=== PATIENT | male | born 1940 | race Caucasian/White ===

== ENCOUNTER 2016-07-15 12:53 | Outpatient (CLI) | payer MEDICARE, OTHER | END 2016-07-15 12:54 | disposition home or self-care (01) | DX: I34.8 Other nonrheumatic mitral valve disorders (principal) ==

== ENCOUNTER 2016-08-15 09:46 | Outpatient (CLI) | payer MEDICARE | END 2016-08-15 09:47 | disposition home or self-care (01) | DX: I34.8 Other nonrheumatic mitral valve disorders (principal) ==

== ENCOUNTER 2016-08-22 09:20 | Outpatient (CLI) | payer MEDICARE | END 2016-08-22 09:21 | disposition home or self-care (01) | DX: I34.8 Other nonrheumatic mitral valve disorders (principal) ==

== ENCOUNTER 2016-08-29 09:54 | Outpatient (CLI) | payer MEDICARE | END 2016-08-29 09:55 | disposition home or self-care (01) | DX: I34.8 Other nonrheumatic mitral valve disorders (principal) ==

== ENCOUNTER 2016-09-05 11:17 | Outpatient (CLI) | payer MEDICARE | END 2016-09-05 11:18 | disposition home or self-care (01) | DX: I34.8 Other nonrheumatic mitral valve disorders (principal) ==

== ENCOUNTER 2016-09-12 09:59 | Outpatient (CLI) | payer MEDICARE | END 2016-09-12 10:00 | disposition home or self-care (01) | DX: I34.8 Other nonrheumatic mitral valve disorders (principal) ==

== ENCOUNTER 2016-11-21 16:02 | Outpatient (CLI) | payer MEDICARE | END 2016-11-21 16:03 | disposition home or self-care (01) | LOC: RT 16:02 | PROVIDERS: ATTEND Internal Medicine Cardiovascular Disease | DX: I48.91 Unspecified atrial fibrillation (principal); I25.10 Atherosclerotic heart disease of native coronary artery without angina pectoris | CPT/HCPCS: 93005 ==

== ENCOUNTER 2017-01-01 10:43 | Outpatient (CLI) | payer MEDICARE | END 2017-01-01 10:44 | disposition home or self-care (01) | LOC: DI 10:43 | PROVIDERS: ATTEND Internal Medicine Cardiovascular Disease | DX: I48.91 Unspecified atrial fibrillation (principal); I25.10 Atherosclerotic heart disease of native coronary artery without angina pectoris | CPT/HCPCS: 93306 ==

== ENCOUNTER 2017-03-03 14:42 | Outpatient (CLI) | payer MEDICARE ==
--- NOTE | 2017-03-03 15:20 | XRAY Report ---
THREE-VIEW RIGHT FOOT: 03/03/2017 CLINICAL INDICATION: Metatarsal pain. FINDINGS: AP, lateral, oblique views of the right foot demonstrate no evidence of acute fracture. O steoarthritic changes are present in the interphalangeal joints. No radiopaque foreign body is seen in the soft tissues. IMPRESSION: OSTEOARTHRITIS. NO EVIDENCE OF FRACTURE. JOB #: [id number] EXT JOB #:[id number]
== END 2017-03-03 14:43 | disposition home or self-care (01) ==
LOC: DI 14:42
PROVIDERS: ATTEND Internal Medicine
DX: M77.41 Metatarsalgia, right foot (principal); M19.071 Primary osteoarthritis, right ankle and foot

== ENCOUNTER 2018-04-07 10:21 | Outpatient (CLI) | payer MEDICARE | END 2018-04-07 10:22 | disposition home or self-care (01) | LOC: SC 10:21 | PROVIDERS: ATTEND Internal Medicine Pulmonary Disease | DX: G47.10 Hypersomnia, unspecified (principal); R06.83 Snoring | CPT/HCPCS: 99203; G0463; 99212 ==

== ENCOUNTER 2018-05-10 19:28 | Outpatient (CLI) | payer MEDICARE | END 2018-05-10 19:29 | disposition home or self-care (01) | LOC: SC 19:28 | PROVIDERS: ATTEND Internal Medicine Pulmonary Disease | DX: R06.83 Snoring (principal); G47.10 Hypersomnia, unspecified | CPT/HCPCS: 95810 ==

== ENCOUNTER 2018-06-23 13:09 | Outpatient (CLI) | payer MEDICARE | END 2018-06-23 13:10 | disposition home or self-care (01) | LOC: SC 13:09 | PROVIDERS: ATTEND Internal Medicine Pulmonary Disease | DX: R06.83 Snoring (principal) | CPT/HCPCS: 99213; G0463; 99212 ==

== ENCOUNTER 2019-02-09 10:13 | Outpatient (CLI) | payer MEDICARE | END 2019-02-09 10:14 | disposition home or self-care (01) | LOC: DI 10:13 | PROVIDERS: ATTEND Internal Medicine Cardiovascular Disease | DX: Z98.890 Other specified postprocedural states (principal); I34.0 Nonrheumatic mitral (valve) insufficiency | CPT/HCPCS: 93306 ==

== ENCOUNTER 2019-08-03 18:54 | Outpatient (CLI) | payer MEDICARE ==
--- NOTE | 2019-08-04 20:28 | Ultrasound Report ---
Reason: EDEMA OF LOWER EXTREMITY Procedure Date: 08/03/2019 Accession Number: [id number] / [id number] Procedure: US - Duplex Ext Veins Right CPT Code: Final Report FULL RESULT: EXAM: RIGHT LOWER EXTREMITY VENOUS ULTRASOUND EXAM DATE: 08/03/2019 07:59 PM. CLINICAL HISTORY: EDEMA OF LOWER EXTREMITY. "Localized edema right leg". COMPARISON: None. TECHNIQUE: Real-time sonographic vascular imaging was performed by the space buyer through the lower extremity utilizing both color-flow and Doppler spectral analysis. Multiple technical sales representatives static images were saved for review. FINDINGS: Common Femoral Vein (CFV): Normal. CFV-GSV Junction: Normal. Profunda Femoral Vein (PFV): Normal. Femoral Vein (FV) Prox: Normal. Femoral Vein (FV) Mid: Normal. Femoral Vein (FV) Dist: Normal. Popliteal Vein: Normal. Posterior Tibial Veins: Normal. Peroneal Veins: Normal. Contralateral Side CFV: Normal. Other: Prominent right groin subcutaneous 1.8 x 0.9 x 0.8 cm lymph node. Small quantity of anterior knee simple patellar recess joint fluid. IMPRESSION: 1. No evidence for deep venous thrombosis. 2. Small quantity of fluid anterior right knee. RADIA
== END 2019-08-03 18:55 | disposition home or self-care (01) ==
LOC: DI 18:54
PROVIDERS: ATTEND Registered Nurse
DX: R60.0 Localized edema (principal); M25.461 Effusion, right knee

== ENCOUNTER 2019-08-07 16:53 | Emergency (ER) | payer MEDICARE ==
--- NOTE | 2019-08-07 17:08 | ED Physician Documentation ---
PD HPI LOWER EXT INJURY - Stated complaint Stated Complaint: RT LEG SWELLING - Chief complaint Chief Complaint: Heent - History obtained from History obtained from: Patient - History of Present Illness PD HPI LOW EXT INJURY LOCATION: Right, Knee Type of injury: Twist (he was kneeling on floor and started to get up, with slight external rotation of the knee and felt a pop and abrupt onset of pain to the knee. Pain along medial and posterior aspect. Has had continued pain in knee, with swelling of it, and developed some swelling of lower leg as well. Pain with getting up from sitting and initially straightening the leg. Not as painful with just standing. Hurts with walking. Seen by Clinic 2 days after and had U/S of leg to eval for DVT, which was negative. has had persistent and worsening swelling of the right knee, now hurting with walking and ROM.). No: Fall Where injury occurred: Home Timing - onset: How many days ago (6) Timing - duration: Days (6) Timing - details: Abrupt onset, Still present Worsened by: Palpating Associated symptoms: Swelling. No: Weakness, Numbness Similar symptoms before: Has not had sx before Recently seen: Clinic (4 days ago and ordered U/S of the leg. Told to take ibuprofen.) Review of Systems Constitutional: denies: Fever, Chills Skin: denies: Abrasion (s), Laceration (s) Musculoskeletal: reports: Extremity swelling (right knee and then right lower leg and ankle) Neurologic: denies: Focal weakness, Numbness PD PAST MEDICAL HISTORY - Past Medical History Cardiovascular: Other Respiratory: Pneumonia Endocrine/Autoimmune: None GI: None : None HEENT: Chronic hearing loss Psych: None Musculoskeletal: None Derm: None - Past Surgical History General: Appendectomy - Present Medications Home Medications: Ambulatory Orders Medication Instructions Recorded Confirmed Finasteride 5 mg PO DAILY 02/10/15 02/13/15 Hydrocodone/Acetaminophen [[place] 1 each PO Q6H PRN #15 tablet 08/07/19 5-325 Tablet] Naproxen 375 mg PO BID #20 tablet 08/07/19 - Allergies Allergies/Adverse Reactions: Allergies Allergy/AdvReac Type Severity Reaction Status Date / Time latex Allergy Rash Verified 08/07/19 16:57 Sulfa (Sulfonamide Allergy Unknown Verified 08/07/19 16:57 Antibiotics) PD ED PE NORMAL - Vitals Vital signs reviewed: Yes - General General: Alert and oriented X 3, No acute distress, Well developed/nourished - Derm Derm: Normal color, Warm and dry - Extremities Extremities: No calf tenderness / cord, Other (right knee with large effusion. Mild redness medial aspect. No skin lesions. Posteriorly not tender. Tender medial and anterior areas. Pain with ROM and with stress testing, particularly front to back (cruciate testing) and also pivoting (suggests meniscal).). No: No edema (has edema in lower leg and foot. Not tender in calf. ) - Neuro Neuro: Alert and oriented X 3, No motor deficit, No sensory deficit Results - Vitals Vitals: Vital Signs - 24 hr 08/07/19 08/07/19 08/07/19 16:57 17:24 18:30 Temperature 36.5 C 36.8 C Heart Rate 69 70 70 Respiratory 14 16 14 Rate Blood Pressure 136/69 H 126/67 O2 Saturation 100 100 95 Oxygen O2 Source Room air - Labs Labs: Microbiology 08/07/19 18:24 Body Fluid Culture - Preliminary Synovial Fluid Laboratory Tests 08/07/19 08/07/19 18:24 18:24 Fluid Source SYNOVIAL Fluid Color YELLOW Fluid Clarity CLOUDY Fluid WBC 83569 Fluid RBC 3000 Fluid Neutrophils % 95 Fluid Lymphocytes % 5 Fld Mesothelial Cell % Not Reportable Fluid Crystals NONE SEEN - Rads (name of study) right knee Radiology: Prelim report reviewed (no fractures.), See rad report Procedures - Arthrocentesis Joint: Knee Preparation: Consent obtained (verbal), Sterile prep and drape. No: Ultrasound used Anesthesia: Lidocaine 1% Fluid: Sent for cell count, Cloudy, Sent for crystals, Sent for culture, Fluid obtained - cc (80) Aftercare: Dressing applied, No complications PD MEDICAL DECISION MAKING - ED course Complexity details: considered differential (sounds like meniscal or cruciate injury with effusion increasing. Does not seem infectious. no history of gout. ), d/w patient Departure - Departure Disposition: 01 Home, Self Care Clinical Impression: Internal derangement of right knee, Knee effusion, right Condition: Stable Record reviewed to determine appropriate education?: Yes Instructions: ED Meniscal Injury Knee Poss Follow-Up: Eloy Rocha MD [Primary Care Provider] - Victor M Watkins MD [Provider Admit Priv/Credential] - Prescriptions: Hydrocodone/Acetaminophen [[place] 5-325 Tablet] 1 each PO Q6H PRN #15 tablet PRN Reason: Pain Naproxen 375 mg PO BID #20 tablet Comments: Use the Anthony wrap on the knee to help reduce swelling in it. Make sure is not too tight so does not promote swelling below the knee and in the ankle. He is a knee brace when up and around to limit the range of motion and help support the ligaments and cartilage. Use an anti-inflammatory such as naproxen twice daily for the next 7 to 10 days with food. To that add Tylenol or hydrocodone if needed for pains. I think you have an injury of either the cruciate ligament or the cartilage in the knee and that is promoting the swelling in response. Follow-up with orthopedics this coming week, call Friday for an appointment. They can reassess it with the swelling down and hurting less to try to get a better sense of the injury there. The knee brace and wrap are appropriate treatments for those c onditions initially. Discharge Date/Time: 08/07/19 19:14
[2019-08-07] MEDS ORDERED: NAPROXEN 250 MG TABLET PO STA (17:27)
[2019-08-07] MEDS ORDERED: ACETAMINOPHEN 325 MG TABLET PO STA (17:27)
--- NOTE | 2019-08-07 18:19 | XRAY Report ---
Reason: KNEE INJ X 1 WEEK AGO (RT) Procedure Date: 08/07/2019 Accession Number: [id number] / [id number] Procedure: XR - Knee 2 View RT CPT Code: Final Report FULL RESULT: EXAM: RIGHT KNEE RADIOGRAPHY EXAM DATE: 08/07/2019 05:48 PM. CLINICAL HISTORY: Pain and swelling after injury COMPARISON: None. TECHNIQUE: 3 views. FINDINGS: Bones: Normal. No fractures or bone lesions. Joints: Normal. No effusion. No subluxations. Soft Tissues: There is suprapatellar soft tissue swelling. IMPRESSION: 1. Suprapatellar soft tissue swelling. No fracture or subluxation. RADIA
[2019-08-07 19:13] LABS: BF COLOR YELLOW; BF SOURCE SYNOVIAL; CC,BF RBC 3000 /mm^3
[2019-08-07 19:17] VITALS: BP 126/67
[2019-08-07 20:44] LABS: LYMPHOCYTES %,BODY FLUID 5
--- NOTE | 2019-08-09 20:22 | ED Physician Documentation ---
ED Addendum - Addendum Addendum: I reviewed patient's culture results from his knee arthrocentesis at 19:45 on 08/09/2019, they show 2+ growth of staph aureus. Reviewing his chart this does appear to be a joint arthrocentesis and not a prepatellar aspiration, so this is consistent with septic arthritis. I called the patient and reached him at his home, he is having continued pain and swelling of the knee, I discussed that he has an infection and needs to be seen tonight. Unfortunately we do not have orthopedics coverage, we spoke with [facility], and the ED provider there states they do have orthopedics coverage and are happy to see the patient. We are faxing records over to the [facility] department. Patient states he will drive to [facility], he also is aware that he can come here if needed, and we would arrange transfer to the proper orthopedic care.
== END 2019-08-07 19:14 | disposition home or self-care (01) ==
LOC: ED 16:53
DX: M23.91 Unspecified internal derangement of right knee (principal); M25.461 Effusion, right knee
CPT/HCPCS: 20610; 73560; 87070; 87181; 87205; 89051; 89060; 99283; 99284; A9270

== ENCOUNTER 2019-09-09 09:42 | Outpatient (CLI) | payer MEDICARE | END 2019-09-09 09:43 | disposition home or self-care (01) | LOC: LAB.S 09:42 | PROVIDERS: ATTEND Orthopaedic Surgery | DX: M00.061 Staphylococcal arthritis, right knee (principal) | CPT/HCPCS: 36415; 86140 ==

== ENCOUNTER 2019-09-21 11:22 | Outpatient (CLI) | payer MEDICARE | END 2019-09-21 11:23 | disposition home or self-care (01) | LOC: LAB.S 11:22 | PROVIDERS: ATTEND Orthopaedic Surgery | DX: M00.061 Staphylococcal arthritis, right knee (principal) | CPT/HCPCS: 36415; 86140 ==

== ENCOUNTER 2023-09-17 10:22 | Outpatient (CLI) | payer MEDICARE ==
[2023-09-17 10:36] LABS: BASOPHILS % (AUTO) 0.4 %; EOSINOPHILS # (AUTO) 0.2 10^3/uL (0.0-0.7); EOSINOPHILS % (AUTO) 3.2 %; HCT - HEMATOCRIT 37.9 % (42.0-52.0); LYMPHOCYTES # (AUTO) 1.4 10^3/uL (1.5-3.5); LYMPHOCYTES % (AUTO) 24.7 %; MEAN CORPUSCULAR HEMOGLOBIN 30.4 pg (27.0-31.0); MEAN CORPUSCULAR HGB CONC 31.7 g/dL (32.0-36.0); MEAN CORPUSCULAR VOLUME 95.9 fL (80.0-94.0); MEAN PLATELET VOLUME 8.7 fL (7.4-11.4); MONOCYTES # (AUTO) 0.3 10^3/uL (0.0-1.0); MONOCYTES % (AUTO) 5.6 %; NEUTROPHILS # (AUTO) 3.7 10^3/uL (1.5-6.6); NEUTROPHILS % (AUTO) 65.9 %; PLT - PLATELET COUNT 164 10^3/uL (130-450); RED BLOOD COUNT 3.95 10^6/uL (4.70-6.10); RED CELL DISTRIBUTION WIDTH 13.9 % (12.0-15.0); WHITE BLOOD COUNT 5.6 x10^3/uL (4.8-10.8)
[2023-09-17 11:19] LABS: THYROID STIMULATING HORMONE 1.4 uIU/mL (0.34-5.60)
[2023-09-17 11:27] LABS: ALBUMIN 4.2 g/dL (3.2-5.5); ALBUMIN/GLOBULIN RATIO 1.6 (1.0-2.2); BILIRUBIN,TOTAL 0.7 mg/dL (0.2-1.0); CALCIUM 9.6 mg/dL (8.5-10.3); CREATININE 1.2 mg/dL (0.6-1.3); TOTAL PROTEIN 6.8 g/dL (6.4-8.9)
== END 2023-09-17 10:23 | disposition home or self-care (01) ==
LOC: LAB 10:22
PROVIDERS: ATTEND Internal Medicine
DX: R06.09 Other forms of dyspnea (principal)
CPT/HCPCS: 36415; 80053; 83880; 84443; 85025

== ENCOUNTER 2023-10-31 08:44 | Outpatient (CLI) | payer MEDICARE | END 2023-10-31 08:45 | disposition home or self-care (01) | LOC: DI 08:44 | PROVIDERS: ATTEND Internal Medicine | DX: I08.0 Rheumatic disorders of both mitral and aortic valves (principal); I50.30 Unspecified diastolic (congestive) heart failure | CPT/HCPCS: 93307 ==

== ENCOUNTER 2023-11-21 12:00 | Outpatient (CLI) | payer MEDICARE ==
--- NOTE | 2023-11-21 13:19 | XRAY Report ---
PROCEDURE: Chest 2V INDICATIONS: DYSPNEA TECHNIQUE: 2 views of the chest were acquired. COMPARISON: No prior studies available for review FINDINGS: Surgical changes and devices: Multiple median sternotomy wires are present. Lungs and pleura: No substantial pleural effusions or pneumothorax. Diffuse interstitial prominence. Hyperaeration and flattening of the diaphragms. Mild perihilar airway thickening. Mild vascular isai estion. No dense consolidation. Mediastinum: Mediastinal contours appear normal. Heart size is enlarged. Bones and chest wall: No suspicious bony lesions. Overlying soft tissues appear unremarkable. IMPRESSION: Cardiomegaly with findings suggestive of mild pulmonary edema/CHF. A concurrent infectious or inflamm atory process not excluded if clinically appropriate. No dense consolidation seen. There are also findings compatible with chronic obstructive pulmonary physiology. Reviewed by: Mesfin Casanova MD on 11/21/2023 1:18 PM PDT Approved by: Mesfin Casanova MD on 11/21/2023 1:18 PM PDT Station ID: [id number]
== END 2023-11-21 12:01 | disposition home or self-care (01) ==
LOC: DI 12:00
PROVIDERS: ATTEND Internal Medicine
DX: I51.7 Cardiomegaly (principal); R06.09 Other forms of dyspnea

== ENCOUNTER 2024-03-11 15:17 | Outpatient (CLI) | payer MEDICARE ==
--- NOTE | 2024-03-11 17:46 | XRAY Report ---
PROCEDURE: Lumbar Spine 2-3V INDICATIONS: LOW BACK PAIN TECHNIQUE: 2 views of the lumbar spine were acquired. COMPARISON: None. FINDINGS: Surgical change: None. Bones: 5 [id number]-amwncmc vertebrae are present. There is normal bony alignment. No vertebral body co mpression fractures. No suspicious bony lesions. Multilevel degenerative disc and foraminal narrowin g most prominent at L4-5 and L5-S1. Scattered areas of anterior osteophytes are present. Soft tissues: Overlying bowel gas pattern is normal. No suspicious soft tissue calcifications. IMPRESSION: Multilevel degenerative changes most severe at L4-5, L5-S1. Reviewed by: Rochelle Wellington MD on 03/11/2024 5:45 PM PDT Approved by: Rochelle Wellington MD on 03/11/2024 5:45 PM PDT Station ID: [id number]
== END 2024-03-11 15:18 | disposition home or self-care (01) ==
LOC: DI 15:17
PROVIDERS: ATTEND Student in an Organized Health Care Education/Training Program
DX: M47.816 Spondylosis without myelopathy or radiculopathy, lumbar region (principal); M47.817 Spondylosis without myelopathy or radiculopathy, lumbosacral region

== ENCOUNTER 2024-03-28 10:28 | Outpatient (CLI) | payer MEDICARE | END 2024-03-28 23:59 | disposition critical access hospital (66) | LOC: EMS 10:28 | DX: M54.50 Low back pain, unspecified (principal); M53.3 Sacrococcygeal disorders, not elsewhere classified; W18.39XA Other fall on same level, initial encounter; Y92.007 Garden or yard of unspecified non-institutional (private) residence as the place of occurrence of the external cause | CPT/HCPCS: A0425; A0429 ==

== ENCOUNTER 2024-03-28 11:04 | Emergency (ER) | payer MEDICARE ==
--- NOTE | 2024-03-28 11:17 | ED Physician Documentation ---
PD HPI BACK PAIN - Stated complaint Stated Complaint: GLF - History obtained from History obtained from: Patient, EMS - Additional information Additional information: 83-year-old gentleman with history of heart valve repair developed low back pain after lifting a heavy water jug a few weeks ago. He was seen in the clinic and started on nambutone after x-rays which did show multilevel degenerative changes. This morning he took the dogs out at about 6 AM and had more back pain and fell. He did not feel injured from the fall but he could not get himself off the ground and laid on the ground for about 4 hours before his found him. He does not want anything for pain now. PD PAST MEDICAL HISTORY - Past Medical History Cardiovascular: Other Respiratory: Pneumonia Neuro: None Endocrine/Autoimmune: None GI: None : None HEENT: Chronic hearing loss Psych: None Musculoskeletal: None Derm: None - Past Surgical History Past Surgical History: Yes General: Appendectomy Cardiovascular: Other - Present Medications Home Medications: Ambulatory Orders Medication Instructions Recorded Confirmed HYDROcod/ACETAM 5/325 [[place] 5/325] 1 - 2 tab PO Q6H PRN #15 tablet 03/28/24 Ipratropium [place] 1 spray NS BID 03/28/24 03/28/24 Tamsulosin [Flomax] 0.4 mg PO DAILY #14 cap 03/28/24 - Allergies Allergies/Adverse Reactions: Allergies Allergy/AdvReac Type Severity Reaction Status Date / Time latex Allergy Rash Verified 03/28/24 11:28 Sulfa (Sulfonamide Allergy Unknown Verified 03/28/24 11:28 Antibiotics) - Social History Does the pt smoke?: No Smoking Status: Never smoker Does the pt drink ETOH?: Yes Does the pt have substance abuse?: No - Immunizations Immunizations are current?: Yes PD ED PE NORMAL - Vitals Vital signs reviewed: Yes - General General: Alert and oriented X 3, No acute distress - Cardiac Cardiac: RRR - Respiratory Respiratory: No respiratory distress - Abdomen Abdomen: Other (He is quite tender in the low abdomen with well-healed appende ctomy scar in the right lower quadrant.) - Extremities Extremities: Other (The patient has equal and normal Achilles and patellar reflexes bilaterally. Normal sensation in all areas of the legs. Patient denies saddle anesthesia. Normal strength in flexion-extension at the ankles, knees, and flexion of the hips.) - Neuro Neuro: Alert and oriented X 3 Results - Vitals Vitals: Vital Signs - 24 hr 03/28/24 03/28/24 03/28/24 11:10 12:03 15:23 Temperature 36 C L 36.5 C Heart Rate 65 83 80 Respiratory 16 16 16 Rate Blood Pressure 151/83 H 152/85 H 138/82 H O2 Saturation 100 99 100 Oxygen O2 Source Room air - Labs Labs: Laboratory Tests 03/28/24 03/28/24 11:45 11:45 WBC 5.9 RBC 3.87 L Hgb 11.2 L Hct 34.8 L MCV 89.9 MCH 28.9 MCHC 32.2 RDW 14.6 Plt Count 172 MPV 8.9 Neut # (Auto) 4.5 Lymph # (Auto) 0.9 L [place] # (Auto) 0.6 Eos # (Auto) 0.0 Baso # (Auto) 0.0 Absolute Nucleated RBC 0.00 Nucleated RBC % 0.0 Sodium 134 L Potassium 3.9 Chloride 102 Carbon Dioxide 24 Anion Gap 8.0 BUN 16 Creatinine 0.9 Estimated GFR (MDRD) 80 L Glucose 115 H Calcium 9.1 Total Bilirubin 1.2 H AST 12 ALT 11 Alkaline Phosphatase 49 Total Creatine Kinase 18 L Total Protein 6.5 Albumin 3.4 Globulin 3.1 Albumin/Globulin Ratio 1.1 - Rads (name of study) Ct A/P and L Spine Relevant Findings:: Final report received, EMP independent interpretation of test PD Medical Decision Making - ED course Complexity details: reviewed results (Labs showing mild anemia, relatively unremarkable CMP.) ED course: He presents with back pain, the advanced age and abdominal tenderness would worrisome for an alternative etiology as opposed to simple musculoskeletal low back pain. As such imaging will be obtained. Subsequently CT imaging demonstrated some arthritis in his back, but more notably was the very large bladder with prostatomegaly and some hydronephrosis. He had incidental findings as well. This was discussed with him and he was able to ambulate to the bathroom after some pain medication and he urinated all the way out as much as he could after which his postvoid bladder scan was in the 400s. Discussed with him that he would need urology follow-up and we will start Flomax in the interim. Departure - Departure Disposition: 01 Home, Self Care Condition: Good Record reviewed to determine appropriate education?: Yes Instructions: ED Low Back Pain Injury Follow-Up: Rober John MD [Provider Admit Priv/Credential] - Prescriptions: Tamsulosin [Flomax] 0.4 mg PO DAILY #14 cap HYDROcod/ACETAM 5/325 [[place] 5/325] 1 - 2 tab PO Q6H PRN #15 tablet PRN Reason: Pain Comments: I sent your prescription electronically to the [facility] in [place]. As discussed, CT imaging of her back definitely showed some arthritis but frankly not too bad for the tender age of 83. We also noted on the CT of your belly that your bladder was quite large, probably from a large prostate, you also have a right-sided kidney stone but it is not passing but could bother you someday. Because of that, in addition to pain medications I am sending a prescription for Flomax which is a bladder medication to the [facility] and you should follow-up with our urologist. His numbers on this form and recommend you call his office tomorrow for an appointment. You should also follow-up with your primary care physician and return for any new or worsening symptoms. I am prescribing a short course of narcotic pain medication for you. These are potentially dangerous and addictive medications that should be used carefully. These medications may constipate you. Take an ynby-aox-yzkvakm stool softener (docusate) twice daily with plenty of water while taking these medications. If you go 24 hours without a bowel movement, take lyui-joo-sfdrqht miralax, per package instructions. Do not drink or drive while taking these medications. If you received narcotic or sedating medications while in the emergency department, do not drive for 24 hours. Store this medication in a safe, secure place and out of reach of children. It is a violation of federal law to give or sell this medication to another person or to use in a manner other than prescribed. The ED will not refill narcotic prescriptions, including prescriptions lost or stolen. To dispose of unwanted medications: 1. [facility]'s Office provides a drop box for medication in pill form only (no liquids) 8:00 am to 4:30 p.m. Friday-Friday in the lobby of the [facility], [address] [place] [address]. Empty pills into ziplock bag before disposal. Call [phone] for information. 2.[employer] is a free service available to all [facility] residents. Go to [email or web address] Note that many narcotic pain relievers also contain Tylenol/acetaminophen. Please ensure that your total dose of acetaminophen from all sources does not exceed 3 g (3000 mg) per day. Discharge Date/Time: 03/28/24 15:23
[2024-03-28 11:52] LABS: BASOPHILS % (AUTO) 0.2 %; HCT - HEMATOCRIT 34.8 % (42.0-52.0); HGB - HEMOGLOBIN 11.2 g/dL (14.0-18.0); LYMPHOCYTES # (AUTO) 0.9 10^3/uL (1.5-3.5); LYMPHOCYTES % (AUTO) 14.4 %; MEAN CORPUSCULAR HEMOGLOBIN 28.9 pg (27.0-31.0); MEAN CORPUSCULAR HGB CONC 32.2 g/dL (32.0-36.0); MEAN CORPUSCULAR VOLUME 89.9 fL (80.0-94.0); MEAN PLATELET VOLUME 8.9 fL (7.4-11.4); MONOCYTES # (AUTO) 0.6 10^3/uL (0.0-1.0); MONOCYTES % (AUTO) 9.3 %; NEUTROPHILS # (AUTO) 4.5 10^3/uL (1.5-6.6); NEUTROPHILS % (AUTO) 75.8 %; PLT - PLATELET COUNT 172 10^3/uL (130-450); RED BLOOD COUNT 3.87 10^6/uL (4.70-6.10); RED CELL DISTRIBUTION WIDTH 14.6 % (12.0-15.0); WHITE BLOOD COUNT 5.9 x10^3/uL (4.8-10.8)
[2024-03-28 12:13] LABS: ALBUMIN 3.4 g/dL (3.2-5.5); ALBUMIN/GLOBULIN RATIO 1.1 (1.0-2.2); BILIRUBIN,TOTAL 1.2 mg/dL (0.2-1.0); CALCIUM 9.1 mg/dL (8.5-10.3); CREATININE 0.9 mg/dL (0.6-1.3); POTASSIUM 3.9 mmol/L (3.5-4.5); TOTAL PROTEIN 6.5 g/dL (6.4-8.9)
[2024-03-28] MEDS ORDERED: iohexoL-300 100 ML VIAL ONE (12:18)
[2024-03-28] MEDS: KETOROLAC 15 MG/ML VIAL IVP STA (12:47)
[2024-03-28] MEDS: HYDROmorphone 1 MG/ML CARPUJECT IVP STA (12:48)
--- NOTE | 2024-03-28 13:24 | CT Report ---
PROCEDURE: Abdomen/Pelvis W INDICATIONS: iv only, back pain CONTRAST: omni, 100 TECHNIQUE: After the administration of intravenous contrast, a CT scan of the abdomen and pelvis was performed. Images were recorded and evaluated at appropriate window settings. Reformats: coronal and sagittal. F or radiation dose reduction, the following was used: automated exposure control, adjustment of mA and /or kV according to patient size. COMPARISON: CT lumbar spine of same date FINDINGS: Image quality: Diagnostic. Lower chest: Unremarkable. Liver: No masses. Hepatic steatosis. Gallbladder: No radiopaque stones or wall thickening. Biliary tree: No intrahepatic or extrahepatic dilation, accounting for age. Spleen: No splenomegaly. Pancreas: No pancreatic ductal dilation. Adrenals: No adrenal nodule. Kidneys and ureters: Large right inferior pole stone measuring 1 cm with density of [address] [place] u nits. Multiple bilateral simple exophytic renal cysts. Mild bilateral hydronephrosis. Stomach, bowel and peritoneum: No gastric or small bowel dilation. No abnormal wall thickening. No pa thologic free fluid. Diverticulosis without evidence of diverticulitis. Lymph nodes: No central or retroperitoneal adenopathy. Vessels: No infrarenal aortic aneurysm. Patent portal vein. PELVIS Reproductive organs: Prostatomegaly. With central calcifications Bladder: The bladder is well distended Pelvic lymph nodes: No pelvic adenopathy by size criteria. Bones: No aggressive osseous abnormality. Other: No significant ventral or inguinal hernia. IMPRESSION: 1.Mild bilateral hydronephrosis with distended bladder suggestive of bladder outlet obstruction. 2.Prostatomegaly 3.Hepatic steatosis. 4.Large right inferior nonobstructing nephrolith 5.Bilateral exophytic cystic changes of the kidneys 6.Diverticulosis without evidence of acute diverticulitis. Reviewed by: Carl Luther MD on 03/28/2024 12:23 PM SANDY Approved by: Carl Luther MD on 03/28/2024 12:23 PM AKDT Station ID: [id number]
--- NOTE | 2024-03-28 13:27 | CT Report ---
PROCEDURE: Lumbar Spine WO INDICATIONS: back inj TECHNIQUE: Noncontrast 3 mm thick sections acquired from the T12 level to the sacrum. Sagittal and coronal refo rmats were constructed. For radiation dose reduction, the following was used: automated exposure co ntrol, adjustment of mA and/or kV according to patient size. COMPARISON: CT abdomen and pelvis from same date FINDINGS: Image quality: Excellent. Bones: There is normal bony alignment. No acute vertebral body compression fractures. No suspiciou s lytic or blastic bony lesions. Central spinal caliber is of normal overall caliber. No pars defec ts. T12-L1: Normal in appearance. L1-L2: Normal in appearance. L2-L3: Normal in appearance. L3-L4: Mild disc height loss with vacuum disc phenomenon. No significant spinal canal or foraminal narrowing. L4-L5: Mild disc height loss and vacuum disc phenomenon. No significant spinal canal or foraminal n arrowing. L5-S1: Normal in appearance. Soft tissues: No retroperitoneal masses or hematomas. Visualized aorta is normal in caliber. Right nonobstructing nephrolithiasis. Mild bilateral hydronephrosis with prominent fluid filled bladder. IMPRESSION: No lumbar fracture. Mild disc disease. No osseous spinal canal or foraminal narrowing. Mild bilateral hydronephrosis and prominent bladder, correlate for outlet obstruction. Right nonobstructive nephrolithiasis. Reviewed by: Carl Luther MD on 03/28/2024 12:26 PM SANDY Approved by: Carl Luther MD on 03/28/2024 12:26 PM SANDY Station ID: [id number]
[2024-03-28 15:32] VITALS: BP 138/82; O2SAT 100
[2024-03-28] MEDS: iohexoL-300 100 ML VIAL IVP ONE (17:38)
== END 2024-03-28 15:23 | disposition home or self-care (01) ==
LOC: EDUNIT# → ED 11:04
DX: S39.012A Strain of muscle, fascia and tendon of lower back, initial encounter (principal); W19.XXXA Unspecified fall, initial encounter; N40.1 Benign prostatic hyperplasia with lower urinary tract symptoms; R33.8 Other retention of urine; N13.30 Unspecified hydronephrosis; R10.819 Abdominal tenderness, unspecified site
CPT/HCPCS: 36415; 72131; 74177; 80053; 82550; 85025; 96374; 96375; 99284; J1170; Q9967

== ENCOUNTER 2024-04-20 14:29 | Inpatient (IN) ==
--- NOTE | 2024-04-20 14:37 | ED Physician Documentation ---
History of Present Illness Stated complaint Stated Complaint: GLF Chief complaint Chief Complaint: Trauma Hd/Nk History obtained from History obtained from: Patient and EMS Additonal information Additional information: He has a history of remote mitral valve repair and now frequent falls. Lives at home with andHas been seen in the emergency department pretty frequently as of late for falls, this is his I think fourth visit for a fall in about his many weeks. He was outside gardening today. He started to feel weak and proceeded to go inside, On the way in he got dizzy and fell forward hitting his face on concrete. He has a remote history of A-fib and was noted to be in A-fib on the way here, and has predominantly facial and head injuries although he feels kind of sore and achy all over and he is having chills. He did have a prehospital temperature of 101, but on repeat it was 98. He recently had a Olvera catheter because of urinary retention. Meds/Allgy Home Medications Ambulatory Orders Medication Instructions Recorded Confirmed hydrocodone 5 mg-acetaminophen 325 1 - 2 tab PO Q6H PRN Pain #15 tabs 03/28/24 04/20/24 mg tablet ipratropium bromide 21 mcg (0.03 1 spray NS BID 03/28/24 04/20/24 %) nasal spray tamsulosin 0.4 mg capsule 0.4 mg PO DAILY #14 caps 03/28/24 04/20/24 hydrocodone 5 mg-acetaminophen 325 1 tab PO Q6HR #12 tabs 04/02/24 04/20/24 mg tablet Allergies Allergies Allergy/AdvReac Type Severity Reaction Status Date / Time latex Allergy Rash Verified 04/20/24 14:35 Sulfa (Sulfonamide Allergy Unknown Verified 04/20/24 14:35 Antibiotics) [facility] Social History Social History Smoking Status: Never smoker Do you dip or chew tobacco?: No Relationship: Do you feel safe in your home environment?: Yes Suffered physical, verbal, emotional, or financial abuse?: No History of Abuse: No Frequency: Daily Number of Amount/day: 1 POLST Patient has POLST: No Exam HENMT Numerous abrasions and scrapes on the face. Poor dentition but nothing looks acute there. He is tender over the bridge of the nose. 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 Relevant findings are: Twelve-lead EKG at 1540 hrs. discloses atrial fibrillation with a rate of 98. He has a left bundle branch block. Normal QTc interval. No ST elevation or depression. Labs Labs: Laboratory Tests 04/20/24 04/20/24 04/20/24 14:47 14:49 15:28 WBC 8.1 RBC 3.61 L Hgb 9.9 L Hct 31.5 L MCV 87.3 MCH 27.4 MCHC 31.4 L RDW 15.9 H Plt Count 171 MPV 9.2 Neut # (Auto) 6.9 H Lymph # (Auto) 0.8 L [place] # (Auto) 0.4 Eos # (Auto) 0.0 Baso # (Auto) 0.0 Absolute Nucleated RBC 0.00 Nucleated RBC % 0.0 Sodium 127 L Potassium 4.1 Chloride 95 L Carbon Dioxide 26 Anion Gap 6.0 BUN 18 Creatinine 0.8 Estimated GFR (MDRD) 92 Glucose 133 H Lactic Acid 1.1 Calcium 8.8 Total Bilirubin 1.2 H AST 14 ALT 12 Alkaline Phosphatase 48 B-Natriuretic Peptide 1843 H Total Protein 6.8 Albumin 3.1 L Globulin 3.7 Albumin/Globulin Ratio 0.8 L Urine Color Urine Clarity Urine pH Ur Specific Ava Urine Protein Urine Glucose (UA) Urine Ketones Urine Occult Blood Urine Nitrite Urine Bilirubin Urine Urobilinogen Ur Leukocyte Esterase Urine RBC Urine WBC Ur Epithelial Cells Ur Squamous Epith Cells Urine Bacteria Urine Culture Comments Nasal Adenovirus (PCR) NOT DETECTED Nasal B. parapertussis DNA (PCR) NOT DETECTED Nasal Coronavir 229E PCR NOT DETECTED Nasal Coronavir HKU1 PCR NOT DETECTED Nasal Coronavir NL63 PCR NOT DETECTED Nasal Coronavir OC43 PCR NOT DETECTED Nasal Enterovir/Rhinovir PCR NOT DETECTED Nasal Influenza B PCR NOT DETECTED Nasal Influenza A PCR NOT DETECTED Nasal Parainfluen 1 PCR NOT DETECTED Nasal Parainfluen 2 PCR NOT DETECTED Nasal Parainfluen 3 PCR NOT DETECTED Nasal Parainfluen 4 PCR NOT DETECTED Nasal RSV (PCR) NOT DETECTED Nasal B.pertussis DNA PCR NOT DETECTED Nasal C.pneumoniae (PCR) NOT DETECTED Cem Human Metapneumo PCR NOT DETECTED Nasal M.pneumoniae (PCR) NOT DETECTED Nasal SARS-CoV-2 (PCR) NOT DETECTED Ethyl Alcohol 04/20/24 04/20/24 15:38 16:48 WBC RBC Hgb Hct MCV MCH MCHC RDW Plt Count MPV Neut # (Auto) Lymph # (Auto) [place] # (Auto) Eos # (Auto) Baso # (Auto) Absolute Nucleated RBC Nucleated RBC % Sodium Potassium Chloride Carbon Dioxide Anion Gap BUN Creatinine Estimated GFR (MDRD) Glucose Lactic Acid Calcium Total Bilirubin AST ALT Alkaline Phosphatase B-Natriuretic Peptide Total Protein Albumin Globulin Albumin/Globulin Ratio Urine Color DARK YELLOW Urine Clarity CLEAR Urine pH 6.5 Ur Specific Ava 1.020 Urine Protein 30 H Urine Glucose (UA) NEGATIVE Urine Ketones NEGATIVE Urine Occult Blood MODERATE H Urine Nitrite NEGATIVE Urine Bilirubin NEGATIVE Urine Urobilinogen 2 H Ur Leukocyte Esterase NEGATIVE Urine RBC TNTC H Urine WBC 0-3 Ur Epithelial Cells FEW Transitional Ur Squamous Epith Cells RARE Squamous Urine Bacteria Rare Urine Culture Comments NOT INDICATED Nasal Adenovirus (PCR) Nasal B. parapertussis DNA (PCR) Nasal Coronavir 229E PCR Nasal Coronavir HKU1 PCR Nasal Coronavir NL63 PCR Nasal Coronavir OC43 PCR Nasal Enterovir/Rhinovir PCR Nasal Influenza B PCR Nasal Influenza A PCR Nasal Parainfluen 1 PCR Nasal Parainfluen 2 PCR Nasal Parainfluen 3 PCR Nasal Parainfluen 4 PCR Nasal RSV (PCR) Nasal B.pertussis DNA PCR Nasal C.pneumoniae (PCR) Cem Human Metapneumo PCR Nasal M.pneumoniae (PCR) Nasal SARS-CoV-2 (PCR) Ethyl Alcohol < 10.0 Rads (name of study) Single view chest x-ray demonstrates cardiomegaly with pulmonary vascular congestion most consistent with fluid overload, less likely infection: Relevant Findings:: Final report received and EMP independent interpretation of test CT of the head, C-spine, and face demonstrate no serious injuries. He does have a subcutaneous hematoma: Relevant Findings:: Final report received and EMP independent interpretation of test PD Medical Decision Making ED course ED course: This is a 83-year-old gentleman with history of mitral valve repair and recently frequent falls. He has a history of remote A-fib around the time of his mitral valve repair but it has been many years since he has been in [facility]. He fell today again, and injured his face. Clinically he is back in A-fib with a loud murmur. He denies shortness of breath, but looks fluid overloaded on chest x- ray with a BNP of 1800. He has a chronic stable anemia. And a worse sodium than usual, at 127, usual is 130. Imaging of the head, face, neck were negative for acute traumatic findings of note. Given the above I think it is reasonable to place him in observation for diuresis and spoke with Dr. John Dial for same at 4:27 PM. He did receive 40 mg of IV Lasix here. Discharge Plan Discharge Patient Disposition: ED Place in Observation Condition: Stable Clinical Impression: Atrial fibrillation, CHF (congestive heart failure), Acute hyponatremia, Abrasion of face, Falls frequently Interventions: ED Admission Assessment Last Done: 04/20/24 17:24
[2024-04-20 14:56] LABS: BASOPHILS % (AUTO) 0.2 %; HCT - HEMATOCRIT 31.5 % (42.0-52.0); HGB - HEMOGLOBIN 9.9 g/dL (14.0-18.0); LYMPHOCYTES # (AUTO) 0.8 10^3/uL (1.5-3.5); LYMPHOCYTES % (AUTO) 9.4 %; MEAN CORPUSCULAR HEMOGLOBIN 27.4 pg (27.0-31.0); MEAN CORPUSCULAR HGB CONC 31.4 g/dL (32.0-36.0); MEAN CORPUSCULAR VOLUME 87.3 fL (80.0-94.0); MEAN PLATELET VOLUME 9.2 fL (7.4-11.4); MONOCYTES # (AUTO) 0.4 10^3/uL (0.0-1.0); MONOCYTES % (AUTO) 4.4 %; NEUTROPHILS # (AUTO) 6.9 10^3/uL (1.5-6.6); NEUTROPHILS % (AUTO) 85.5 %; PLT - PLATELET COUNT 171 10^3/uL (130-450); RED BLOOD COUNT 3.61 10^6/uL (4.70-6.10); RED CELL DISTRIBUTION WIDTH 15.9 % (12.0-15.0); WHITE BLOOD COUNT 8.1 x10^3/uL (4.8-10.8)
--- NOTE | 2024-04-20 15:01 | XRAY Report ---
PROCEDURE: XR Chest 1V INDICATIONS: Sepsis TECHNIQUE: One view of the chest was acquired. COMPARISON: 09/21/2023 FINDINGS: Surgical changes and devices: None. Lungs and pleura: Diffuse interstitial and patchy airspace opacities throughout both lungs seen in c onjunction with cardiomegaly and prominence of the central pulmonary vasculature suggestive of fluid overload. A superimposed infectious process is not entirely excluded. No evidence of pneumothorax or pleural effusion. Mediastinum: Cardiomegaly. Sternotomy wires intact. Bones and chest wall: No suspicious bony lesions. Overlying soft tissues appear unremarkable. IMPRESSION: Cardiomegaly with associated prominence of the central pulmonary vasculature and diffuse interstitial and airspace opacities throughout both lungs likely related to fluid overload. A superimposed infect ious process is not entirely excluded. Reviewed by: Levy Rodriges MD on 04/20/2024 2:59 PM PDT Approved by: Levy Rodriges MD on 04/20/2024 2:59 PM PDT Station ID: [id number]
[2024-04-20 15:10] LABS: ALBUMIN 3.1 g/dL (3.2-5.5); ALBUMIN/GLOBULIN RATIO 0.8 (1.0-2.2); BILIRUBIN,TOTAL 1.2 mg/dL (0.2-1.0); CALCIUM 8.8 mg/dL (8.5-10.3); CREATININE 0.8 mg/dL (0.6-1.3); POTASSIUM 4.1 mmol/L (3.5-4.5); TOTAL PROTEIN 6.8 g/dL (6.4-8.9)
--- NOTE | 2024-04-20 15:40 | CT Report ---
PROCEDURE: CT Cervical Spine WO INDICATIONS: head/face inj TECHNIQUE: Noncontrast 3 mm thick sections acquired from the skull base to the T4 level. Sagittal and coronal r eformats were then constructed. For radiation dose reduction, the following was used: automated exp osure control, adjustment of mA and/or kV according to patient size. COMPARISON: None. FINDINGS: Image quality: Excellent. Bones: No fractures or dislocations. Visualized superior ribs are intact. Multilevel degenerative changes are present. Soft tissues: Prevertebral soft tissues are normal in thickness. No paravertebral hematomas. No ap ical pneumothoraces. IMPRESSION: Degenerative changes without visualized fracture. Reviewed by: Rochelle Wellington MD on 04/20/2024 3:39 PM PDT Approved by: Rochelle Wellington MD on 04/20/2024 3:39 PM PDT Station ID: [id number]
--- NOTE | 2024-04-20 15:41 | CT Report ---
PROCEDURE: CT Head WO INDICATIONS: head/face inj TECHNIQUE: Noncontrast 4.5 mm thick angled axial sections acquired from the foramen magnum to the vertex. For r adiation dose reduction, the following was used: automated exposure control, adjustment of mA and/or kV according to patient size. COMPARISON: None. FINDINGS: Image quality: Excellent. The ventricular system and cortical sulci demonstrate atrophy, consistent for patient's stated age. There are areas of hypodensity in the periventricular and subcortical white matter. There is no acut e intra or extra-axial fluid collection. No acute hemorrhage, mass lesion or midline shift. Brainst em is unremarkable. Low-attenuation in the left frontal lobe is present consistent with prior infarc tion. Globes are symmetrical. Sinuses are aerated. Osseous structures are intact. Right frontal scalp hemat jamey. IMPRESSION: 1. No acute intracranial process. Right frontal scalp hematoma. 2. Moderate atrophy and chronic microvascular ischemic changes. Reviewed by: Rochelle Wellington MD on 04/20/2024 3:40 PM PDT Approved by: Rochelle Wellington MD on 04/20/2024 3:40 PM PDT Station ID: [id number]
--- NOTE | 2024-04-20 15:43 | CT Report ---
PROCEDURE: CT Maxillofacial WO INDICATIONS: facial inj TECHNIQUE: Noncontrast 1.5 mm thick axial images acquired from the mandible through the frontal sinuses, with co anabel and sagittal reformatting. For radiation dose reduction, the following was used: automated ex posure control, adjustment of mA and/or kV according to patient size. COMPARISON: None. FINDINGS: Image quality: Excellent. Bones and teeth: Orbital mooney are intact. Sinus mooney show no fracture or deformity. Nasal bones and septum are intact. Visualized portions of the mandible demonstrate no fractures or subluxation. Zygomatic arches are intact. Pterygoid plates are intact. Visualized portions of the skull base an d auditory canals are intact. Sinuses: Paranasal sinuses are aerated, without fluid levels, mucosal thickening, or mucoceles. Mas toid air cells are aerated. Soft tissues: Right frontal scalp hematoma. No enlarged lymph nodes. No soft tissue lacerations or d ebris. Vascular: Visualized vascular structures appear normal in the absence of contrast. Bony vascular fo ramina and canals are intact. IMPRESSION: No visualized fracture. Right frontal scalp hematoma. Reviewed by: Rochelle Wellington MD on 04/20/2024 3:42 PM PDT Approved by: Rochelle Wellington MD on 04/20/2024 3:42 PM PDT Station ID: [id number]
[2024-04-20 16:26] LABS: B. PARAPERTUSSIS- RESP PCR PAN NOT DETECTED; B. PERTUSSIS- RESP PCR PANEL NOT DETECTED; C. PNEUMONIAE- RESP PCR PANEL NOT DETECTED; CORONAVIRUS 229E-RESP PCR NOT DETECTED; CORONAVIRUS HKU1-RESP PCR NOT DETECTED; CORONAVIRUS NL63-RESP PCR NOT DETECTED; CORONAVIRUS OC43-RESP PCR NOT DETECTED; HUMAN METAPNEUMOVIRUS NOT DETECTED; INFLUENZA A- RESP PCR PANEL NOT DETECTED; INFLUENZA B - RESP PCR PANEL NOT DETECTED; M. PNEUMONIAE- RESP PCR PANEL NOT DETECTED; PARAINFLUENZA VIRUS 1 NOT DETECTED; PARAINFLUENZA VIRUS 2 NOT DETECTED; PARAINFLUENZA VIRUS 3 NOT DETECTED; PARAINFLUENZA VIRUS 4 NOT DETECTED; RHINOVIRUS/ENTEROVIRUS NOT DETECTED; RSV- RESP PCR PANEL NOT DETECTED; SARS-CoV-2 -RESP PCR PANEL NOT DETECTED
[2024-04-20] MEDS: FUROSEMIDE 40 MG/4 ML VIAL IVP STA (16:32)
[2024-04-20 16:55] LABS: BILIRUBIN,URINE NEGATIVE (NEGATIVE); GLUCOSE, URINE (UA) NEGATIVE (NEGATIVE); KETONES,URINE (UA) NEGATIVE (NEGATIVE); LEUKOCYTE ESTERASE, URINE NEGATIVE (NEGATIVE); NITRITE,URINE NEGATIVE (NEGATIVE); OCCULT BLOOD,URINE MODERATE (NEGATIVE); PH,URINE 6.5 PH (5.0-7.5); PROTEIN,URINE 30 mg/dL (NEGATIVE); UROBILINOGEN,URINE 2 E.U./dL (NORMAL)
[2024-04-20 16:56] LABS: CLARITY,URINE CLEAR (CLEAR)
[2024-04-20 17:03] LABS: BACTERIA,URINE Rare /HPF (None Seen); EPITHELIAL CELLS,UR FEW Transitional /HPF (<= Few); RBC,URINE TNTC /HPF (0-5); SQUAMOUS EPITHELIAL CELL,UR RARE Squamous (<= Few); WBC,URINE 0-3 /HPF (0-3)
--- NOTE | 2024-04-20 17:16 | HISTORY & PHYSICAL EXAMINATION ---
Chief Complaint Chief Complaint Chief Complaint: Recurrent falls, Weakness History of Present Illness Admitted From Admitted From:: Home History Obtained From History obtained from: Patient, who is a poor historian History of Present Illness HPI Comment/Other: This is an 82-year-old gentleman with a past medical history of atrial fibrillation, not on anticoagulation due to recurrent falls and BPH who presented to the ER today after a ground-level fall at home.Patient states he was walking and all of a sudden his legs gave out and he fell. Says That falls have been happening 4-5 times in the last few weeks. Patient denies dizziness, nausea or headache.Patient denies any dizziness when he gets up from sitting or laying position. Today's ground-level fall resulted in a right-sided scrape and bruises of his face. Patient is somewhat confused. CT head was negative for any acute pathological Processes, No facial bone fracture was seen Chest x-ray indicates cardiomegaly with Signs of acute volume overload.On labs patient's BNP is highly elevated at 1800. Sodium was 127 on admission. Patient states he is always weak and tired. Patient is full code Meds/Allgy Home Medications Ambulatory Orders Medication Instructions Recorded Confirmed hydrocodone 5 mg-acetaminophen 325 1 - 2 tab PO Q6H PRN Pain #15 tabs 03/28/24 04/20/24 mg tablet ipratropium bromide 21 mcg (0.03 1 spray NS BID 03/28/24 04/20/24 %) nasal spray tamsulosin 0.4 mg capsule 0.4 mg PO DAILY #14 caps 03/28/24 04/20/24 hydrocodone 5 mg-acetaminophen 325 1 tab PO Q6HR #12 tabs 04/02/24 04/20/24 mg tablet Allergies Allergies Allergy/AdvReac Type Severity Reaction Status Date / Time latex Allergy Rash Verified 04/20/24 14:35 Sulfa (Sulfonamide Allergy Unknown Verified 04/20/24 14:35 Antibiotics) [facility] Social History Social History Smoking Status: Never smoker Do you dip or chew tobacco?: No Relationship: Do you feel safe in your home environment?: Yes Suffered physical, verbal, emotional, or financial abuse?: No History of Abuse: No Frequency: Daily Number of Amount/day: 1 POLST Patient has POLST: No Review of Systems Status of ROS: 10 or more systems reviewed and unremarkable except as noted in history and below Prior Level of Functionality: Independent Exam Constitutional normal general appearance and no apparent distress HENMT normocephalic and external ears normal Numerous abrasions and scrapes on the face. Poor dentition but nothing looks acute there. He is tender over the bridge of the nose. 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 Patient has no associated symptoms of dizziness Or shortness of breath.. Plan: PT/OT evaluation, Consider arterial vascular study after PT evaluation (2) Abrasion of face: Plan: Due to recurrent falls. No facial fractures. Plan: Nursing wound care (3) Acute hyponatremia: Plan: Likely hypervolemic hyponatremia. Plan: Start Lasix, monitor urine output, obtain TSH (4) CHF (congestive heart failure): Plan: New onset of CHF, Cardiomegaly on chest x-ray with Signs of volume overload Plan: Lasix, follow echo, Monitor urine output (5) Atrial fibrillation: Plan: This is to be chronic, atrial fibrillation with rate controlled. Patient not on any anticoagulation due to recurrent falls. Continue to monitor (6) BPH (benign prostatic hyperplasia): Plan: Continue patient's Flomax (7) Weakness: Plan: This seems to be a chronic occurrence. Etiology unclear at this time, follow PT OT recommendation, vascular study, follow TSH. (8) Hypertension, essential: Plan: On admission patient's systolic blood pressure was in the 150s. Start patient on losartan. Lab Results Lab results reviewed: Yes 04/20/24 14:49 04/20/24 14:49 Diagnostic Imaging Results Diagnostic Imaging Results: positive Prelim report reviewed and Final report reviewed EKG Results EKG Interpreted Independently: Yes
[2024-04-20] MEDS ORDERED: IBUPROFEN 400 MG TABLET PO PRN (17:58)
[2024-04-20] MEDS: hydrALAZINE INJ 20 MG/ML VIAL IVP ONE (20:57)
[2024-04-20] MEDS: HEPARIN 5,000 UNIT/ML VIAL SUBQ SCH (21:02)
[2024-04-20] MEDS: [UNRECOGNIZED DRUG - REMARK] NAS SCH (22:27)
[2024-04-21] MEDS: oxyCODONE 5 MG TABLET PO PRN (00:27)
[2024-04-21] MEDS: SODIUM CHLORIDE FLUSH 0.9% 10 ML SYRINGE IVP SCH (00:27)
[2024-04-21 05:44] LABS: BASOPHILS % (AUTO) 0.3 %; EOSINOPHILS % (AUTO) 0.3 %; HCT - HEMATOCRIT 29.7 % (42.0-52.0); HGB - HEMOGLOBIN 9.5 g/dL (14.0-18.0); LYMPHOCYTES # (AUTO) 1.2 10^3/uL (1.5-3.5); LYMPHOCYTES % (AUTO) 15.5 %; MEAN CORPUSCULAR HEMOGLOBIN 27.8 pg (27.0-31.0); MEAN CORPUSCULAR VOLUME 86.8 fL (80.0-94.0); MEAN PLATELET VOLUME 9.2 fL (7.4-11.4); MONOCYTES # (AUTO) 0.4 10^3/uL (0.0-1.0); MONOCYTES % (AUTO) 5.4 %; NEUTROPHILS # (AUTO) 5.8 10^3/uL (1.5-6.6); NEUTROPHILS % (AUTO) 78.1 %; PLT - PLATELET COUNT 175 10^3/uL (130-450); RED BLOOD COUNT 3.42 10^6/uL (4.70-6.10); WHITE BLOOD COUNT 7.4 x10^3/uL (4.8-10.8)
[2024-04-21 05:58] LABS: CALCIUM 8.5 mg/dL (8.5-10.3); CREATININE 0.8 mg/dL (0.6-1.3); POTASSIUM 3.4 mmol/L (3.5-4.5)
[2024-04-21 06:29] LABS: THYROID STIMULATING HORMONE 1.61 uIU/mL (0.34-5.60)
[2024-04-21] MEDS: FUROSEMIDE 40 MG/4 ML VIAL IVP SCH (06:40)
[2024-04-21] MEDS ORDERED: cefTRIAXone 1 GM VIAL ONE (08:22)
[2024-04-21] MEDS: cefTRIAXone 1 GM in SODIUM CHLORIDE 0.9% MINIBAG 100 ML IV SCH ×2 (08:38→10:18)
[2024-04-21] MEDS: LOSARTAN 50 MG TABLET PO SCH (08:41)
[2024-04-21] MEDS: TAMSULOSIN 0.4 MG CAPSULE PO SCH (08:41)
--- NOTE | 2024-04-21 08:59 | PROVIDER PROGRESS NOTE ---
Subjective Prog Note Date Prog Note Date: 04/21/24 Prog Note Time: 08:43 Subjective Subjective: This is an 82-year-old gentleman with a past medical history of atrial fibrillation, not on anticoagulation due to recurrent falls and BPH who presented to the ER today after a ground-level fall at home.Patient states he was walking and all of a sudden his legs gave out and he fell. Says That falls have been happening 4-5 times in the last few weeks. Patient denies dizziness, nausea or headache.Patient denies any dizziness when he gets up from sitting or laying position. Today's ground-level fall resulted in a right-sided scrape and bruises of his face. Patient is somewhat confused. CT head was negative for any acute pathological Processes, No facial bone fracture was seen Chest x-ray indicates cardiomegaly with Signs of acute volume overload.On labs patient's BNP is highly elevated at 1800. Sodium was 127 on admission. Patient states he is always weak and tired. 04/21/2024: Patient complains of back pain due to hard mattress, patient has no other complaints. He is not hungry he did not eat his breakfast Overnight blood cultures resulted to be positive for cryptococcus. 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 Current Medications Current Medications Current Medications: Current Medications Generic Name Dose Route Start Last Admin Trade Name Freq PRN Reason Stop Dose Admin Furosemide 40 mg 04/21/24 06:00 04/21/24 06:40 Furosemide 40 Mg/4 Ml Vial IVP 40 mg BIDDIURETIC [facility] Administration Heparin Sodium (Porcine) 5,000 unit 04/20/24 21:00 04/20/24 21:02 Heparin 5,000 Unit/Ml Vial SUBQ 5,000 unit BID [facility] Administration Ceftriaxone Sodium 1 gm/ 100 mls @ 200 mls/hr 04/21/24 09:00 Sodium Chloride IV DAILY [facility] Ibuprofen 400 mg 04/20/24 17:58 Ibuprofen 400 Mg Tablet PO Q4HR PRN Pain 1 to 4 Losartan Potassium 50 mg 04/21/24 09:00 Losartan 50 Mg Tablet PO DAILY [facility] Oxycodone HCl 5 mg 04/20/24 17:58 04/21/24 00:27 Oxycodone 5 Mg Tablet PO 5 mg Q4HR PRN Administration Pain 5 to 7 Patient Own Med ( 1 each 04/20/24 21:00 04/20/24 22:27 Ipratropium [place] ANAT Not Given 30 Ml [place],Non- BID [facility] Aerosol) Sodium Chloride 10 ml 04/21/24 01:00 04/21/24 06:40 Sodium Chloride Flush 0.9% 10 Ml Syringe IVP 10 ml Q8HR [facility] Administration Tamsulosin HCl 0.4 mg 04/21/24 09:00 Tamsulosin 0.4 Mg Capsule PO DAILY [facility] Objective Vital Signs/Intake & Output Reviewed Vital Signs: Yes Vital Signs: Vital Signs x48h Temp Pulse Resp BP Pulse Ox 04/21/24 07:37 36.9 C 82 16 140/78 H 95 04/21/24 05:19 36.9 C 85 18 136/79 H 95 Intake & Output: Intake & Output 04/19/24 04/20/24 04/21/24 04/22/24 05:59 05:59 05:59 05:59 Intake Total 650 / 650 220 / 220 Output Total 450 / 450 Balance 650 / 650 -230 / -230 Weight (kg) 56.699 kg Objective General Appearance: positive No acute distress, Alert, Lethargic and Other (Abrasion of right sided face due to recent fall. Wound seems to be noninfected, dry) Eyes Bilateral: positive Normal inspection, PERRL, EOMI and Other (Abrasion over right eye) ENT: positive ENT inspection nml Neck: positive Nml inspection and Trachea midline Respiratory: positive Chest non-tender and Breath sounds nml Cardiovascular: positive Regular rate & rhythm, No murmur and No gallop Abdomen: positive Non-tender, No organomegaly and Nml bowel sounds Skin: positive Color nml, No rash and Warm Extremities: positive Non-tender, Full ROM and Nml appearance Neurologic/Psychiatric: positive Oriented x3 and CN's nml (2-12) Lab Results 04/21/24 05:18 04/21/24 05:18 Other Labs: Lab Results x24hrs 04/21/24 04/21/24 04/20/24 Range/Units 05:18 05:16 16:48 WBC 7.4 (4.8-10.8) x10^3/uL RBC 3.42 L (4.70-6.10) 10^6/uL Hgb 9.5 L (14.0-18.0) g/dL Hct 29.7 L (42.0-52.0) % MCV 86.8 (80.0-94.0) fL MCH 27.8 (27.0-31.0) pg MCHC 32.0 (32.0-36.0) g/dL RDW 16.0 H (12.0-15.0) % Plt Count 175 (130-450) 10^3/uL MPV 9.2 (7.4-11.4) fL Neut # (Auto) 5.8 (1.5-6.6) 10^3/uL Lymph # (Auto) 1.2 L (1.5-3.5) 10^3/uL [place] # (Auto) 0.4 (0.0-1.0) 10^3/uL Eos # (Auto) 0.0 (0.0-0.7) 10^3/uL Baso # (Auto) 0.0 (0.0-0.1) 10^3/uL Absolute Nucleated RBC 0.00 x10^3/uL Nucleated RBC % 0.0 /100WBC Sodium 129 L (135-145) mmol/L Potassium 3.4 L (3.5-4.5) mmol/L Chloride 94 L (101-111) mmol/L Carbon Dioxide 27 (21-32) mmol/L Anion Gap 8.0 (6-13) BUN 16 (6-20) mg/dL Creatinine 0.8 (0.6-1.3) mg/dL Estimated GFR (MDRD) 92 (>89) Glucose 114 H (74-104) mg/dL Lactic Acid (0.5-2.2) mmol/L Calcium 8.5 (8.5-10.3) mg/dL Total Bilirubin (0.2-1.0) mg/dL AST (10-42) IU/L ALT (10-60) IU/L Alkaline Phosphatase (42-121) IU/L B-Natriuretic Peptide (5-100) pg/mL Total Protein (6.4-8.9) g/dL Albumin (3.2-5.5) g/dL Globulin (2.1-4.2) g/dL Albumin/Globulin Ratio (1.0-2.2) TSH 1.61 (0.34-5.60) uIU/mL Urine Color DARK YELLOW Urine Clarity CLEAR (CLEAR) Urine pH 6.5 (5.0-7.5) PH Ur Specific [place] 1.020 (1.002-1.030) Urine Protein 30 H (NEGATIVE) mg/dL Urine Glucose (UA) NEGATIVE (NEGATIVE) mg/dL Urine Ketones NEGATIVE (NEGATIVE) mg/dL Urine Occult Blood MODERATE H (NEGATIVE) Urine Nitrite NEGATIVE (NEGATIVE) Urine Bilirubin NEGATIVE (NEGATIVE) Urine Urobilinogen 2 H (NORMAL) E.U./dL Ur Leukocyte Esterase NEGATIVE (NEGATIVE) Urine RBC TNTC H (0-5) /HPF Urine WBC 0-3 (0-3) /HPF Ur Epithelial Cells FEW Transitional (<= Few) /HPF Ur Squamous Epith Cells RARE Squamous (<= Few) Urine Bacteria Rare (None Seen) /HPF Urine Culture Comments NOT INDICATED Nasal Adenovirus (PCR) Nasal B. parapertussis DNA (PCR) Nasal Coronavir 229E PCR Nasal Coronavir HKU1 PCR Nasal Coronavir NL63 PCR Nasal Coronavir OC43 PCR Nasal Enterovir/Rhinovir PCR Nasal Influenza B PCR Nasal Influenza A PCR Nasal Parainfluen 1 PCR Nasal Parainfluen 2 PCR Nasal Parainfluen 3 PCR Nasal Parainfluen 4 PCR Nasal RSV (PCR) Nasal B.pertussis DNA PCR Nasal C.pneumoniae (PCR) Anat Human Metapneumo PCR Nasal M.pneumoniae (PCR) Nasal SARS-CoV-2 (PCR) Ethyl Alcohol mg/dL 04/20/24 04/20/24 04/20/24 Range/Units 15:38 15:28 14:49 WBC 8.1 (4.8-10.8) x10^3/uL RBC 3.61 L (4.70-6.10) 10^6/uL Hgb 9.9 L (14.0-18.0) g/dL Hct 31.5 L (42.0-52.0) % MCV 87.3 (80.0-94.0) fL MCH 27.4 (27.0-31.0) pg MCHC 31.4 L (32.0-36.0) g/dL RDW 15.9 H (12.0-15.0) % Plt Count 171 (130-450) 10^3/uL MPV 9.2 (7.4-11.4) fL Neut # (Auto) 6.9 H (1.5-6.6) 10^3/uL Lymph # (Auto) 0.8 L (1.5-3.5) 10^3/uL [place] # (Auto) 0.4 (0.0-1.0) 10^3/uL Eos # (Auto) 0.0 (0.0-0.7) 10^3/uL Baso # (Auto) 0.0 (0.0-0.1) 10^3/uL Absolute Nucleated RBC 0.00 x10^3/uL Nucleated RBC % 0.0 /100WBC Sodium 127 L (135-145) mmol/L Potassium 4.1 (3.5-4.5) mmol/L Chloride 95 L (101-111) mmol/L Carbon Dioxide 26 (21-32) mmol/L Anion Gap 6.0 (6-13) BUN 18 (6-20) mg/dL Creatinine 0.8 (0.6-1.3) mg/dL Estimated GFR (MDRD) 92 (>89) Glucose 133 H (74-104) mg/dL Lactic Acid 1.1 (0.5-2.2) mmol/L Calcium 8.8 (8.5-10.3) mg/dL Total Bilirubin 1.2 H (0.2-1.0) mg/dL AST 14 (10-42) IU/L ALT 12 (10-60) IU/L Alkaline Phosphatase 48 (42-121) IU/L B-Natriuretic Peptide (5-100) pg/mL Total Protein 6.8 (6.4-8.9) g/dL Albumin 3.1 L (3.2-5.5) g/dL Globulin 3.7 (2.1-4.2) g/dL Albumin/Globulin Ratio 0.8 L (1.0-2.2) TSH (0.34-5.60) uIU/mL Urine Color Urine Clarity (CLEAR) Urine pH (5.0-7.5) PH Ur Specific [place] (1.002-1.030) Urine Protein (NEGATIVE) mg/dL Urine Glucose (UA) (NEGATIVE) mg/dL Urine Ketones (NEGATIVE) mg/dL Urine Occult Blood (NEGATIVE) Urine Nitrite (NEGATIVE) Urine Bilirubin (NEGATIVE) Urine Urobilinogen (NORMAL) E.U./dL Ur Leukocyte Esterase (NEGATIVE) Urine RBC (0-5) /HPF Urine WBC (0-3) /HPF Ur Epithelial Cells (<= Few) /HPF Ur Squamous Epith Cells (<= Few) Urine Bacteria (None Seen) /HPF Urine Culture Comments Nasal Adenovirus (PCR) NOT DETECTED Nasal B. parapertussis DNA (PCR) NOT DETECTED Nasal Coronavir 229E PCR NOT DETECTED Nasal Coronavir HKU1 PCR NOT DETECTED Nasal Coronavir NL63 PCR NOT DETECTED Nasal Coronavir OC43 PCR NOT DETECTED Nasal Enterovir/Rhinovir PCR NOT DETECTED Nasal Influenza B PCR NOT DETECTED Nasal Influenza A PCR NOT DETECTED Nasal Parainfluen 1 PCR NOT DETECTED Nasal Parainfluen 2 PCR NOT DETECTED Nasal Parainfluen 3 PCR NOT DETECTED Nasal Parainfluen 4 PCR NOT DETECTED Nasal RSV (PCR) NOT DETECTED Nasal B.pertussis DNA PCR NOT DETECTED Nasal C.pneumoniae (PCR) NOT DETECTED Anat Human Metapneumo PCR NOT DETECTED Nasal M.pneumoniae (PCR) NOT DETECTED Nasal SARS-CoV-2 (PCR) NOT DETECTED Ethyl Alcohol < 10.0 mg/dL 04/20/24 Range/Units 14:47 WBC (4.8-10.8) x10^3/uL RBC (4.70-6.10) 10^6/uL Hgb (14.0-18.0) g/dL Hct (42.0-52.0) % MCV (80.0-94.0) fL MCH (27.0-31.0) pg MCHC (32.0-36.0) g/dL RDW (12.0-15.0) % Plt Count (130-450) 10^3/uL MPV (7.4-11.4) fL Neut # (Auto) (1.5-6.6) 10^3/uL Lymph # (Auto) (1.5-3.5) 10^3/uL [place] # (Auto) (0.0-1.0) 10^3/uL Eos # (Auto) (0.0-0.7) 10^3/uL Baso # (Auto) (0.0-0.1) 10^3/uL Absolute Nucleated RBC x10^3/uL Nucleated RBC % /100WBC Sodium (135-145) mmol/L Potassium (3.5-4.5) mmol/L Chloride (101-111) mmol/L Carbon Dioxide (21-32) mmol/L Anion Gap (6-13) BUN (6-20) mg/dL Creatinine (0.6-1.3) mg/dL Estimated GFR (MDRD) (>89) Glucose (74-104) mg/dL Lactic Acid (0.5-2.2) mmol/L Calcium (8.5-10.3) mg/dL Total Bilirubin (0.2-1.0) mg/dL AST (10-42) IU/L ALT (10-60) IU/L Alkaline Phosphatase (42-121) IU/L B-Natriuretic Peptide 1843 H (5-100) pg/mL Total Protein (6.4-8.9) g/dL Albumin (3.2-5.5) g/dL Globulin (2.1-4.2) g/dL Albumin/Globulin Ratio (1.0-2.2) TSH (0.34-5.60) uIU/mL Urine Color Urine Clarity (CLEAR) Urine pH (5.0-7.5) PH Ur Specific [place] (1.002-1.030) Urine Protein (NEGATIVE) mg/dL Urine Glucose (UA) (NEGATIVE) mg/dL Urine Ketones (NEGATIVE) mg/dL Urine Occult Blood (NEGATIVE) Urine Nitrite (NEGATIVE) Urine Bilirubin (NEGATIVE) Urine Urobilinogen (NORMAL) E.U./dL Ur Leukocyte Esterase (NEGATIVE) Urine RBC (0-5) /HPF Urine WBC (0-3) /HPF Ur Epithelial Cells (<= Few) /HPF Ur Squamous Epith Cells (<= Few) Urine Bacteria (None Seen) /HPF Urine Culture Comments Nasal Adenovirus (PCR) Nasal B. parapertussis DNA (PCR) Nasal Coronavir 229E PCR Nasal Coronavir HKU1 PCR Nasal Coronavir NL63 PCR Nasal Coronavir OC43 PCR Nasal Enterovir/Rhinovir PCR Nasal Influenza B PCR Nasal Influenza A PCR Nasal Parainfluen 1 PCR Nasal Parainfluen 2 PCR Nasal Parainfluen 3 PCR Nasal Parainfluen 4 PCR Nasal RSV (PCR) Nasal B.pertussis DNA PCR Nasal C.pneumoniae (PCR) Anat Human Metapneumo PCR Nasal M.pneumoniae (PCR) Nasal SARS-CoV-2 (PCR) Ethyl Alcohol mg/dL Diagnostic Imaging Diagnostic Imaging Results: positive Final report reviewed ABX Reporting Has patient been on IV antibiotics over the past 48 hours?: Yes Assessment/Plan Problem List (1) Falls frequently: Impression: Etiology most likely secondary to Physical Deconditioning and weakness. Patient has no associated symptoms of dizziness, Lightheadedness Or shortness of breath.. Plan: PT/OT evaluation, Consider arterial vascular study after PT evaluation (2) Abrasion of face: Impression: Due to recurrent falls. No facial fractures.Wounds appear clean and dry. Plan: Nursing wound care (3) Acute hyponatremia: Impression: Likely hypervolemic hyponatremia. Improved, Continue to monitor Plan: Continue Lasix, monitor urine output, TSH is within normal limits 1.61 (4) CHF (congestive heart failure): Impression: New onset of CHF, Cardiomegaly on chest x-ray with Signs of volume overload Plan: Lasix, follow echo, Monitor urine output Continue Losartan, consider adding beta-danika if A-fib does not resolve. (5) Atrial fibrillation: Impression: This is to be chronic, atrial fibrillation with rate controlled. Patient not on any anticoagulation due to recurrent falls. Continue to monitor (6) BPH (benign prostatic hyperplasia): Impression: Continue patient's Flomax (7) Weakness: Impression: This seems to be a chronic occurrence. Etiology unclear at this time, follow PT OT recommendation, vascular study. (8) Hypertension, essential: Impression: Patient started blood pressure has been in the upper 130s to low 140s. Patient was started on losartan. Will Continue to add second antihypertensive Based on echo report. (9) Bacteremia due to Gram-positive bacteria: Impression: Overnight blood cultures indicated strep to coccus positive blood cultures 2/2. Patient was started on Rocephin and azithromycin by julissa. Plan: DC azithromycin continue IV Rocephin, Repeat blood cultures in 2 to 3 days to document clearance of Bacteremia
[2024-04-21] MEDS ORDERED: AZITHROMYCIN INJ 500 MG in SODIUM CHLORIDE 0.9% 250 ML IV SCH (09:00)
[2024-04-21] MEDS: POTASSIUM CHLOR 10 MEQ/100 ML 10 MEQ/100 ML BAG IV ONE (10:19)
[2024-04-21] MEDS: SODIUM CHLORIDE 1 GM TABLET PO SCH (10:58)
--- NOTE | 2024-04-21 16:54 | PHARMACY PROGRESS NOTE ---
Best Possible Medication History Admit Date and Time: 04/21/24 1134 Processed by: Pharmacy Medications reviewed in ED?: No Medication History completed: Yes Patient Interview: Completed Secondary Source(s): Spouse/Significant other and Insurance records [place] Statement: As the person ultimately responsible for medication therapy, providers are able to order a medication from an existing home medication list in [facility] via the "Reconcile Routine" prior to Confirmation of that medication by patient support assistant. Such practice is discouraged except when the physician, in their clinical judgment, deems that a medical need exists for a medication without regard to previous use.
[2024-04-21] MEDS: MULTIVITAMIN W/MINERALS TABLET PO SCH (21:14)
[2024-04-22 05:39] LABS: BASOPHILS % (AUTO) 0.3 %; EOSINOPHILS # (AUTO) 0.1 10^3/uL (0.0-0.7); EOSINOPHILS % (AUTO) 0.8 %; HCT - HEMATOCRIT 29.7 % (42.0-52.0); HGB - HEMOGLOBIN 9.9 g/dL (14.0-18.0); LYMPHOCYTES # (AUTO) 1.4 10^3/uL (1.5-3.5); LYMPHOCYTES % (AUTO) 23.1 %; MEAN CORPUSCULAR HEMOGLOBIN 28.2 pg (27.0-31.0); MEAN CORPUSCULAR HGB CONC 33.3 g/dL (32.0-36.0); MEAN CORPUSCULAR VOLUME 84.6 fL (80.0-94.0); MEAN PLATELET VOLUME 9.5 fL (7.4-11.4); MONOCYTES # (AUTO) 0.5 10^3/uL (0.0-1.0); MONOCYTES % (AUTO) 7.7 %; NEUTROPHILS # (AUTO) 4.1 10^3/uL (1.5-6.6); NEUTROPHILS % (AUTO) 67.6 %; PLT - PLATELET COUNT 164 10^3/uL (130-450); RED BLOOD COUNT 3.51 10^6/uL (4.70-6.10); RED CELL DISTRIBUTION WIDTH 15.9 % (12.0-15.0); WHITE BLOOD COUNT 6.1 x10^3/uL (4.8-10.8)
[2024-04-22 06:00] LABS: CALCIUM 8.7 mg/dL (8.5-10.3); CREATININE 0.8 mg/dL (0.6-1.3); POTASSIUM 3.3 mmol/L (3.5-4.5)
[2024-04-22] MEDS: cefTRIAXone 2 GM in SODIUM CHLORIDE 0.9% MINIBAG 100 ML IV SCH (08:35)
[2024-04-22] MEDS: POTASSIUM CHLOR 10 MEQ/100 ML 10 MEQ/100 ML BAG IV SCH (08:38)
--- NOTE | 2024-04-22 09:26 | PROVIDER PROGRESS NOTE ---
Subjective Prog Note Date Prog Note Date: 04/22/24 Prog Note Time: 09:23 Subjective Subjective: This is an 82-year-old gentleman with a past medical history of atrial fibrillation, not on anticoagulation due to recurrent falls and BPH who presented to the ER today after a ground-level fall at home.Patient states he was walking and all of a sudden his legs gave out and he fell. Says That falls have been happening 4-5 times in the last few weeks. Patient denies dizziness, nausea or headache.Patient denies any dizziness when he gets up from sitting or laying position. Today's ground-level fall resulted in a right-sided scrape and bruises of his face. Patient is somewhat confused. CT head was negative for any acute pathological Processes, No facial bone fracture was seen Chest x-ray indicates cardiomegaly with Signs of acute volume overload.On labs patient's BNP is highly elevated at 1800. Sodium was 127 on admission. Patient states he is always weak and tired. 04/21/2024: Patient complains of back pain due to hard mattress, patient has no other complaints. He is not hungry he did not eat his breakfast Overnight blood cultures resulted to be positive for cryptococcus. He was started on Rocephin and azithromycin by julissa. 04/22/2024: Patient states that He feels somewhat weird but cannot describe what he means by that. He is definitely hard of hearing. Patient has no complaints. Current Medications Current Medications Current Medications: Current Medications Generic Name Dose Route Start Last Admin Trade Name Isakq PRN Reason Stop Dose Admin Furosemide 20 mg 04/22/24 07:36 Furosemide 40 Mg/4 Ml Vial IVP BIDDIURETIC [facility] Heparin Sodium (Porcine) 5,000 unit 04/20/24 21:00 04/22/24 08:32 Heparin 5,000 Unit/Ml Vial SUBQ 5,000 unit BID [facility] Administration Ceftriaxone Sodium 2 gm/ 100 mls @ 200 mls/hr 04/22/24 09:00 04/22/24 08:35 Sodium Chloride IV 200 mls/hr DAILY [facility] Administration Potassium Chloride 10 meq in 100 mls @ 100 mls/hr 04/22/24 08:00 04/22/24 08:38 Potassium Chloride IV 04/22/24 11:59 100 mls/hr Q1H [facility] Administration Ibuprofen 400 mg 04/20/24 17:58 Ibuprofen 400 Mg Tablet PO Q4HR PRN Pain 1 to 4 Losartan Potassium 50 mg 04/21/24 09:00 04/22/24 08:32 Losartan 50 Mg Tablet PO 50 mg DAILY [facility] Administration Multivitamins/Minerals 1 tab 04/21/24 17:00 04/22/24 08:32 Multivitamin W/Minerals Tablet PO 1 tab DAILYWM [facility] Administration Oxycodone HCl 5 mg 04/20/24 17:58 04/21/24 11:20 Oxycodone 5 Mg Tablet PO 5 mg Q4HR PRN Administration Pain 5 to 7 Patient Own Med ( 1 each 04/20/24 21:00 04/22/24 08:41 Ipratropium [place] ANAT Not Given 30 Ml [place],Non- BID [facility] Aerosol) Sodium Chloride 10 ml 04/21/24 01:00 04/22/24 06:38 Sodium Chloride Flush 0.9% 10 Ml Syringe IVP 10 ml Q8HR [facility] Administration Sodium Chloride 1 gm 04/21/24 10:00 04/22/24 08:32 Sodium Chloride 1 Gm Tablet PO 1 gm DAILY [facility] Administration Tamsulosin HCl 0.4 mg 04/21/24 09:00 04/22/24 08:32 Tamsulosin 0.4 Mg Capsule PO 0.4 mg DAILY [facility] Administration Objective Vital Signs/Intake & Output Reviewed Vital Signs: Yes Vital Signs: Vital Signs x48h BP 04/22/24 06:39 116/63 Intake & Output: Intake & Output 04/20/24 04/21/24 04/22/24 04/23/24 05:59 05:59 05:59 05:59 Intake Total 650 / 650 1413 / 1413 360 / 360 Output Total 450 / 450 300 / 300 Balance 650 / 650 963 / 963 60 / 60 Weight (kg) 56.699 kg Objective General Appearance: positive No acute distress, Alert, Lethargic and Other (Abrasion of right sided face due to recent fall. Wound seems to be noninfected, dry. Has episodes of confusion) Eyes Bilateral: positive Normal inspection, PERRL, EOMI and Other (Abrasion over right eye) ENT: positive ENT inspection nml Neck: positive Nml inspection and Trachea midline Respiratory: positive Chest non-tender and Breath sounds nml Cardiovascular: positive Regular rate & rhythm, No murmur and No gallop Abdomen: positive Non-tender, No organomegaly and Nml bowel sounds Skin: positive Color nml, No rash and Warm Extremities: positive Non-tender, Full ROM and Nml appearance Neurologic/Psychiatric: positive CN's nml (2-12) and Other (Confusion at times) Lab Results 04/22/24 05:21 04/22/24 05:21 Other Labs: Lab Results x24hrs 04/22/24 Range/Units 05:21 WBC 6.1 (4.8-10.8) x10^3/uL RBC 3.51 L (4.70-6.10) 10^6/uL Hgb 9.9 L (14.0-18.0) g/dL Hct 29.7 L (42.0-52.0) % MCV 84.6 (80.0-94.0) fL MCH 28.2 (27.0-31.0) pg MCHC 33.3 (32.0-36.0) g/dL RDW 15.9 H (12.0-15.0) % Plt Count 164 (130-450) 10^3/uL MPV 9.5 (7.4-11.4) fL Neut # (Auto) 4.1 (1.5-6.6) 10^3/uL Lymph # (Auto) 1.4 L (1.5-3.5) 10^3/uL [place] # (Auto) 0.5 (0.0-1.0) 10^3/uL Eos # (Auto) 0.1 (0.0-0.7) 10^3/uL Baso # (Auto) 0.0 (0.0-0.1) 10^3/uL Absolute Nucleated RBC 0.00 x10^3/uL Nucleated RBC % 0.0 /100WBC Sodium 129 L (135-145) mmol/L Potassium 3.3 L (3.5-4.5) mmol/L Chloride 95 L (101-111) mmol/L Carbon Dioxide 27 (21-32) mmol/L Anion Gap 7.0 (6-13) BUN 25 H (6-20) mg/dL Creatinine 0.8 (0.6-1.3) mg/dL Estimated GFR (MDRD) 92 (>89) Glucose 122 H (74-104) mg/dL Calcium 8.7 (8.5-10.3) mg/dL Diagnostic Imaging Diagnostic Imaging Results: positive Final report reviewed ABX Reporting Has patient been on IV antibiotics over the past 48 hours?: Yes Assessment/Plan Problem List (1) Falls frequently: Impression: Etiology most likely secondary to Physical Deconditioning and weakness. Patient has no associated symptoms of dizziness, Lightheadedness Or shortness of breath.. PT evaluation recommends SNF rehab Before returning home. (2) Abrasion of face: Impression: Due to recurrent falls. No facial fractures.Wounds appear clean and dry. Plan: Nursing wound care (3) Acute hyponatremia: Impression: Likely hypervolemic hyponatremia. Improved, Continue to monitor Plan: Decrease Lasix from 40IV to 20IV. Unable to obtain accurate urine output due to incontinence. TSH is within normal limits 1.61 And the patient on salt tablets, monitor for sodium. (4) CHF (congestive heart failure): Impression: New onset of CHF, Cardiomegaly on chest x-ray with Signs of volume overload Plan: Lasix, follow echo, Unable to get an accurate urine output due to incontinence. Awaiting echo read. Continue Losartan, consider adding beta-danika if A-fib does not resolve. (5) Atrial fibrillation: Impression: This is to be chronic, atrial fibrillation with rate controlled. Patient not on any anticoagulation due to recurrent falls. Continue to monitor (6) BPH (benign prostatic hyperplasia): Impression: Continue patient's Flomax (7) Weakness: Impression: This seems to be a chronic occurrence. Etiology unclear at this time, follow PT OT recommendation, vascular study. (8) Hypertension, essential: Impression: Patient started blood pressure has been in the upper 130s to low 140s. Patient was started on losartan. Will Continue to add second antihypertensive If hypertension continues to be a problem. (9) Bacteremia due to Gram-positive bacteria: Impression: Overnight blood cultures indicated strep to coccus positive blood cultures 2/2. Patient was started on Rocephin and azithromycin by ophthalmologist retina specialist. Plan: DC azithromycin continue IV Rocephin, Repeat blood cultures in 2 days to document clearance of Bacteremia (10) Hard of hearing: Impression: Most likely patient's Hard of hearing is contributing to his Decreased ADL activities and Sociability ,Social isolation, depression and dementia and overall deconditioning. Advised nurse to make sure patient has hearing aid in.
[2024-04-22] MEDS: POTASSIUM CHLORIDE 10 MEQ CAPSULE PO SCH (10:57)
[2024-04-22] MEDS: FUROSEMIDE 40 MG/4 ML VIAL IVP SCH (14:27)
[2024-04-23 05:56] LABS: BASOPHILS % (AUTO) 0.3 %; EOSINOPHILS # (AUTO) 0.2 10^3/uL (0.0-0.7); EOSINOPHILS % (AUTO) 2.7 %; HCT - HEMATOCRIT 31.1 % (42.0-52.0); HGB - HEMOGLOBIN 9.8 g/dL (14.0-18.0); LYMPHOCYTES # (AUTO) 1.6 10^3/uL (1.5-3.5); LYMPHOCYTES % (AUTO) 24.6 %; MEAN CORPUSCULAR HEMOGLOBIN 27.4 pg (27.0-31.0); MEAN CORPUSCULAR HGB CONC 31.5 g/dL (32.0-36.0); MEAN CORPUSCULAR VOLUME 86.9 fL (80.0-94.0); MEAN PLATELET VOLUME 9.6 fL (7.4-11.4); MONOCYTES # (AUTO) 0.5 10^3/uL (0.0-1.0); MONOCYTES % (AUTO) 7.7 %; NEUTROPHILS # (AUTO) 4.2 10^3/uL (1.5-6.6); NEUTROPHILS % (AUTO) 64.1 %; PLT - PLATELET COUNT 177 10^3/uL (130-450); RED BLOOD COUNT 3.58 10^6/uL (4.70-6.10); WHITE BLOOD COUNT 6.6 x10^3/uL (4.8-10.8)
[2024-04-23 06:11] LABS: CALCIUM 8.8 mg/dL (8.5-10.3); CREATININE 0.8 mg/dL (0.6-1.3); POTASSIUM 4.3 mmol/L (3.5-4.5)
[2024-04-23] MEDS: FUROSEMIDE 20 MG TABLET PO SCH (08:36)
--- NOTE | 2024-04-23 10:36 | PROVIDER PROGRESS NOTE ---
Subjective Prog Note Date Prog Note Date: 04/23/24 Prog Note Time: 10:24 Subjective Subjective: This is an 82-year-old gentleman with a past medical history of atrial fibrillation, not on anticoagulation due to recurrent falls and BPH who presented to the ER today after a ground-level fall at home.Patient states he was walking and all of a sudden his legs gave out and he fell. Says That falls have been happening 4-5 times in the last few weeks. Patient denies dizziness, nausea or headache.Patient denies any dizziness when he gets up from sitting or laying position. Today's ground-level fall resulted in a right-sided scrape and bruises of his face. Patient is somewhat confused. CT head was negative for any acute pathological Processes, No facial bone fracture was seen Chest x-ray indicates cardiomegaly with Signs of acute volume overload.On labs patient's BNP is highly elevated at 1800. Sodium was 127 on admission. Patient states he is always weak and tired. 04/21/2024: Patient complains of back pain due to hard mattress, patient has no other complaints. He is not hungry he did not eat his breakfast Overnight blood cultures resulted to be positive for cryptococcus. He was started on Rocephin and azithromycin by julissa. 04/22/2024: Patient states that He feels somewhat weird but cannot describe what he means by that. He is definitely hard of hearing. Patient has no complaints. 04/23/2024: Patient has no complaints. He is feeling well. Wonders where he is going for rehab. Current Medications Current Medications Current Medications: Current Medications Generic Name Dose Route Start Last Admin Trade Name Tere PRN Reason Stop Dose Admin Furosemide 20 mg 04/23/24 09:00 04/23/24 08:36 Furosemide 20 Mg Tablet PO 20 mg DAILY [facility] Administration Heparin Sodium (Porcine) 5,000 unit 04/20/24 21:00 04/23/24 08:36 Heparin 5,000 Unit/Ml Vial SUBQ 5,000 unit BID [facility] Administration Ceftriaxone Sodium 2 gm/ 100 mls @ 200 mls/hr 04/22/24 09:00 04/23/24 08:36 Sodium Chloride IV 200 mls/hr DAILY [facility] Administration Ibuprofen 400 mg 04/20/24 17:58 Ibuprofen 400 Mg Tablet PO Q4HR PRN Pain 1 to 4 Losartan Potassium 50 mg 04/21/24 09:00 04/23/24 08:35 Losartan 50 Mg Tablet PO 50 mg DAILY [facility] Administration Multivitamins/Minerals 1 tab 04/21/24 17:00 04/23/24 08:35 Multivitamin W/Minerals Tablet PO 1 tab DAILYWM [facility] Administration Oxycodone HCl 5 mg 04/20/24 17:58 04/22/24 22:51 Oxycodone 5 Mg Tablet PO 5 mg Q4HR PRN Administration Pain 5 to 7 Patient Own Med ( 1 each 04/20/24 21:00 04/23/24 08:38 Ipratropium [place] ANAT Not Given 30 Ml [place],Non- BID [facility] Aerosol) Potassium Chloride 40 meq 04/22/24 10:00 04/23/24 08:35 Potassium Chloride 10 Meq Capsule PO 40 meq DAILYWM [facility] Administration Sodium Chloride 10 ml 04/21/24 01:00 04/23/24 05:39 Sodium Chloride Flush 0.9% 10 Ml Syringe IVP 10 ml Q8HR [facility] Administration Sodium Chloride 1 gm 04/21/24 10:00 04/23/24 08:35 Sodium Chloride 1 Gm Tablet PO 1 gm DAILY [facility] Administration Tamsulosin HCl 0.4 mg 04/21/24 09:00 04/23/24 08:35 Tamsulosin 0.4 Mg Capsule PO 0.4 mg DAILY [facility] Administration Objective Vital Signs/Intake & Output Reviewed Vital Signs: Yes Vital Signs: Vital Signs x48h BP 04/22/24 06:39 116/63 Intake & Output: Intake & Output 04/21/24 04/22/24 04/23/24 04/24/24 05:59 05:59 05:59 05:59 Intake Total 650 / 650 1413 / 1413 1040 / 1040 100 / 100 Output Total 450 / 450 475 / 475 Balance 650 / 650 963 / 963 565 / 565 100 / 100 Weight (kg) 56.699 kg Objective General Appearance: positive No acute distress, Alert, Lethargic and Other (Abrasion of right sided face due to recent fall. Wound seems to be noninfected, dry. Has episodes of confusion) Eyes Bilateral: positive Normal inspection, PERRL, EOMI and Other (Abrasion over right eye) ENT: positive ENT inspection nml Neck: positive Nml inspection and Trachea midline Respiratory: positive Chest non-tender and Breath sounds nml Cardiovascular: positive Regular rate & rhythm, No murmur and No gallop Abdomen: positive Non-tender, No organomegaly and Nml bowel sounds Skin: positive Color nml, No rash and Warm Extremities: positive Non-tender, Full ROM and Nml appearance Neurologic/Psychiatric: positive CN's nml (2-12) and Other (Confusion at times) Lab Results 04/23/24 05:35 04/23/24 05:35 Other Labs: Lab Results x24hrs 04/23/24 Range/Units 05:35 WBC 6.6 (4.8-10.8) x10^3/uL RBC 3.58 L (4.70-6.10) 10^6/uL Hgb 9.8 L (14.0-18.0) g/dL Hct 31.1 L (42.0-52.0) % MCV 86.9 (80.0-94.0) fL MCH 27.4 (27.0-31.0) pg MCHC 31.5 L (32.0-36.0) g/dL RDW 16.0 H (12.0-15.0) % Plt Count 177 (130-450) 10^3/uL MPV 9.6 (7.4-11.4) fL Neut # (Auto) 4.2 (1.5-6.6) 10^3/uL Lymph # (Auto) 1.6 (1.5-3.5) 10^3/uL [place] # (Auto) 0.5 (0.0-1.0) 10^3/uL Eos # (Auto) 0.2 (0.0-0.7) 10^3/uL Baso # (Auto) 0.0 (0.0-0.1) 10^3/uL Absolute Nucleated RBC 0.00 x10^3/uL Nucleated RBC % 0.0 /100WBC Sodium 130 L (135-145) mmol/L Potassium 4.3 (3.5-4.5) mmol/L Chloride 97 L (101-111) mmol/L Carbon Dioxide 27 (21-32) mmol/L Anion Gap 6.0 (6-13) BUN 27 H (6-20) mg/dL Creatinine 0.8 (0.6-1.3) mg/dL Estimated GFR (MDRD) 92 (>89) Glucose 111 H (74-104) mg/dL Calcium 8.8 (8.5-10.3) mg/dL Diagnostic Imaging Diagnostic Imaging Results: positive Final report reviewed ABX Reporting Has patient been on IV antibiotics over the past 48 hours?: Yes Assessment/Plan Problem List (1) Falls frequently: Impression: Etiology most likely secondary to Physical Deconditioning and weakness. Patient has no associated symptoms of dizziness, Lightheadedness Or shortness of breath.. PT evaluation recommends SNF rehab Before returning home. (2) Abrasion of face: Impression: Due to recurrent falls. No facial fractures.Wounds appear clean and dry. Plan: Nursing wound care (3) Acute hyponatremia: Impression: Likely hypervolemic hyponatremia. Sodium continues to improve. Patient now eating. Patient now on Lasix 20 mg p.o. Most likely it has to be continued Upon discharge. TSH is within normal limits 1.61 patient on salt tablets, monitor for sodium. (4) CHF (congestive heart failure): Impression: New onset of CHF, Cardiomegaly on chest x-ray with Signs of volume overload, Likely CHF with preserved ejection fracture Echo indicates EF of 50 to 55%, paradoxical septal motion. Indicative of left bundle branch block. Patient has mild mitral regurgitation. Heart rate well- controlled Plan: Continue p.o. Lasix, monitor BNP, Losartan (5) Atrial fibrillation: Impression: This is to be chronic, atrial fibrillation with rate controlled. Patient not on any anticoagulation due to recurrent falls. Continue to monitor (6) BPH (benign prostatic hyperplasia): Impression: Continue patient's Flomax (7) Weakness: Impression: This seems to be a chronic occurrence. PT/OT recommendation includes rehab At Nursing facility (8) Hypertension, essential: Impression: Patient now on Losartan, Blood pressure is well-controlled. (9) Bacteremia due to Gram-positive bacteria: Impression: Overnight blood cultures On 04/20/2024 indicated strep to coccus positive blood cultures 08/08. Patient was started on Rocephin and azithromycin by customer service receptionist. Plan: DC azithromycin continue IV Rocephin 10/11, Awaiting repeat blood culture (10) Hard of hearing: Impression: Most likely patient's Hard of hearing is contributing to his Decreased ADL activities and Sociability ,Social isolation, depression and dementia and overall deconditioning. Advised nurse to make sure patient has hearing aid in.
[2024-04-24 06:25] LABS: BASOPHILS % (AUTO) 0.5 %; EOSINOPHILS # (AUTO) 0.1 10^3/uL (0.0-0.7); HCT - HEMATOCRIT 29.6 % (42.0-52.0); HGB - HEMOGLOBIN 9.6 g/dL (14.0-18.0); LYMPHOCYTES # (AUTO) 1.6 10^3/uL (1.5-3.5); LYMPHOCYTES % (AUTO) 25.7 %; MEAN CORPUSCULAR HGB CONC 32.4 g/dL (32.0-36.0); MEAN CORPUSCULAR VOLUME 86.3 fL (80.0-94.0); MEAN PLATELET VOLUME 9.6 fL (7.4-11.4); MONOCYTES # (AUTO) 0.4 10^3/uL (0.0-1.0); MONOCYTES % (AUTO) 6.9 %; NEUTROPHILS # (AUTO) 4.1 10^3/uL (1.5-6.6); NEUTROPHILS % (AUTO) 64.4 %; PLT - PLATELET COUNT 165 10^3/uL (130-450); RED BLOOD COUNT 3.43 10^6/uL (4.70-6.10); RED CELL DISTRIBUTION WIDTH 16.3 % (12.0-15.0); WHITE BLOOD COUNT 6.4 x10^3/uL (4.8-10.8)
[2024-04-24 06:42] LABS: BUN - BLOOD UREA NITROGEN 27 mg/dL (6-20); CARBON DIOXIDE - CO2 27 mmol/L (21-32); CHLORIDE 98 mmol/L (101-111); CREATININE 0.7 mg/dL (0.6-1.3); GFR - MDRD 107 (>89); GLUCOSE 112 mg/dL (74-104); IONIZED CALCIUM IF INDICATED NO; POTASSIUM 4.5 mmol/L (3.5-4.5); SODIUM 131 mmol/L (135-145)
[2024-04-24] MEDS ORDERED: cefTRIAXone 2 GM VIAL ONE (08:20)
--- NOTE | 2024-04-24 10:29 | Discharge Summary ---
Discharge Summary Admit Date: 04/20/24 Discharge Date: 04/25/24 Discharging Provider: antoine Code Status: Attempt Resuscitation DIAGNOSES Admission Diagnoses: Frequent Falls Face abrasion Acute hyponatremia atrial fibrillation BPH Weakness Hypertension Discharge Diagnoses with Status of Each Condition: Frequent falls: PT recommendation: SNF rehab Face abrasion: Resolved with wound care Acute hyponatremia: Resolved Atrial fibrillation: Chronic, not on anticoagulation due to frequent falls BPH: On Flomax Weakness: PT recommendation: SNF rehab Hypertension: Now on losartan for home medication Bacteremia due to Gram positive bacteria: Course of IV antibiotics, Completion with p.o. antibiotics Hard of hearing: Patient needs hearing aids at the half-way. HPI History of Present Illness: This is an 82-year-old gentleman with a past medical history of atrial fibrillation, not on anticoagulation due to recurrent falls and BPH who presented to the ER today after a ground-level fall at home.Patient states he was walking and all of a sudden his legs gave out and he fell. Says That falls have been happening 4-5 times in the last few weeks. Patient denies dizziness, nausea or headache.Patient denies any dizziness when he gets up from sitting or laying position. Today's ground-level fall resulted in a right-sided scrape and bruises of his face. Patient is somewhat confused. CT head was negative for any acute pathological Processes, No facial bone fracture was seen Chest x-ray indicates cardiomegaly with Signs of acute volume overload.On labs patient's BNP is highly elevated at 1800. Sodium was 127 on admission. Patient states he is always weak and tired. Patient is full code HOSPITAL COURSE Hospital Course: Patient was admitted for weakness and frequent falls. Patient underwent PT evaluation which recommended rehab at facility. Blood cultures taken on admission resolved to Streptococcus bacteria. Patient was started on IV antibiotics. Antibiotics were continued as p.o. as outpatient for 5 additional days. Repeat blood culture had been negative for bacteremia. Hyponatremia resolved with IV fluids and salt tablets. Echocardiogram Indicated preserved EF of 50 to 55% with paradoxical septal motion indicating left bundle branch block. Patient was discharged to SNF with PT rehab. ALLERGIES Allergies Allergy/AdvReac Type Severity Reaction Status Date / Time latex Allergy Rash Verified 04/20/24 14:35 Sulfa (Sulfonamide Allergy Unknown Verified 04/20/24 14:35 Antibiotics) MEDICATIONS Ambulatory Orders Medication Instructions Recorded Confirmed cholecalciferol (vitamin D3) 10 10 mcg PO DAILY 04/21/24 04/21/24 mcg (400 unit) tablet (Delta D3) cranberry 500 mg capsule 500 mg PO DAILY 04/21/24 04/21/24 lutein 10 mg tablet 10 mg PO DAILY 04/21/24 04/21/24 sodium chloride 0.65 % nasal spray 1 spray intranasal BID PRN dry 04/21/24 04/21/24 aerosol ([place] Nasal) nasal passages tamsulosin 0.4 mg capsule 0.4 mg PO DAILY PRN urinary 04/21/24 04/21/24 retention vitamin E 268 mg (400 unit) capsule 268 mg PO DAILY 04/21/24 04/21/24 furosemide 20 mg tablet 20 mg PO DAILY #30 tabs 04/24/24 losartan 50 mg tablet 50 mg PO DAILY #30 tabs 04/24/24 cefpodoxime 200 mg tablet 200 mg PO BID #10 tabs 04/25/24 PHYSICAL EXAM AT DISCHARGE General Appearance: positive No acute distress and Alert Eyes Bilateral: positive Normal inspection and PERRL ENT: positive ENT inspection nml and Pharynx nml Neck: positive Nml inspection and Trachea midline Respiratory: positive Chest non-tender and No respiratory distress Cardiovascular: positive No murmur, No gallop and Other (Atrial fibrillation) Abdomen: positive Non-tender, No organomegaly and No distention Skin: positive Color nml, No rash and Warm Extremities: positive Non-tender and Full ROM Neurologic/Psychiatric: positive Oriented x3 and CN's nml (2-12) LABS 04/25/24 05:16 04/25/24 05:16 DIAGNOSTIC IMAGING Diagnostic Imaging Results: Final report reviewed TIME SPENT Time Spent in Discharge (Minutes): 35 Discharge Plan Discharge Patient Disposition: 03 [facility] DC/Xfer Condition: Stable Medically Cleared Date:: 04/24/24 Prescriptions: New losartan 50 mg Tablet 50 mg PO DAILY Qty: 30 3RF furosemide 20 mg Tablet 20 mg PO DAILY Qty: 30 3RF cefpodoxime 200 mg tablet 200 mg PO BID Qty: 10 0RF Rx Instructions: must administer with a meal/food Continued lutein 10 mg tablet 10 mg PO DAILY Rx Instructions: give with meal/snack cranberry 500 mg capsule 500 mg PO DAILY Rx Instructions: administer with a meal cholecalciferol (vitamin D3) [Delta D3] 10 mcg (400 unit) tablet 10 mcg PO DAILY vitamin E 268 mg (400 unit) capsule 268 mg PO DAILY [place] Nasal 0.65 % aerosol,spray 1 spray intranasal BID PRN (Reason: dry nasal passages) tamsulosin 0.4 MG capsule 0.4 mg PO DAILY PRN (Reason: urinary retention) Rx Instructions: TAKING NEEDED PER PATIENT Activity Restrictions: Activity as Tolerated Diet: Regular Print Language: Turkish Patient Instructions: Heart Failure Stand Alone Forms: SNF Discharge Follow-up Care: Eloy Rocha MD [Primary Care Provider] -
--- NOTE | 2024-04-24 13:31 | PROVIDER PROGRESS NOTE ---
Subjective Prog Note Date Prog Note Date: 04/24/24 Prog Note Time: 13:25 Subjective Subjective: This is an 82-year-old gentleman with a past medical history of atrial fibrillation, not on anticoagulation due to recurrent falls and BPH who presented to the ER today after a ground-level fall at home.Patient states he was walking and all of a sudden his legs gave out and he fell. Says That falls have been happening 4-5 times in the last few weeks. Patient denies dizziness, nausea or headache.Patient denies any dizziness when he gets up from sitting or laying position. Today's ground-level fall resulted in a right-sided scrape and bruises of his face. Patient is somewhat confused. CT head was negative for any acute pathological Processes, No facial bone fracture was seen Chest x-ray indicates cardiomegaly with Signs of acute volume overload.On labs patient's BNP is highly elevated at 1800. Sodium was 127 on admission. Patient states he is always weak and tired. 04/21/2024: Patient complains of back pain due to hard mattress, patient has no other complaints. He is not hungry he did not eat his breakfast Overnight blood cultures resulted to be positive for cryptococcus. He was started on Rocephin and azithromycin by julissa. 04/22/2024: Patient states that He feels somewhat weird but cannot describe what he means by that. He is definitely hard of hearing. Patient has no complaints. 04/23/2024: Patient has no complaints. He is feeling well. Wonders where he is going for rehab. 04/24/2024. Patient sitting in chair has no complaints. Patient queued up for SNF with rehab on 04/25/2024. Current Medications Current Medications Current Medications: Current Medications Generic Name Dose Route Start Last Admin Trade Name Freq PRN Reason Stop Dose Admin Furosemide 20 mg 04/23/24 09:00 04/24/24 08:23 Furosemide 20 Mg Tablet PO 20 mg DAILY [facility] Administration Heparin Sodium (Porcine) 5,000 unit 04/20/24 21:00 04/24/24 08:25 Heparin 5,000 Unit/Ml Vial SUBQ 5,000 unit BID [facility] Administration Ceftriaxone Sodium 2 gm/ 100 mls @ 200 mls/hr 04/22/24 09:00 04/24/24 11:17 Sodium Chloride IV Infused DAILY [facility] Infusion Ibuprofen 400 mg 04/20/24 17:58 Ibuprofen 400 Mg Tablet PO Q4HR PRN Pain 1 to 4 Losartan Potassium 50 mg 04/21/24 09:00 04/24/24 08:24 Losartan 50 Mg Tablet PO 50 mg DAILY [facility] Administration Multivitamins/Minerals 1 tab 04/21/24 17:00 04/24/24 08:24 Multivitamin W/Minerals Tablet PO 1 tab DAILYWM [facility] Administration Oxycodone HCl 5 mg 04/20/24 17:58 04/22/24 22:51 Oxycodone 5 Mg Tablet PO 5 mg Q4HR PRN Administration Pain 5 to 7 Patient Own Med ( 1 each 04/20/24 21:00 04/24/24 08:24 Ipratropium [place] ANAT Not Given 30 Ml [place],Non- BID [facility] Aerosol) Potassium Chloride 40 meq 04/22/24 10:00 04/24/24 08:23 Potassium Chloride 10 Meq Capsule PO 40 meq DAILYWM [facility] Administration Sodium Chloride 10 ml 04/21/24 01:00 04/24/24 02:43 Sodium Chloride Flush 0.9% 10 Ml Syringe IVP 10 ml Q8HR [facility] Administration Sodium Chloride 1 gm 04/21/24 10:00 04/24/24 08:24 Sodium Chloride 1 Gm Tablet PO 1 gm DAILY [facility] Administration Tamsulosin HCl 0.4 mg 04/21/24 09:00 04/24/24 08:24 Tamsulosin 0.4 Mg Capsule PO 0.4 mg DAILY [facility] Administration Objective Vital Signs/Intake & Output Reviewed Vital Signs: Yes Vital Signs: Vital Signs x48h Temp Pulse Resp BP Pulse Ox 04/24/24 08:11 36.6 C 92 H 18 113/70 98 Intake & Output: Intake & Output 04/22/24 04/23/24 04/24/24 04/25/24 05:59 05:59 05:59 05:59 Intake Total 1413 / 1413 1040 / 1040 1620 / 1620 400 / 400 Output Total 450 / 450 475 / 475 500 / 500 Balance 963 / 963 565 / 565 1120 / 1120 400 / 400 Objective General Appearance: positive No acute distress, Alert, Lethargic and Other (Abrasion of right sided face due to recent fall. Wound seems to be noninfected, dry. Has episodes of confusion) Eyes Bilateral: positive Normal inspection, PERRL, EOMI and Other (Abrasion over right eye) ENT: positive ENT inspection nml Neck: positive Nml inspection and Trachea midline Respiratory: positive Chest non-tender and Breath sounds nml Cardiovascular: positive Regular rate & rhythm, No murmur and No gallop Abdomen: positive Non-tender, No organomegaly and Nml bowel sounds Skin: positive Color nml, No rash and Warm Extremities: positive Non-tender, Full ROM and Nml appearance Neurologic/Psychiatric: positive CN's nml (2-12) and Other (Confusion at times) Lab Results 04/24/24 05:53 04/24/24 05:53 Other Labs: Lab Results x24hrs 04/24/24 04/24/24 Range/Units 07:50 05:53 WBC 6.4 (4.8-10.8) x10^3/uL RBC 3.43 L (4.70-6.10) 10^6/uL Hgb 9.6 L (14.0-18.0) g/dL Hct 29.6 L (42.0-52.0) % MCV 86.3 (80.0-94.0) fL MCH 28.0 (27.0-31.0) pg MCHC 32.4 (32.0-36.0) g/dL RDW 16.3 H (12.0-15.0) % Plt Count 165 (130-450) 10^3/uL MPV 9.6 (7.4-11.4) fL Neut # (Auto) 4.1 (1.5-6.6) 10^3/uL Lymph # (Auto) 1.6 (1.5-3.5) 10^3/uL [place] # (Auto) 0.4 (0.0-1.0) 10^3/uL Eos # (Auto) 0.1 (0.0-0.7) 10^3/uL Baso # (Auto) 0.0 (0.0-0.1) 10^3/uL Absolute Nucleated RBC 0.00 x10^3/uL Nucleated RBC % 0.0 /100WBC Sodium 131 L (135-145) mmol/L Potassium 4.5 (3.5-4.5) mmol/L Chloride 98 L (101-111) mmol/L Carbon Dioxide 27 (21-32) mmol/L Anion Gap 6.0 (6-13) BUN 27 H (6-20) mg/dL Creatinine 0.7 (0.6-1.3) mg/dL Estimated GFR (MDRD) 107 (>89) Glucose 112 H (74-104) mg/dL Calcium 9.0 (8.5-10.3) mg/dL Ionized Calcium NO SARS-CoV-2 (PCR) NOT DETECTED Diagnostic Imaging Diagnostic Imaging Results: positive Final report reviewed ABX Reporting Has patient been on IV antibiotics over the past 48 hours?: Yes Assessment/Plan Problem List (1) Falls frequently: Impression: Etiology most likely secondary to Physical Deconditioning and weakness. Patient has no associated symptoms of dizziness, Lightheadedness Or shortness of breath.. PT evaluation recommends SNF rehab Before returning home. (2) Abrasion of face: Impression: Due to recurrent falls. No facial fractures.Wounds appear clean and dry. Plan: Nursing wound care (3) Acute hyponatremia: Impression: Resolved (4) CHF (congestive heart failure): Impression: New onset of CHF, Cardiomegaly on chest x-ray with Signs of volume overload, Likely CHF with preserved ejection fracture Echo indicates EF of 50 to 55%, paradoxical septal motion. Indicative of left bundle branch block. Patient has mild mitral regurgitation. Heart rate well- controlled Plan: Continue p.o. Lasix, monitor BNP, Losartan (5) Atrial fibrillation: Impression: This is to be chronic, atrial fibrillation with rate controlled. Patient not on any anticoagulation due to recurrent falls. Continue to monitor (6) BPH (benign prostatic hyperplasia): Impression: Continue patient's Flomax (7) Weakness: Impression: This seems to be a chronic occurrence. PT/OT recommendation includes rehab At Nursing facility (8) Hypertension, essential: Impression: Patient now on Losartan, Blood pressure is well-controlled. (9) Bacteremia due to Gram-positive bacteria: Impression: Overnight blood cultures On 04/20/2024 indicated strep to coccus positive blood cultures /. Patient was started on Rocephin and azithromycin by coke wheeler. Plan: DC azithromycin continue IV Rocephin 11/10, Repeat blood culture therefore has been negative. Positive blood culture on 1014 indicated Streptococcus Hyointestinalis, Which is very thin units but endemic in intestines of pigs. ? Contaminant blood draw Patient will continue on amoxicillin as an outpatient (10) Hard of hearing: Impression: Most likely patient's Hard of hearing is contributing to his Decreased ADL activities and Sociability ,Social isolation, depression and dementia and overall deconditioning. Advised nurse to make sure patient has hearing aid in. Patient definitely needs hearing 8 at shelter
[2024-04-25 05:30] LABS: BASOPHILS % (AUTO) 0.3 %; EOSINOPHILS # (AUTO) 0.1 10^3/uL (0.0-0.7); HCT - HEMATOCRIT 30.2 % (42.0-52.0); HGB - HEMOGLOBIN 9.8 g/dL (14.0-18.0); LYMPHOCYTES # (AUTO) 1.5 10^3/uL (1.5-3.5); LYMPHOCYTES % (AUTO) 23.5 %; MEAN CORPUSCULAR HGB CONC 32.5 g/dL (32.0-36.0); MEAN CORPUSCULAR VOLUME 86.3 fL (80.0-94.0); MEAN PLATELET VOLUME 8.9 fL (7.4-11.4); MONOCYTES # (AUTO) 0.5 10^3/uL (0.0-1.0); MONOCYTES % (AUTO) 7.5 %; NEUTROPHILS # (AUTO) 4.2 10^3/uL (1.5-6.6); NEUTROPHILS % (AUTO) 66.1 %; PLT - PLATELET COUNT 150 10^3/uL (130-450); RED CELL DISTRIBUTION WIDTH 16.2 % (12.0-15.0); WHITE BLOOD COUNT 6.4 x10^3/uL (4.8-10.8)
[2024-04-25 05:42] LABS: BUN - BLOOD UREA NITROGEN 23 mg/dL (6-20); CARBON DIOXIDE - CO2 25 mmol/L (21-32); CHLORIDE 100 mmol/L (101-111); CREATININE 0.7 mg/dL (0.6-1.3); GFR - MDRD 107 (>89); GLUCOSE 110 mg/dL (74-104); IONIZED CALCIUM IF INDICATED NO; POTASSIUM 4.3 mmol/L (3.5-4.5); SODIUM 131 mmol/L (135-145)
[2024-04-25 07:51] VITALS: O2SAT 97
== END 2024-04-25 10:57 | DRG 872 ==
LOC: MS2 14:29 → ED 14:29 → MS2 18:15
PROVIDERS: ADMIT Internal Medicine; ATTEND Internal Medicine
DX: R53.1 Weakness; D64.9 Anemia, unspecified; R01.1 Cardiac murmur, unspecified; B95.4 Other streptococcus as the cause of diseases classified elsewhere; Z91.81 History of falling; S00.81XA Abrasion of other part of head, initial encounter; I48.91 Unspecified atrial fibrillation; I10 Essential (primary) hypertension; I50.9 Heart failure, unspecified; S00.211A Abrasion of right eyelid and periocular area, initial encounter; E87.1 Hypo-osmolality and hyponatremia; N40.0 Benign prostatic hyperplasia without lower urinary tract symptoms; I44.7 Left bundle-branch block, unspecified; H91.90 Unspecified hearing loss, unspecified ear; Y92.009 Unspecified place in unspecified non-institutional (private) residence as the place of occurrence of the external cause; W18.30XA Fall on same level, unspecified, initial encounter; I48.20 Chronic atrial fibrillation, unspecified; I11.0 Hypertensive heart disease with heart failure; R78.81 Bacteremia

== ENCOUNTER 2025-05-17 07:49 | Observation (INO) ==
--- OUTSIDE RECORDS SUMMARY | 2025-05-17 07:57 | EXTERNAL MEDICAL SUMMARY RPT | Continuity of Care Document ---
Author Organization [place] Address [address] [address] Phone Problems date description facility 2025-03-02 11:25 Chronic systolic (congestive) h eart failure [facility] 2025-03-03 12:18 Chronic systolic (congestive) eart failure [facility] Results/Labs test date facility value unit notes Result panel 1 Platelet Count 2025-03-02 12:05 [facility] 177 x1 0 3/ul (missing) Red Blood Cell Count 2025-03-02 12:[address] [place] [address] 2.92 x10 6/ul (missing) Red Cell Distribution Width 2025-03-02 12:[address] [place] [address] 22.2 % (missing) Hematocrit 2025-03-02 12:[address] [place] [address] 24.1 % (missing) Mean Corpuscular Hemoglobin 2025-03-02 12:[address] [place] [address] 25.1 pg (missing) Mean Corpuscular HGB Conc 2025-03-02 12:05 [facility] 3 0.3 % (missing) White Blood Cell Count 2025-03-02 12:[address] [place] [address] 4.8 x10 3/ul (missing) Hemoglobin 2025-03-02 12:[address] [place] [address] 7.3 g/dl (missing) Mean Corpuscular Volume 2025-03-02 12:[address] [place] [address] 82. 7 fl (missing) Result panel 2 Estimated Glomerular Filt Rate 2025-03-02 12:[address] [place] [address] > 60 ml/min Reported eGFR is based the CKD-EPI 2020 equation that does not use a race coefficient. An eGFR below 60 mL/min/1.73m2 suggests that some kidney damage has occurred, and indicative of chronic kidney disease if persisting greater than 3 months. An eGFR less than 15 is indicative of kidney failure. Creatinine 2025-03-02 12:[address] [place] [address] 0.89 mg/dl (missing) Chloride 2025-03-02 12:[address] [place] [address] 106 mmol/l (missing) Sodium 2025-03-02 12:[address] [place] [address] 138 mmol/l (missing) Carbon Dioxide 2025-03-02 12:36 [facility] 21 mm ol/l (missing) Blood Urea Nitrogen 2025-03-02 12:36 [facility] 29 mg/dl (missing ) BUN Creatinine Ratio 2025-03-02 12:[address] [place] [address] 32.6 (missing) (missing ) Potassium 2025-03-02 12:36 [facility] 4.7 mmol/l (missing) Glucose 2025-03-02 12:36 [facility] 82 mg/dl (missing) Calcium 2025-03-02 12:36 [facility] 9.0 mg/dl (missing) Result panel 3 Estimated Glomerular Filt Rate 2025-03-02 12:[address] [place] [address] > 60 ml/min Reported eGFR is based the CKD-EPI 2020 equation that does not use a race coefficient. An eGFR below 60 mL/min/1.73m2 suggests that some kidney damage has occurred, and indicative of chronic kidney disease if persisting greater than 3 months. An eGFR less than 15 is indicative of kidney failure. Creatinine 2025-03-02 12:[address] [place] [address] 0.89 mg/dl (missing) Chloride 2025-03-02 12:[address] [place] [address] 106 mmol/l (missing) Sodium 2025-03-02 12:[address] [place] [address] 138 mmol/l (missing) Carbon Dioxide 2025-03-02 12:[address] [place] [address] 21 mm ol/l (missing) Blood Urea Nitrogen 2025-03-02 12:[address] [place] [address] 29 mg/dl (missing ) BUN Creatinine Ratio 2025-03-02 12:[address] [place] [address] 32.6 (missing) (missing ) Potassium 2025-03-02 12:[address] [place] [address] 4.7 mmol/l (missing) NT-proBNP (BNP-Adult 18+) 2025-03-02 12:[address] [place] [address] 4050 pg/ml The [facility] cut-points have been suggested for the use of proBNP for the diagnostic evaluation of heart failure (HF) in patients with acute dyspnea: Modality Age in Years Optimal Cut-Off -------- Heart Failure Unlikely: Exclusion Age Independent 300 pg/mL Heart Failure Likely: Diagnostic <50 450 pg/mL 50-75 900 pg/mL >75 1800 pg/mL The 300 pg/mL age-independent rule-out cutoff can be used to identify ED patients in whom HF (heart failuire) is unlikely and who need further investigations for non-cardiac causes of dyspnea. The natriuretic peptides values increase with age, therefore, applying age-dependent rule-in cutoffs (450, 900, and 1800 pg/mL) increases the specificity and positive predictive value for diagnosing patients in whom HF is likely. As mild natriuretic peptides elevations can be caused by non-HF conditions, VITROS NT-proBNP II test results between the exclusion and the diagnosis cutoffs should be considered in the context of the clinical presentation and physical examination in order to correctly identify or exclude HF. Glucose 2025-03-02 12:41 [facility] 82 mg/dl (missing) Calcium 2025-03-02 12:41 [facility] 9.0 mg/dl (missing) Social History date description facility
--- NOTE | 2025-05-17 08:14 | ED Physician Documentation ---
PD HPI DYSPNEA Stated complaint Stated Complaint: IRREGULAR LABS Chief complaint Chief Complaint: General History obtained from History obtained from: Patient History of Present Illness Timing - onset: How many weeks ago (2 to 3 weeks of progressive dyspnea and fatigue and has also noted some dark stools at times. No lino bleeding or red blood. Outpatient CBC showed a significant anemia 5.6 hemoglobin. Referred to the ER.) Timing - details: Gradual onset and Still present Inciting event(s): No URI or Immobilization/travel Improved by: Rest Worsened by: Exertion; No Laying flat Associated symptoms: No Fever, Cough, Wheezing, Chest pain / discomfort or Bilateral edema Similar symptoms before: Has not had sx before Recently seen: Clinic (seen few days ago for this dyspnea and had basic labs, no xray, with lab results back showing low Hgb of 5.6. No known prior anemia. Provider office called him to come ot ED. ) Review of Systems Constitutional Reports: Fatigue and Weakness Ears, nose, mouth, and throat Denies: Nose bleeds Cardiovascular Reports: shortness of breath with exertion Respiratory Reports: Shortness of breath Gastrointestinal Denies: Vomiting, Rectal bleeding, Melena or Blood in stool Endocrine Reports: Fatigue Meds/Allgy Home Medications Ambulatory Orders Medication Instructions Recorded Confirmed furosemide 20 mg tablet 20 mg PO DAILY #30 tabs 04/0605/17/25 losartan 50 mg tablet 50 mg PO DAILY #30 tabs 04/0605/17/25 acetaminophen 500 mg tablet 500 mg PO BID 05/17/2505/31 aspirin 81 mg tablet,delayed 81 mg PO DAILY 05/17/25 1 07/17/24 release Allergies Allergies Allergy/AdvReac Type Severity Reaction Status Date / Time latex Allergy Rash Verified 05/17/25 08:14 Sulfa (Sulfonamide Allergy Unknown Verified 05/17/25 08:14 Antibiotics) PFSH Active Problems All Active Problems (Updated 05/17/25 @ 20:29 by Landon Dao MD) Pleural effusion on right (Acute) Pleural effusion, right (Acute) Mitral valve disorder (Acute) Pulmonary congestion (Acute) Dyspnea (Acute) Severe anemia (Acute) Anemia (Chronic) Mitral valve regurgitation (Acute) Cataract (Acute) Kidney calculi (Acute) Hard of hearing (Acute) Hypertension, essential (Acute) Weakness (Acute) BPH (benign prostatic hyperplasia) (Acute) Falls frequently (Acute) CHF (congestive heart failure) (Acute) Atrial fibrillation (Acute) [place] catheter problem (Acute) Accidental overdose (Acute) Urinary retention (Acute) Back pain (Acute) Knee effusion, right (Acute) Internal derangement of right knee (Acute) Medical History Medical History (Updated 05/17/25 @ 20:29 by Landon Dao MD) Abrasion of face Bacteremia due to Gram-positive bacteria Acute hyponatremia Surgical History Surgical History History of cataract surgery H/O mitral valve repair Social History Social History (Updated 03/10/25 @ 07:43 by Maria T Phillips CRNA) Smoking Status: Former smoker Second hand tobacco smoke exposure: No Do you dip or chew tobacco?: No Do you vape?: No Smoking Status Details: Smoked 1/2 pack a day. Stopped in 1994. Level: Assisted Home Mobility Equipment: Cane Do you feel safe in your home environment?: Yes History of physical, verbal, emotional, or financial abuse?: No Frequency: Daily POLST Patient has POLST: No Exam Exam Vital Signs: Vital Signs x48h Pulse Resp BP Pulse Ox 05/17/25 13:33 76 20 145/74 H 96 05/17/25 12:23 73 22 136/89 H 98 Constitutional normal general appearance, no apparent distress and average body habitus Neck/C-Spine cervical full ROM noted and supple Lymph no lymphadenopathy noted Chest palpation of chest abnormal (dullness to percussion right lower lung field. ) Respiratory breath sounds unequal (decreased on right base.), normal respiratory effort, clear to auscultation bilaterally, no wheezes and rales noted (base) (mild) Cardiovascular normal heart rate noted, rhythm abnormal (irregular), murmur noted (systolic) (left sternal border) and (II/) and no edema Gastrointestinal abdomen soft to palpation, nontender to palpation, nondistended, normoactive bowel sounds and normal rectal exam (no hemorrhoids. No lino blood on exam. Stool had a rust colored appearance) Extremities no tenderness and full ROM Neurology speech normal Psychiatry mental status grossly normal, oriented x3, thought process normal and cooperative Skin skin color normal Results Vitals Vitals: Vital Signs - 24 hr 05/17/25 08:02 05/17/25 08:10 05/17/25 11:08 Temperature 36.6 C Temperature Source Temporal Artery Scan Pulse Rate 80 73 62 Pulse Rate [Monitoring electrodes] Respiratory Rate 26 H 22 18 Blood Pressure 130/50 L 149/66 H 146/73 H Blood Pressure [Left Brachial artery Automatic] O2 Saturation 100 98 98 O2 Source Room air Room air Room air Sedation scale Pain Intensity 0 0 0 05/17/25 11:13 05/17/25 11:35 05/17/25 12:23 Temperature 36.4 C L 36.4 C L Temperature Source Oral Oral Pulse Rate 73 Pulse Rate [Monitoring electrodes] 83 62 Respiratory Rate 18 16 22 Blood Pressure 136/89 H Blood Pressure [Left Brachial artery Automatic] 161/91 H 133/73 H O2 Saturation 96 99 98 O2 Source Room air Room air Room air Sedation scale 0-Fully awake 0-Fully awake Pain Intensity 0 0 0 05/17/25 13:33 Temperature Temperature Source Pulse Rate 76 Pulse Rate [Monitoring electrodes] Respiratory Rate 20 Blood Pressure 145/74 H Blood Pressure [Left Brachial artery Automatic] O2 Saturation 96 O2 Source Room air Sedation scale Pain Intensity Oxygen O2 Source Room air Tele (time rhythm occurred) ED stay: Telemetry / rhythm strip: Rate (80s) and Atrial fibrillation Labs Labs: Microbiology 05/17/25 09:44 Occult Blood - Final Stool Laboratory Tests 05/17/25 05/17/25 05/17/25 08:43 08:43 08:43 WBC 4.7 L RBC 2.17 L 2.19 L Hgb 5.4 L* Hct 19.9 L* MCV 91.7 MCH 24.9 L MCHC 27.1 L RDW 21.2 H Plt Count 168 MPV 9.3 Reticulocyte % (Auto) 3.09 H Neut # (Auto) 3.2 Lymph # (Auto) 0.9 L [place] # (Auto) 0.4 Eos # (Auto) 0.2 Baso # (Auto) 0.0 Absolute Nucleated RBC 0.02 Nucleated RBC % 0.4 Manual Slide Review Indicated Platelet Estimate NORMAL (130-450,000) RBC Morph Micro Appear 4+ ANISOCYTOSIS 1+ SCHISTOCYTES Absolute Retic Sodium Potassium Chloride Carbon Dioxide Anion Gap BUN Creatinine Estimated GFR (MDRD) Glucose Calcium Magnesium Iron TIBC % Saturation Transferrin Ferritin Total Bilirubin AST ALT Alkaline Phosphatase Total Protein Albumin Globulin Albumin/Globulin Ratio Lipase Vitamin B12 Folate Blood Type Antibody Screen Crossmatch IS Only 05/17/25 08:43 WBC RBC Hgb Hct MCV MCH MCHC RDW Plt Count MPV Reticulocyte % (Auto) Neut # (Auto) Lymph # (Auto) [place] # (Auto) Eos # (Auto) Baso # (Auto) Absolute Nucleated RBC Nucleated RBC % Manual Slide Review Platelet Estimate RBC Morph Micro Appear 2+ MICROCYTOSIS Absolute Retic 0.068 Sodium 138 Potassium 4.3 Chloride 109 Carbon Dioxide 23 Anion Gap 6.0 BUN 33 H Creatinine 0.9 Estimated GFR (MDRD) 80 L Glucose 80 Calcium 9.3 Magnesium 1.9 Iron 38 L TIBC 526 H % Saturation 7 L Transferrin 376 H Ferritin 5.1 L Total Bilirubin 0.4 AST 13 ALT 10 Alkaline Phosphatase 50 Total Protein 6.9 Albumin 3.8 Globulin 3.1 Albumin/Globulin Ratio 1.2 Lipase 56 Vitamin B12 194 Folate 12.2 Blood Type A POSITIVE Antibody Screen NEGATIVE Crossmatch IS Only See Detail Rads (name of study) chest xray: Relevant Findings:: Final report received and EMP independent in terpretation of test (elevated right hemidiaphram and moderate right effusion. ) Interpretation: EXAM: [id number] ([id number]) PROCEDURE: XR Chest 1V INDICATIONS: dyspnea TECHNIQUE: One view of the chest was acquired. COMPARISON: 07/06/2024 FINDINGS: Surgical changes and devices: Median sternotomy wires are seen. Lungs and pleura: There is elevation of right hemidiaphragm and blunting of right costophrenic angle suggestive of small to moderate right-sided pleural effusion. Pulmonary vascular congestion and suggestion of pulmonary edema. Superimposed interstitial infiltrates cannot be excluded. No pneumothorax. Mediastinum: Mediastinal contours appear normal. Heart size is enlarged. Bones and chest wall: No suspicious bony lesions. Overlying soft tissues appear unremarkable. IMPRESSION: Finding is concerning for CHF with small to moderate right-sided pleural effusio n. Superimposed interstitial infiltrates can not be excluded. No pneumothorax. Reviewed by: Santana Murillo MD on 05/17/2025 9:31 AM PST PD Medical Decision Making ED course Complexity details: reviewed results, re-evaluated patient (transfusion was starting at time of bed availability in floor. Care to Hospitalist. ), considered differential (comes to ED with labs done few days ago for symptoms of dyspnea. Hgb 5.6 outpt [facility]. No history of anemia. He states has noted dark stools intermittently over past few weeks. NO red blood. ), d/w patient and d/w group segment consultant (Hospitalist Dr. Boyer) ED course: The patient has had 1 to 2 weeks of increasing dyspnea on exertion and fatigue. No notable orthopnea nor edema. Has not had any cough or cold type symptoms. Was seen in clinic several days ago and had blood tests done with the results showing significant anemia that was apparently new for him. No history of that. Referred to the ER with the outpatient labs/through [facility] showing 5.6 hemoglobin. The patient does not have any history of congestive heart failure per se. Remote history of atrial fibrillation for which she has had an ablation. He does appear to be in A-fib right now but with rate controlled. Oxygenation is 96% and his blood pressure is normal at 143/59. Confirming blood count today showed a hemoglobin of 5.4. He did have a low MCH and MCHC HC but a normal MCV. I did order iron folate and B12 levels. Guaiac test was negative at this point but the patient states he has had dark stools intermittently over the past several weeks. Consideration for GI bleed. As such we will give omeprazole started pantoprazole IV. At least currently no abdominal pain and guaiac negative. I did order 2 units red blood cells. Chest x-ray showed elevated right hemidiaphragm with some mild effusion as well. Some vascular congestion. Given his symptomatic dyspnea and fatigue with anemia without apparent cause in combination with possibly some underlying congestive failure, I talked with the hospitalist about having him in the hospital for more careful slow transfusion and care with that and also further evaluation of the anemia. Discharge Plan Discharge Patient Disposition: ED Place in Observation Condition: Stable Clinical Impression: Severe anemia, Dyspnea, Pulmonary congestion, Mitral valve disorder, Pleural effusion on right Interventions: ED Admission Assessment Last Done: 05/17/25 13:38 Vitals documented within 30 minutes of discharge?: Yes
[2025-05-17 08:54] LABS: MEAN PLATELET VOLUME 9.3 fL (7.4-11.4); NRBC ABSOLUTE COUNT (AUTO) 0.02 x10^3/uL; NUCLEATED RED BLOOD CELLS AUTO 0.4 /100WBC; PLT - PLATELET COUNT 168 10^3/uL (130-450); RED CELL DISTRIBUTION WIDTH 21.2 % (12.0-15.0)
[2025-05-17 08:57] LABS: HCT - HEMATOCRIT 19.9 % (42.0-52.0); HGB - HEMOGLOBIN 5.4 g/dL (14.0-18.0); SLIDE REVIEW? Indicated
[2025-05-17 09:11] LABS: ALT ALANINE AMINOTRANSFERASE 10.0 IU/L (10-60); AST ASPARTATE AMINOTRANSFERASE 13.0 IU/L (10-42); BUN - BLOOD UREA NITROGEN 33.0 mg/dL (6-20); CARBON DIOXIDE - CO2 23.0 mmol/L (21-32); CREATININE 0.9 mg/dL (0.6-1.3); GFR - MDRD 80.0 (>89)
[2025-05-17 09:27] LABS: % IRON SATURATION 7.0 % (20-50)
--- NOTE | 2025-05-17 09:34 | XRAY Report ---
PROCEDURE: XR Chest 1V INDICATIONS: dyspnea TECHNIQUE: One view of the chest was acquired. COMPARISON: 07/06/2024 FINDINGS: Surgical changes and devices: Median sternotomy wires are seen. Lungs and pleura: There is elevation of right hemidiaphragm and blunting of right costophrenic angle suggestive of small to moderate right-sided pleural effusion. Pulmonary vascular congestion and suggestion of pulmonary edema. Superimposed interstitial infiltrates cannot be excluded. No pneumothorax. Mediastinum: Mediastinal contours appear normal. Heart size is enlarged. Bones and chest wall: No suspicious bony lesions. Overlying soft tissues appear unremarkable. IMPRESSION: Finding is concerning for CHF with small to moderate right-sided pleural effusion. Superimposed interstitial infiltrates can not be excluded. No pneumothorax. Reviewed by: Santana Murillo MD on 05/17/2025 9:31 AM PST Approved by: Santana Murillo MD on 05/17/2025 9:31 AM [facility] Station ID: [id number]
[2025-05-17 09:36] LABS: PLATELET ESTIMATE, MANUAL NORMAL (130-450,000) (NORMAL)
[2025-05-17] MEDS: FUROSEMIDE 20 MG/2 ML VIAL IVP STA (10:12)
--- NOTE | 2025-05-17 12:47 | HISTORY & PHYSICAL EXAMINATION ---
Chief Complaint Chief Complaint Chief Complaint: Anemia History of Present Illness Admitted From Admitted From:: ED History Obtained From Records Reviewed: [facility] History obtained from: Patient, EMR History of Present Illness HPI Comment/Other: This is an 84-year-old gentleman with a past medical history of for atrial fibrillation, not on AC, BPH, MR s/p mitral repair who presented with 2 to 3 weeks of progressive dyspnea and fatigue. No history of melena or hematochezia. He had labs drawn outpatient which showed a new anemia with Hgb 5.6. Historically his Hgb is around 8. In the ED, patient has consistent results on hemogram, Hgb 5.4. WBC 4.7. Platelets normal. BUN mildly elevated 33. Iron panel reveals TSAT of 7%. Ferritin was not drawn. No lino bleeding in the ED. Chest x-ray with findings suggestive of CHF with moderate right pleural effusion. Hemoccult in the ED was negative. Patient states that he has been having dark brown stools, but not black or tarry. No hematochezia. No hematuria. He is not on blood thinners. His last colonoscopy was about 10 years ago, 2015 or 2017 he thinks. Regarding his cardiac history, he has been having more edema, and had to drop spells last year that prompted him to get further workup. He has been told he has HFpEF. His last echo from here looked reasonably normal. He thinks his last echo in August was the last one he has had. 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 SUZANNE was recommended for further evaluation of the mitral valve, but was not performed. Meds/Allgy Home Medications Ambulatory Orders Medication Instructions Recorded Confirmed furosemide 20 mg tablet 20 mg PO DAILY #30 tabs 04/0605/17/25 losartan 50 mg tablet 50 mg PO DAILY #30 tabs 04/0605/17/25 acetaminophen 500 mg tablet 500 mg PO BID 05/17/2505/31 aspirin 81 mg tablet,delayed 81 mg PO DAILY 05/17/25 1 07/17/24 release Allergies Allergies Allergy/AdvReac Type Severity Reaction Status Date / Time latex Allergy Rash Verified 05/17/25 08:14 Sulfa (Sulfonamide Allergy Unknown Verified 05/17/25 08:14 Antibiotics) PFS Active Problems All Active Problems (Updated 05/17/25 @ 16:34 by Jeremías Boyer DO) Pleural effusion, right (Acute) Mitral valve disorder (Acute) Pulmonary congestion (Acute) Dyspnea (Acute) Severe anemia (Acute) Anemia (Chronic) Mitral valve regurgitation (Acute) Cataract (Acute) Kidney calculi (Acute) Hard of hearing (Acute) Hypertension, essential (Acute) Weakness (Acute) BPH (benign prostatic hyperplasia) (Acute) Falls frequently (Acute) CHF (congestive heart failure) (Acute) Atrial fibrillation (Acute) Olvera catheter problem (Acute) Accidental overdose (Acute) Urinary retention (Acute) Back pain (Acute) Knee effusion, right (Acute) Internal derangement of right knee (Acute) Medical History Medical History (Updated 05/17/25 @ 16:34 by Jeremías Boyer DO) Abrasion of face Bacteremia due to Gram-positive bacteria Acute hyponatremia Surgical History Surgical History History of cataract surgery H/O mitral valve repair Social History Social History (Updated 03/10/25 @ 07:43 by Maria T Phillips CRNA) Smoking Status: Former smoker Second hand tobacco smoke exposure: No Do you dip or chew tobacco?: No Do you vape?: No Smoking Status Details: Smoked 1/2 pack a day. Stopped in 1994. Level: Assisted Home Mobility Equipment: Cane Do you feel safe in your home environment?: Yes History of physical, verbal, emotional, or financial abuse?: No Frequency: Daily POLST Patient has POLST: No Exam Exam Vital Signs: Vital Signs x48h Temp Pulse Pulse Resp BP BP Pulse Ox 05/17/25 14:10 36.6 C 105 H 18 155/82 H 95 05/17/25 13:33 76 20 145/74 H 96 05/17/25 12:23 73 22 136/89 H 98 05/17/25 11:35 36.4 C L 62 16 133/73 H 99 05/17/25 11:13 36.4 C L 83 18 161/91 H 96 05/17/25 11:08 62 18 146/73 H 98 GEN: No acute distress. Appears stated age. HEENT: NC/AT, normal appearance of external ears and nose. Hearing baseline with hearing aids in place. Cardiac: Irregular regular rhythm. Rate controlled. Holosystolic murmur at the left sternal border. Pulm: Distant lung sounds in the right lower watt. No rhonchi. Faint rales more present in the left. Abdomen: Soft, nontender, moderately distended. No rebound or guarding Extremities: Moves all 4 extremities equally. Normal tone. Warm and well- perfused. Neuro: Face symmetric, CN II through XII intact grossly. Gait exam deferred Psych: Mood euthymic with congruent affect. Conclusion/Plan Problem List (1) Severe anemia: Plan: Acute on chronic. Of unclear etiology. He has chronic anemia with his hemoglobin typically around 8. Has been dropping steadily since July of this year. Presented with worsened dyspnea on exertion and fatigue. Was found on outpatient labs to have hemoglobin 5.4. Ferritin and TSAT both low. Reticulocyte count low. His iron deficiency, low reticulocyte count, and stable decline in his hemoglobin over the last 10 months is suggestive of occult GI losses. He did show some schistocytes which is concerning for hemolysis, but LDH was normal. Bilirubin is normal. No lino GI losses of blood. His Hemoccult was reportedly negative in the ED. Pathology from his last colonoscopy was actually on record, completed in February 2015. Had 1 hyperplastic polyp and a tubular adenoma removed. - I will admit the patient for observation status. - Received 1 unit PRBC - Recheck of H/H still Hgb less than 7, transfusing second unit - Check CBC a.m. transfuse hgb <7 - Start iron replacement orally tomorrow - Likely outpatient elective diagnostic upper and lower endoscopy if his counts stabilize (2) Pleural effusion, right: Plan: Present on chest x-ray. Does have some evidence of pulmonary congestion and a large cardiac silhouette in the setting of CHF as below. Orthopnea and dyspnea on exertion as below. Given the unilateral nature of his effusion, I do think it would benefit from diagnostic thoracentesis Differential includes parapneumonic effusion, transudative simple effusion, hemothorax, chylothorax, less likely empyema. - Discussed thoracentesis with patient, he is agreeable, ordered for tomorrow - Thora labs including cytology, cell counts - CHF management as below (3) Mitral valve regurgitation: (4) CHF (congestive heart failure): Plan: Patient with known history of HFpEF. He has been started on diuretics by his outpatient providers. He had an echocardiogram in August 2024 which revealed EF of 55 to 60%, normal RV size and systolic function. Unable to assess diastolic function due to arrhythmia. It did reveal a known mitral repair with angioplasty ring that then had moderate to severe mitral regurgitation present. This hospitalization, he has an effusion as above. Pulmonary congestion as above. BNP of 900. He received a dose of IV Lasix 20 mg in the ED. Outpatient meds include furosemide 20 mg, Jardiance 10 mg He has actually not been taking his Jardiance he tells me. 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 Encourage f/u. (5) Atrial fibrillation: Plan: Known history of atrial fibrillation. Rate controlled. Not on any rate controlling agents prior to this hospitalization. He was previously on anticoagulation, but was stopped after having frequent falls. - Would not resume aspirin at this time, data does not suggest that it is effective at stroke prevention Plan I spent a total of 82 minutes in the care of this patient today. This time was spent reviewing labs, vital signs, imaging, interviewing and examining the patient, and discussing plan of care with them and their other care providers. Patient presenting with severe anemia, was at risk for mortality and severe morbidity on arrival. Decision was made to admit the patient to the hospital. Lab Results 05/17/25 15:04 05/17/25 08:43 Diagnostic Imaging Results Diagnostic Imaging Results: positive Final report reviewed and Read independently Diagnostic Imaging Results Comments: Bilateral interstitial opacities with concern for pulmonary congestion. Moderate right-sided pleural effusion.
[2025-05-17 13:14] LABS: ABSOLUTE RETICS # AUTO 0.068 10^6/uL (0.020-0.110); RETICULOCYTE COUNT % (AUTO) 3.09 % (0.5-2.3)
[2025-05-17] MEDS ORDERED: oxyCODONE 5 MG TABLET PO PRN ×2 (13:42)
[2025-05-17] MEDS ORDERED: ACETAMINOPHEN 325 MG TABLET PO PRN (13:42)
[2025-05-17] MEDS ORDERED: ONDANSETRON 4 MG/2 ML VIAL IVP PRN (13:42)
[2025-05-17] MEDS ORDERED: ONDANSETRON ODT 4 MG TABLET TL PRN (13:42)
[2025-05-17] MEDS ORDERED: SODIUM CHLORIDE FLUSH 0.9% 10 ML SYRINGE IVP PRN (13:42)
[2025-05-17 15:13] LABS: HCT - HEMATOCRIT 23.9 % (42.0-52.0); MEAN PLATELET VOLUME 9.4 fL (7.4-11.4); NRBC ABSOLUTE COUNT (AUTO) 0.00 x10^3/uL; NUCLEATED RED BLOOD CELLS AUTO 0.0 /100WBC; PLT - PLATELET COUNT 174 10^3/uL (130-450); RED CELL DISTRIBUTION WIDTH 19.6 % (12.0-15.0)
[2025-05-17 15:16] LABS: HGB - HEMOGLOBIN 6.7 g/dL (14.0-18.0)
--- NOTE | 2025-05-17 15:49 | PHARMACY PROGRESS NOTE ---
Best Possible Medication History Admit Date and Time: 05/17/25 [id number] Home Medications Medication Instructions Recorded Confirmed Type furosemide 20 mg tablet 20 mg PO DAILY #30 tabs 04/0605/17/25 Rx losartan 50 mg tablet 50 mg PO DAILY #30 tabs 04/0605/17/25 Rx acetaminophen 500 mg tablet 500 mg PO BID 05/17/2505/31 History aspirin 81 mg tablet,delayed 81 mg PO DAILY 05/17/2507/17/24 History release Processed by: Pharmacy Medications reviewed in ED?: No Medication History completed: Yes Patient Interview: Completed Secondary Source(s): Insurance records [facility] Statement: As the person ultimately responsible for medication therapy, providers are able to order a medication from an existing home medication list in [facility] via the "Reconcile Routine" prior to Confirmation of that medication by application support administrator. Such practice is discouraged except when the physician, in their clinical judgment, deems that a medical need exists for a medication without regard to previous use.
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
[2025-05-17] MEDS: SODIUM CHLORIDE FLUSH 0.9% 10 ML SYRINGE IVP SCH (18:02)
[2025-05-18 05:05] LABS: HCT - HEMATOCRIT 25.0 % (42.0-52.0); HGB - HEMOGLOBIN 7.4 g/dL (14.0-18.0); MEAN PLATELET VOLUME 9.8 fL (7.4-11.4); NRBC ABSOLUTE COUNT (AUTO) 0.00 x10^3/uL; NUCLEATED RED BLOOD CELLS AUTO 0.0 /100WBC; PLT - PLATELET COUNT 162 10^3/uL (130-450); RED CELL DISTRIBUTION WIDTH 18.6 % (12.0-15.0)
[2025-05-18 05:12] LABS: INR 1.2 (0.8-1.2); PT - PROTHROMBIN TIME 13.0 secs (9.9-12.6)
[2025-05-18] MEDS: FUROSEMIDE 20 MG TABLET PO SCH (08:05)
[2025-05-18] MEDS: LOSARTAN 50 MG TABLET PO SCH (08:05)
--- NOTE | 2025-05-18 08:23 | PROVIDER PROGRESS NOTE ---
Subjective Prog Note Date Prog Note Date: 05/18/25 Prog Note Time: 08:22 Subjective Subjective: Hemoglobin came up appropriately with transfusion yesterday. Umu from 5.4-7.4 after 2 units. No ongoing signs of active bleeding. His vital signs are stable. Starting on oral iron supplementation this morning. He will need to follow-up with surgery for repeat endoscopy, likely upper and lower. Will discuss with radiology whether they can do his Thora today. If not, likely can defer to outpatient management. Current Medications Current Medications Current Medications: Current Medications Generic Name Dose Route Start Last Admin Trade Name Freq PRN Reason Stop Dose Admin Acetaminophen 650 mg 05/17/25 13:42 Acetaminophen 325 Mg Tablet PO Q4HR PRN Pain 1 to 4, or Fever Furosemide 20 mg 05/18/25 09:00 05/18/25 08:05 Furosemide 20 Mg Tablet PO 20 mg DAILY [facility] Administration Losartan Potassium 50 mg 05/18/25 09:00 05/18/25 08:05 Losartan 50 Mg Tablet PO 50 mg DAILY [facility] Administration Ondansetron HCl 4 mg 05/17/25 13:42 Ondansetron Odt 4 Mg Tablet TL Q6HR PRN Nausea / Vomiting Ondansetron HCl 4 mg 05/17/25 13:42 Ondansetron 4 Mg/2 Ml Vial IVP Q6HR PRN Nausea / Vomiting Oxycodone HCl 5 mg 05/17/25 13:42 Oxycodone 5 Mg Tablet PO Q4HR PRN Pain 5 to 7 Oxycodone HCl 10 mg 05/17/25 13:42 Oxycodone 5 Mg Tablet PO Q4HR PRN Pain 8 to 10 Sodium Chloride 10 ml 05/17/25 13:42 Sodium Chloride Flush 0.9% 10 Ml Syringe IVP PRN PRN NEEDED PER PROVIDER ORDERS Sodium Chloride 10 ml 05/17/25 17:00 05/18/25 08:05 Sodium Chloride Flush 0.9% 10 Ml Syringe IVP 10 ml 0100,0900,1700 [facility] Administration Objective Vital Signs/Intake & Output Vital Signs: Vital Signs x48h Temp Pulse Resp BP Pulse Ox 05/18/25 07:58 36.8 C 75 124/63 92 05/18/25 04:20 36.7 C 79 16 126/59 L 92 05/18/25 01:00 36.8 C 68 20 147/79 H 91 L Intake & Output: Intake & Output 05/15/25 05/16/25 05/17/25 05/18/25 23:59 23:59 23:59 23:59 Intake Total 1080 / 1080 Output Total 1025 / 1025 Balance 55 / 55 Weight (kg) 58.4 kg Lab Results 05/18/25 04:38 05/17/25 08:43 Other Labs: Lab Results x24hrs 05/18/25 05/17/25 05/17/25 Range/Units 04:38 15:04 08:43 WBC 4.7 L 5.1 (4.8-10.8) x10^3/uL RBC 2.78 L 2.61 L (4.70-6.10) 10^6/uL Hgb 7.4 L 6.7 L* (14.0-18.0) g/dL Hct 25.0 L 23.9 L (42.0-52.0) % MCV 89.9 91.6 (80.0-94.0) fL MCH 26.6 L 25.7 L (27.0-31.0) pg MCHC 29.6 L 28.0 L (32.0-36.0) g/dL RDW 18.6 H 19.6 H (12.0-15.0) % Plt Count 162 174 (130-450) 10^3/uL MPV 9.8 9.4 (7.4-11.4) fL Reticulocyte % (Auto) (0.5-2.3) % Neut # (Auto) 3.0 3.4 (1.5-6.6) 10^3/uL Lymph # (Auto) 1.1 L 1.1 L (1.5-3.5) 10^3/uL Hawkins # (Auto) 0.4 0.4 (0.0-1.0) 10^3/uL Eos # (Auto) 0.2 0.2 (0.0-0.7) 10^3/uL Baso # (Auto) 0.0 0.0 (0.0-0.1) 10^3/uL Absolute Nucleated RBC 0.00 0.00 x10^3/uL Nucleated RBC % 0.0 0.0 /100WBC Manual Slide Review Platelet Estimate (NORMAL) RBC Morph Micro Appear 2+ MICROCYTOSIS (NORMAL) Absolute Retic 0.068 (0.020-0.110) 10^6/uL PT 13.0 H (9.9-12.6) secs INR 1.2 (0.8-1.2) D-Dimer 350.7 H (200.0-255.0) ng/mL Sodium 138 (135-145) mmol/L Potassium 4.3 (3.5-4.5) mmol/L Chloride 109 (101-111) mmol/L Carbon Dioxide 23 (21-32) mmol/L Anion Gap 6.0 (6-13) BUN 33 H (6-20) mg/dL Creatinine 0.9 (0.6-1.3) mg/dL Estimated GFR (MDRD) 80 L (>89) Glucose 80 (74-104) mg/dL Calcium 9.3 (8.5-10.3) mg/dL Magnesium 1.9 (1.7-2.3) mg/dL Iron 38 L (50-212) ug/dL TIBC 526 H (250-450) ug/dL % Saturation 7 L (20-50) % Transferrin 376 H (203-362) mg/dL Ferritin 5.1 L (23.9-336.2) ng/mL Total Bilirubin 0.4 (0.2-1.0) mg/dL AST 13 (10-42) IU/L ALT 10 (10-60) IU/L Alkaline Phosphatase 50 (42-121) IU/L Lactate Dehydrogenase 170 (140-271) IU/L B-Natriuretic Peptide 914 H (5-100) pg/mL Total Protein 6.9 (6.4-8.9) g/dL Albumin 3.8 (3.2-5.5) g/dL Globulin 3.1 (2.1-4.2) g/dL Albumin/Globulin Ratio 1.2 (1.0-2.2) Lipase 56 (11-82) U/L Vitamin B12 194 (180-914) pg/mL Folate 12.2 (5.90 - >24.8) ng/mL Blood Type A POSITIVE Antibody Screen NEGATIVE Crossmatch IS Only See Detail 05/17/25 05/17/25 05/17/25 Range/Units 08:43 08:43 08:43 WBC 4.7 L (4.8-10.8) x10^3/uL RBC 2.19 L 2.17 L (4.70-6.10) 10^6/uL Hgb 5.4 L* (14.0-18.0) g/dL Hct 19.9 L* (42.0-52.0) % MCV 91.7 (80.0-94.0) fL MCH 24.9 L (27.0-31.0) pg MCHC 27.1 L (32.0-36.0) g/dL RDW 21.2 H (12.0-15.0) % Plt Count 168 (130-450) 10^3/uL MPV 9.3 (7.4-11.4) fL Reticulocyte % (Auto) 3.09 H (0.5-2.3) % Neut # (Auto) 3.2 (1.5-6.6) 10^3/uL Lymph # (Auto) 0.9 L (1.5-3.5) 10^3/uL Hawkins # (Auto) 0.4 (0.0-1.0) 10^3/uL Eos # (Auto) 0.2 (0.0-0.7) 10^3/uL Baso # (Auto) 0.0 (0.0-0.1) 10^3/uL Absolute Nucleated RBC 0.02 x10^3/uL Nucleated RBC % 0.4 /100WBC Manual Slide Review Indicated Platelet Estimate NORMAL (130-450,000) (NORMAL) RBC Morph Micro Appear 1+ SCHISTOCYTES 4+ ANISOCYTOSIS (NORMAL) Absolute Retic (0.020-0.110) 10^6/uL PT (9.9-12.6) secs INR (0.8-1.2) D-Dimer (200.0-255.0) ng/mL Sodium (135-145) mmol/L Potassium (3.5-4.5) mmol/L Chloride (101-111) mmol/L Carbon Dioxide (21-32) mmol/L Anion Gap (6-13) BUN (6-20) mg/dL Creatinine (0.6-1.3) mg/dL Estimated GFR (MDRD) (>89) Glucose (74-104) mg/dL Calcium (8.5-10.3) mg/dL Magnesium (1.7-2.3) mg/dL Iron (50-212) ug/dL TIBC (250-450) ug/dL % Saturation (20-50) % Transferrin (203-362) mg/dL Ferritin (23.9-336.2) ng/mL Total Bilirubin (0.2-1.0) mg/dL AST (10-42) IU/L ALT (10-60) IU/L Alkaline Phosphatase (42-121) IU/L Lactate Dehydrogenase (140-271) IU/L B-Natriuretic Peptide (5-100) pg/mL Total Protein (6.4-8.9) g/dL Albumin (3.2-5.5) g/dL Globulin (2.1-4.2) g/dL Albumin/Globulin Ratio (1.0-2.2) Lipase (11-82) U/L Vitamin B12 (180-914) pg/mL Folate (5.90 - >24.8) ng/mL Blood Type Antibody Screen Crossmatch IS Only Assessment/Plan Problem List (1) Severe anemia: (2) Pleural effusion, right: (3) Mitral valve regurgitation: (4) CHF (congestive heart failure): (5) Atrial fibrillation:
[2025-05-18] MEDS: FERROUS SULFATE 325 MG TABLET PO SCH (08:44)
[2025-05-18] MEDS: CYANOCOBALAMIN 1,000 MCG/ML VIAL IM ONE (12:00)
[2025-05-18 12:01] LABS: BF CLARITY CLEAR; BF COLOR YELLOW; BF SOURCE PLEURAL; CC,BF RBC < 3000 /mm^3; CC,BF WBC 89 /mm^3
--- NOTE | 2025-05-18 12:01 | XRAY Report ---
PROCEDURE: XR Post Thoracentesis 1V CXR INDICATIONS: post thoracentesis TECHNIQUE: One view of the chest was acquired. COMPARISON: Prior chest x-ray May 17, 2025 at 08:57 FINDINGS: Compared to the prior exam decreased consolidation right lower hemithorax commonly represents a combination of mild to moderate right pleural effusion, atelectatic changes, alveolar opacification or other process. Mildly enlarged cardiopericardial silhouette unchanged. Mildly prominent thad, pulmonary vascular congestion and/or hilar lymph nodes unchanged. [id number] bilateral perihilar and lower lobe peribronchial thickening more than expected for expiratory result, unchanged. Bronchitis, viral infection, bronchopneumonia, asthma or other process should be considered. Follow-up suggested. No pneumothorax. IMPRESSION: Decreased consolidation right lower hemithorax as discussed above. No pneumothorax. Peribronchial thickening as discussed above. If symptoms persist or worsen, or there is high clinical suspicion of thoracic abnormality, CT chest could be performed. Reviewed by: Phu Luna MD on 05/18/2025 11:58 AM PST Approved by: Phu Luna MD on 05/18/2025 11:58 AM PST Station ID: [id number]
--- NOTE | 2025-05-18 12:04 | Ultrasound Report ---
PROCEDURE: US Thoracentesis Puncture INDICATIONS: R pleural effusion TECHNIQUE: The indications, alternatives, benefits, risks, and complications of the procedure were explained to the patient. Written informed consent was obtained and placed in the chart. The chest was examined sonographically, and an appropriate site was chosen for thoracentesis. The skin was prepared and draped in the usual sterile fashion, and 1% lidocaine was infiltrated from the skin down through the pleural surface. A 19-gauge catheter-covered needle was then introduced into the pleural space, the catheter was advanced and the needle was withdrawn, and thereafter pleural fluid was aspirated. The catheter was then removed and a dressing was applied. COMPARISON: None. FINDINGS: Access site: Right hemithorax. Needle: One-Step thoracentesis catheter with introducer needle. Fluid volume and description: 1150 mL clear yellow fluid Fluid sent for diagnostic testing: Yes labs as ordered by the referring physician Medications: 1% lidocaine for local anaesthesia. Complications: None; post-procedural chest radiograph without pneumothorax. IMPRESSION: Successful ultrasound-guided thoracentesis. Reviewed by: Phu Luna MD on 05/18/2025 12:00 PM PST Approved by: Phu Luna MD on 05/18/2025 12:00 PM PST Station ID: [id number]
[2025-05-18 12:28] LABS: LYMPHOCYTES %,BODY FLUID 18 %; MACROPHAGES %,BODY FLUID 1 %; MESOTHELIAL %, BF 59 %; MONOCYTES %,BODY FLUID 4 %; NEUTROPHILS %, BF 19 %
--- NOTE | 2025-05-18 13:14 | Discharge Summary ---
"Discharge Summary Admit Date: 05/17/25 Discharge Date: 05/18/25 Discharging Provider: Jeremías Boyer Primary Care Provider: Amelie Hernandez Code Status: Do Not Attempt Resuscitation Discharge Facility Name: Home DIAGNOSES Discharge Diagnoses with Status of Each Condition: ## Severe anemia He has chronic anemia with his hemoglobin typically around 8. Has been dropping steadily since July of this year. Presented with worsened dyspnea on exertion and fatigue. Was found on outpatient labs to have hemoglobin 5.4. Ferritin and TSAT both low. Reticulocyte count low. His iron deficiency, low reticulocyte count, and stable decline in his hemoglobin over the last 10 months is suggestive of occult GI losses. He did show some schistocytes which is concerning for hemolysis, but LDH was normal. Bilirubin is normal. No lino GI losses of blood. His Hemoccult was reportedly negative in the ED. Pathology from his last colonoscopy was actually on record, completed in February 2015. Had 1 hyperplastic polyp and a tubular adenoma removed. Patient received 2 units PRBC and his hemoglobin stabilized. Hemoglobin at discharge 7.4. - Continue oral iron replacement daily, transition to every other day if having intolerable GI side effects - Started on oral B12 supplementation given concurrent B12 deficiency - Received IM B12 on discharge - Needs follow-up for outpatient elective diagnostic upper and lower endoscopy - No clear indication for IV iron in HFpEF ## Pleural effusion, right Present on chest x-ray on admission. Not on prior CXR. Does have some evidence of pulmonary congestion and a large cardiac silhouette in the setting of CHF as below. Orthopnea and dyspnea on exertion as below. Unusual that he has a unilateral effusion, however this can be seen in specifically right-sided heart failure. Differential includes parapneumonic effusion, transudative simple effusion, hemothorax, chylothorax, less likely empyema. He had a diagnostic and therapeutic thoracentesis with 1.5 L removed during this hospitalization. The initial fluid studies were suggestive of an transudative fluid. Likely in the setting of CHF. - Cytology is still pending - Follow-up with cardiology regarding his CHF ## Mitral valve regurgitation ## CHF (congestive heart failure) Patient with known history of HFpEF. He has been started on diuretics by his outpatient providers. He had an echocardiogram in August 2024 which revealed EF of 55 to 60%, normal RV size and systolic function. Unable to assess diastolic function due to arrhythmia. It did reveal a known mitral repair with angioplasty ring that then had moderate to severe mitral regurgitation present. This hospitalization, he has an effusion as above. Pulmonary congestion as above. BNP of 900. He received a dose of IV Lasix 20 mg in the ED With good response. He is on room air, But experiences some dyspnea on exertion and orthopnea. He is normally very active. Outpatient meds include furosemide 20 mg, Jardiance 10 mg; He has actually not been taking his Jardiance he tells me. - Continue Lasix 20 mg, he got IV x 2 this hospitalization - Encourage cardiac diet moving forward as well, he tends to abide by this - Recommend he follow his daily weights at home - Needs follow-up with cardiology, recommend resuming back on Jardiance or spironolactone for GDMT for HFpEF ## Atrial fibrillation Known history of atrial fibrillation. Rate controlled. Not on any rate controlling agents prior to this hospitalization. He was previously on anticoagulation, but was stopped after having frequent falls. - Patient should consider discontinuing aspirin. Data argues against utility in stroke prevention atrial fibrillation. Does not have other clear indication (e.g. CAD, prior CVA) HPI History of Present Illness: This is an 84-year-old gentleman with a past medical history of for atrial fibrillation, not on AC, BPH, MR s/p mitral repair who presented with 2 to 3 weeks of progressive dyspnea and fatigue. No history of melena or hematochezia. He had labs drawn outpatient which showed a new anemia with Hgb 5.6. Historically his Hgb is around 8. In the ED, patient has consistent results on hemogram, Hgb 5.4. WBC 4.7. Platelets normal. BUN mildly elevated 33. Iron panel reveals TSAT of 7%. Ferritin was not drawn. No lino bleeding in the ED. Chest x-ray with findings suggestive of CHF with moderate right pleural effusion. Hemoccult in the ED was negative. Patient states that he has been having dark brown stools, but not black or tarry. No hematochezia. No hematuria. He is not on blood thinners. His last colonoscopy was about 10 years ago, 2016 or 2017 he thinks. Regarding his cardiac history, he has been having more edema, and had to drop spells last year that prompted him to get further workup. He has been told he has HFpEF. His last echo from here looked reasonably normal. He thinks his last echo in August was the last one he has had. 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 SUZANNE was recommended for further evaluation of the mitral valve, but was not performed. CONSULTS | PROCEDURES Consultations: None Procedures: Diagnostic and therapeutic thoracentesis 05/18 HOSPITAL COURSE Hospital Course: Patient was found to be severely anemic on arrival. He received 2 units of PRBC and his hemoglobin responded appropriately. No signs of lino bleeding while he was here. Given his progressive iron deficiency anemia, most likely etiology is occult enteric losses. His last scope was 10 years ago. No clear indication for an acute endoscopic interrogation. He had a isolated right pleural effusion in the setting of general volume overload. I suspect he has some right-sided heart failure which is contributing. His early labs back from his thoracentesis are suggestive of a transudative simple effusion. Likely in the setting of his heart failure. He is on diuretics, and remains on room air throughout this hospitalization. 1.5 L were removed during his procedure. He tolerated this well with some cough at the end of the procedure. A postprocedure chest x-ray showed an reexpanded lung without any concerning lesions. With his blood counts stable, no acute bleeding, and his pleural effusion resolved he was discharged in stable condition on 05/18. He has follow-up with cardiology, PCP and general surgery for endoscopic interrogation. Patient did endorse wanting to be DNR/DNI during his hospitalization. He was uncomfortable filling out a POLST during this hospitalization. He says he is filled when out he thinks with his primary care doctor, though none is on file. I did let him take a POLST with him to discuss with his and his provider at his next appointment. ALLERGIES Allergies Allergy/AdvReac Type Severity Reaction Status Date / Time latex Allergy Rash Verified 05/17/25 08:14 Sulfa (Sulfonamide Allergy Unknown Verified 05/17/25 08:14 Antibiotics) MEDICATIONS Ambulatory Orders Medication Instructions Recorded Confirmed furosemide 20 mg tablet 20 mg PO DAILY #30 tabs 04/0605/17/25 losartan 50 mg tablet 50 mg PO DAILY #30 tabs 04/0605/17/25 acetaminophen 500 mg tablet 500 mg PO BID 05/17/2505/31 aspirin 81 mg tablet,delayed 81 mg PO DAILY 05/17/2511/25 release cyanocobalamin (vitamin B-12) 500 500 mcg PO DAILY B12 deficiency 05/18/25 mcg tablet #30 tabs ferrous sulfate 325 mg (65 mg 325 mg PO DAILYWM #30 ta bs 05/18/25 iron) tablet PHYSICAL EXAM AT DISCHARGE Vital Signs: Vital Signs x48h Temp Pulse Resp BP Pulse Ox 05/18/25 14:30 36.6 C 68 20 134/62 H 94 LABS 05/18/25 04:38 05/17/25 08:43 DIAGNOSTIC IMAGING Diagnostic Imaging Results: Final report reviewed Diagnostic Imaging Results Comments: CXR 05/08 Post procedure Compared to the prior exam decreased consolidation right lower hemithorax commonly represents a combination of mild to moderate right pleural effusion, atelectatic changes, alveolar opacification or other process. Mildly enlarged cardiopericardial silhouette unchanged. Mildly prominent thad, pulmonary vascular congestion and/or hilar lymph nodes unchanged. [id number] bilateral perihilar and lower lobe peribronchial thickening more than expected for expiratory result, unchanged. Bronchitis, viral infection, bronchopneumonia, asthma or other process should be considered. Follow-up suggested. CXR 05/17 Pre procedure Surgical changes and devices: Median sternotomy wires are seen. Lungs and pleura: There is elevation of right hemidiaphragm and blunting of right costophrenic angle suggestive of small to moderate right-sided pleural effusion. Pulmonary vascular congestion and suggestion of pulmonary edema. Superimposed interstitial infiltrates cannot be excluded. No pneumothorax. Mediastinum: Mediastinal contours appear normal. Heart size is enlarged. Bones and chest wall: No suspicious bony lesions. Overlying soft tissues appear unremarkable. FOLLOW UP Follow Up: Follow-up with PCP Follow-up with cardiology Follow-up with general surgery for endoscopy TIME SPENT Time Spent in Discharge (Minutes): 42 Discharge Plan Discharge Patient Disposition: 01 Home, Self Care Condition: Good Medically Cleared Date:: 05/18/25 Prescriptions: New ferrous sulfate 325 mg (65 mg iron) Tablet 325 mg PO DAILYWM Qty: 30 0RF cyanocobalamin (vitamin B-12) 500 mcg tablet 500 mcg PO DAILY Qty: 30 0RF Continued losartan 50 mg Tablet 50 mg PO DAILY Qty: 30 3RF furosemide 20 mg Tablet 20 mg PO DAILY Qty: 30 3RF aspirin 81 mg tablet,delayed release (DR/EC) 81 mg PO DAILY acetaminophen 500 mg tablet 500 mg PO BID Diet: Cardiac Interventions: Belongings Inventory Last Done: 05/18/25 14:05 Discharge Last Done: 05/18/25 14:47 Discharge Checklist - Nursing Last Done: 05/18/25 14:48 Health Concerns: You have been diagnosed with iron deficiency anemia. This means your body does not have enough iron, which is needed to make healthy red blood cells. Iron deficiency can be caused by not getting enough iron in your diet, problems absorbing iron, or blood loss, often from the gastrointestinal (GI) tract.You received blood transfusions here, 2 of them. Additionally you had a fluid collection in your right lung which was drained. The early studies from this show that it probably came from your heart, but there are further studies that will result over the coming days. Treatment and Next Steps: Iron Supplementation You should start taking oral iron supplements as directed. Most people do well with these, but some may have stomach upset, constipation, or nausea. If you have trouble with side effects, let your doctor know. I often recommend people start by taking it with their largest meal of the day, often dinner. If you find after taking it daily that you are developing constipation, you can change to taking it every other day. However if you are taking daily unable to tolerate, it would work a little bit better. Expected Improvement Your blood counts should start to improve within about one month of treatment. You should get your blood counts checked within the next 1 to 2 weeks with your primary care doctor to make sure that you are anemia is not worsening. If you notice any lino blood in your stool, or worsened black tarry stools, please let your doctor know as you may need to get your labs checked sooner. Follow-Up Testing You will need follow-up with a general surgery. This is important because iron deficiency anemia can sometimes be caused by bleeding or other problems in your stomach or intestines. The surgeon may recommend procedures such as an upper endoscopy and colonoscopy to look for sources of bleeding or other conditions. Sometimes, additional tests for conditions like celiac disease or Helicobacter pylori infection may be needed, as these can affect iron absorption. When to Seek Help Call your doctor or go to the emergency room if you have symptoms such as severe weakness, chest pain, shortness of breath, black or bloody stools, or if you feel faint. In summary: * Take your iron supplements exactly as prescribed. * Follow-up with your primary care doctor in the next 1-2 weeks to follow-up on your labs and whether you are tolerating these treatments. * Keep all follow-up appointments with your internet webmaster. * Let your healthcare team know about any new symptoms or side effects. * Please also follow-up with your leadership recruiter about making sure you are not continuing to accumulate fluid Your care team will work with you to find and treat the cause of your anemia and help you feel better. Print Language: [place] Patient Instructions: ED Anemia, Iron-Deficiency (Adult) Follow-up Care: AMELIE HERNANDEZ APRN [Physician No Access, Family Practice] Landon Muniz MD [Provider Admit Priv/Credential, Surgery, General] Referral Note: Please call for appointment to discuss diagnostic endoscopy and anemia Vitals documented within 30 minutes of discharge?: Yes (Yes)"
[2025-05-18 14:42] VITALS: BP 134/62; TEMP 97.9; O2SAT 94
[2025-05-19 03:09] LABS: GLUCOSE BODY FLUID 132.0 mg/dL (.); PROTEIN BODY FLUID 3.1 g/dL (.)
== END 2025-05-18 14:30 | disposition home or self-care (01) ==
LOC: ED 07:49 → MS3 07:49
PROVIDERS: ADMIT Student in an Organized Health Care Education/Training Program; ATTEND Student in an Organized Health Care Education/Training Program
DX: I48.91 Unspecified atrial fibrillation; Z87.891 Personal history of nicotine dependence; J90 Pleural effusion, not elsewhere classified; I50.32 Chronic diastolic (congestive) heart failure; Z66 Do not resuscitate; N40.0 Benign prostatic hyperplasia without lower urinary tract symptoms; Z86.0102 Personal history of hyperplastic colon polyps; Z86.0101 Personal history of adenomatous and serrated colon polyps; D50.9 Iron deficiency anemia, unspecified

== ENCOUNTER 2025-06-07 10:06 | Inpatient (IN) ==
--- OUTSIDE RECORDS SUMMARY | 2025-06-07 10:27 | EXTERNAL MEDICAL SUMMARY RPT | Continuity of Care Document ---
Author Organization [facility] Address [address] [place] [id number] Phone Problems date description facility 2025-05-17 11:51 Anemia, unspecified [facility] 2025-05-17 13:37 Anemia, unspecified [facility] 2025-05-17 14:09 Anemia, unspecified [facility] 2025-05-17 15:21 Anemia, unspecified [facility] 2025-05-18 11:37 Anemia, unspecified [facility] 2025-05-18 11:37 Nonrheumatic mitral (valve) ins ufficiency [facility] 2025-05-18 11:37 Unspecified atrial fibrillation [facility] 2025-05-18 11:37 Heart failure, unspecified [facility] 2025-05-18 11:37 Other diseases of the pleura (J [id number]) [facility] 2025-05-18 14:59 Anemia, unspecified [facility] 2025-05-18 14:59 Nonrheumatic mitral (valve) ins ufficiency [facility] 2025-05-18 14:59 Unspecified atrial fibrillation [facility] 2025-05-18 14:59 Heart failure, unspecified id [facility] 2025-05-18 14:59 Other diseases of the pleura (J 90-J94) [facility] 2025-05-20 13:25 Anemia, unspecified [facility] 2025-05-20 13:25 Nonrheumatic mitral (valve) ins ufficiency [facility] 2025-05-20 13:25 Unspecified atrial fibrillation [facility] 2025-05-20 13:25 Heart failure, unspecified id [facility] 2025-05-20 13:25 Other diseases of the pleura (J 90-J94) [facility] 2025-05-20 13:25 Other forms of dyspnea [facility] 2025-05-20 13:25 Other fatigue [facility]24 12:17 Chronic systolic (congestive) h eart failure [facility] Results/Labs test date facility value unit notes Result panel 1 BASOPHILS # (AUTO) 2025-05-17 08:43 [facility] 0[facility]0 10 3/ul (missing) NRBC ABSOLUTE COUNT (AUTO) 2025-05-17 08:43 [facility] 0.02 x10 3/ul (missing) ABSOLUTE RETICS # AUTO 2025-05-17 08:43 [facility] 0.068 10 6/ul (missing) EOSINOPHILS # (AUTO) 2025-05-17 08:43 [facility] 0.2 10 3/ul (missing) NUCLEATED RED BLOOD CELLS AUTO 2025-05-17 08:43 [facility] 0.4 /100wbc (missing) MONOCYTES # (AUTO) 2025-05-17 08:43 [facility] 0.4 10 3/ul (missing) BILIRUBIN,TOTAL 2025-05-17 08:43 [facility] 0.4 mg/dl As of January 2023 testing method has changed, this may include reference ranges. LYMPHOCYTES # (AUTO) 2025-05-17 08:43 [facility] 0.9 10 3/ul (missing) CREATININE 2025-05-17 08:43 [facility] 0.9 mg/dl As of January 2023 testing method has changed, this may include reference ranges. RBC MORPHOLOGY (MULTIPLE) 2025-05-17 08:43 [employer] [facility] 1+ SCHISTOCYTES (missing ) (missing) ALBUMIN/GLOBULIN RATIO 2025-05-17 08:43 [facility] 1.2 (missing ) (missing) MAGNESIUM 2025-05-17 08:43 [facility] 1.9 mg/dl As of January 2023 testing method has changed, this may include reference ranges. ALT ALANINE AMINOTRANSFERASE 2025-05-17 08:43 [facility] 10 iu/l As of January 2023 testing method has changed, this may include reference ranges. CHLORIDE 2025-05-17 08:43 [facility] 109 mmol/l As of January 2023 testing method has changed, this may include reference ranges. FOLATE 2025-05-17 08:43 [facility] 12.2 ng/ml (missing) AST ASPARTATE AMINOTRANSFERASE 2025-05-17 08:43 [facility] 13 iu/l As of January 2023 testing method has changed, this may include reference ranges. SODIUM 2025-05-17 08:43 [facility] 138 mmol/l (missing) PLT - PLATELET COUNT 2025-05-17 08:43 [facility] 168 10 3/ul (missing) HCT - HEMATOCRIT 2025-05-17 08:43 [facility] 19.9 % Called to YASMINE GRAYSON/ED by Shay Norton M.T.([facility]) at 0857 05/17/25. Read back(Y/N)? Y VITAMIN B12 2025-05-17 08:43 [facility] 194 pg/ml VITAMIN B12 RANGES: NORMAL 180 - 914 INDETERMINATE 145 -180 DEFICIENT < 145 RBC MORPHOLOGY (MULTIPLE) 2025-05-17 08:43 [facility] 2+ MICROCYTOSIS (missing ) (missing) RED BLOOD COUNT 2025-05-17 08:43 [facility] 2.17 10 6/ul (missing) RED BLOOD COUNT 2025-05-17 08:43 [facility] 2.19 10 6/ul (missing) RED CELL DISTRIBUTION WIDTH 2025-05-17 08:43 [facility] 21.2 % (missing) CARBON DIOXIDE - CO2 2025-05-17 08:43 [facility] 23 mmol/l As of January 2023 testing method has changed, this may include reference ranges. MEAN CORPUSCULAR HEMOGLOBIN 2025-05-17 08:43 [facility] 24.9 pg (missing) MEAN CORPUSCULAR HGB CONC 2025-05-17 08:43 [facility] 27.1 g/dl (missing) RETICULOCYTE COUNT % (AUTO) 2025-05-17 08:43 [facility] 3.09 % (missing) GLOBULIN 2025-05-17 08:43 [facility] 3.1 g/dl (missing) NEUTROPHILS # (AUTO) 2025-05-17 08:43 [facility] 3.2 10 3/ul (missing) ALBUMIN 2025-05-17 08:43 [facility] 3.8 g/dl As of January 2023 testing method has changed, this may include reference ranges. BUN - BLOOD UREA NITROGEN 2025-05-17 08:43 [facility] 33 mg/dl As of January 2023 testing method has changed, this may include reference ranges. TRANSFERRIN 2025-05-17 08:43 [facility] 376 mg/dl As of January 2023 testing method has changed, this may include reference ranges. IRON 2025-05-17 08:43 [facility] 38 ug/dl As of January 2023 testing method has changed, this may include reference ranges. RBC MORPHOLOGY (MULTIPLE) 2025-05-17 08:43 [facility] 4+ ANISOCYTOSIS (missing ) (missing) POTASSIUM 2025-05-17 08:43 [facility] 4.3 mmol/l As of January 2023 testing method has changed, this may include reference ranges. WHITE BLOOD COUNT 2025-05-17 08:43 [facility] 4.7 x10 3/ul (missing) FERRITIN 2025-05-17 08:43 [facility] 5.1 ng/ml (missing) HGB - HEMOGLOBIN 2025-05-17 08:43 [facility] 5.4 g/dl Called to YASMINE GRAYSON/ED by Shay Norton M.T.([facility]) at 0856 05/17/25. Read back(Y/N)? Y ALKALINE PHOSPHATASE 2025-05-17 08:43 [facility] 50 iu/l As of January 2023 testing method has changed, this may include reference ranges. TOTAL IRON BINDING CAPACITY 2025-05-17 08:43 [facility] 526 ug/dl (missing) LIPASE 2025-05-17 08:43 [facility] 56 u/l As of January 2023 testing method has changed, this may include reference ranges. ANION GAP 2025-05-17 08:43 [facility] 6.0 (missing ) (missing) TOTAL PROTEIN 2025-05-17 08:43 [facility] 6.9 g/dl As of January 2023 testing method has changed, this may include reference ranges. % IRON SATURATION 2025-05-17 08:43 [facility] 7 % (missing) GFR - MDRD 2025-05-17 08:43 [facility] 80 (missing ) The IDMT-traceable MDRD Study Equation has been validated extensively in and populations between the ages of 18 and 70 with impaired kidney function (eGFR < 60 mL/min/1.73m2) and has shown good performance for patients with all common causes of kidney disease. Although this equation has not been validated for patients older than 70, an MDRD-derived eGFR may still be a useful tool for providers caring for patients older than 70. References: http://www.nkdep .nih.gov/lab-elvira luation/gfr/crea tinine-stand ardization, last updated September 2011. GLUCOSE 2025-05-17 08:43 [facility] 80 mg/dl As of January 2023 testing method has changed, this may include reference ranges. MEAN PLATELET VOLUME 2025-05-17 08:43 [facility] 9.3 fl (missing) CALCIUM 2025-05-17 08:43 [facility] 9.3 mg/dl As of January 2023 testing method has changed, this may include reference ranges. MEAN CORPUSCULAR VOLUME 2025-05-17 08:43 [facility] 91.7 fl (missing) SLIDE REVIEW? 2025-05-17 08:43 [facility] Indicated (missing ) (missing) PLATELET ESTIMATE, MANUAL 2025-05-17 08:43 [facility] NORMAL (130-450,000) (missing ) (missing) Result panel 2 OCCULT BLOOD IN PAT. SINGLE 2025-05-17 09:44 [facility] 1ONE (missing) (missin g) OCCULT BLOOD IN PAT. SINGLE 2025-05-17 09:44 [facility] NEGREFERENCE RANGE: NEGATIVE (missing) (missing) OCCULT BLOOD IN PAT. SINGLE 2025-05-17 09:44 [facility] NNEGATIVE (missing) (missin g) OCCULT BLOOD IN PAT. SINGLE 2025-05-17 09:44 [facility] NO.CARDSNUMBER OF CARDS (missing) (missing) OCCULT BLOOD IN PAT. SINGLE 2025-05-17 09:[facility] OCCULTOCCULT BLOOD (missing) (missing) OCCULT BLOOD IN PAT. SINGLE 2025-05-17 09:44 [facility] [email or web address] (missing) (missin g) Result panel 3 GLUCOSE BODY FLUID 2025-05-17 11:15 [facility] 132 mg/dl : BODY FLUID TYPE : GLUCOSE : : : : : Amniotic Fluid : 45 - 76 : : : : : Bile, Clear : < 5 : : : : : Bile, Yellow : < 8 : : : : : Lymph : 48 - 200 : : : : : Nasal Secretion : < 10 : : : : : Pleural Fluid : 65 - 99 : : : : : Saliva : < 2 : : (Mixed Glands) : : : : : : Sweat : < 7 : : : : : Synovial Fluid : 65 - 99 : : : : : Tears : 76 - 288 : : : : Sara Trevino V. Reference Intervals for Adults and Children 2007. Ninth edition (V9.1) [facility]; [place]: January 2009. PROTEIN BODY FLUID 2025-05-17 11:15 [facility] 3.1 g/dl : BODY FLUID TYPE : TOTAL PROTEIN : : : : : Amniotic Fluid : <0.4 : : : : : : Nonmalignant: <3.0 : : Ascitic Fluid : Malignant: >3.0 : : : : : Bile, Clear : <0.9 : : : : : Bile, Yellow : 0.2 - 0.6 : : : : : Lymph : 2.2 - 6.0 : : : : : Human Milk : 1.9 - 2.0 : : : : : Nasal Secretion : 0.1 - 3.5 : : : : : Pancreatic : 0.0 - 0.1 : : Juice : (post stimulation) : : : : : : Transudate: <3.0 : : Pleural Fluid : Exudate: >3.0 : : : : : Saliva : 0.1 - 0.2 : : (Mixed Glands) : : : : : : Synovial Fluid : <2.5 : : : : : Tears : 0.8 - 0.9 : : : : Nate WSara V. Reference Intervals for Adults and Children 2008. Ninth Edition (V9.1) [facility]; [place]: January 2009. Performed at: [facility] [address], [address], [place], [place] [id number] Bankruptcy Assistant: Derrick Clarke MD, Phone: [phone] pH BODY FLUID 2025-05-17 11:15 [facility] 7.7 (missin g) This test was developed and its performa nce characteristics determined by [employer]. It has not been cleared or approved by the Food and Drug Administration. The reference interval(s) and other method performance specifications have not been established for this body fluid. The test result must be integrated into the clinical context for interpretation. Performed at: [facility] [address], [address], [place], [place] [id number] Bankruptcy Assistant: Derrick Clarke MD, Phone: [phone] Result panel 4 NUCLEATED RED BLOOD CELLS AUTO 2025-05-17 15:04 [facility] 0.0 /100wbc (missing) BASOPHILS # (AUTO) 2025-05-17 15:04 [facility] 0.0 10 3/ul (missing) NRBC ABSOLUTE COUNT (AUTO) 2025-05-17 15:04 [facility] 0.00 x10 3/ul (missing) EOSINOPHILS # (AUTO) 2025-05-17 15:04 [facility] 0.2 10 3/ul (missing) MONOCYTES # (AUTO) 2025-05-17 15:04 [facility] 0.4 10 3/ul (missing) LYMPHOCYTES # (AUTO) 2025-05-17 15:04 [facility] 1.1 10 3/ul (missing) LDH - LACTATE DEHYDROGENASE 2025-05-17 15:04 [facility] 170 iu/l As of January 2023 testing method has changed, this may include reference ranges. PLT - PLATELET COUNT 2025-05-17 15:04 [facility] 174 10 3/ul (missing) RED CELL DISTRIBUTION WIDTH 2025-05-17 15:04 [facility] 19.6 % (missing) RED BLOOD COUNT 2025-05-17 15:04 [facility] [employer] 2.61 10 6/ul (missing) HCT - HEMATOCRIT 2025-05-17 15:04 [facility] 23.9 % (missing) MEAN CORPUSCULAR HEMOGLOBIN 2025-05-17 15:04 [facility] 25.7 pg (missing) MEAN CORPUSCULAR HGB CONC 2025-05-17 15:04 [facility] [employer] 28.0 g/dl (missing) NEUTROPHILS # (AUTO) 2025-05-17 15:04 [facility] [employer] 3.4 10 3/ul (missing) D-DIMER 2025-05-17 15:04 [facility] 350.7 ng/ml D-Dimer results correspond to ng/mL of d-Dimer Units (D-DU) A cutoff of <230 ng/mL has been established for the negative predictive value for deep venous thrombosis (DVT) and pulmonary embolism (PE). (FDA approved). D-Dimer assay results should be used in conjunction with a clinical pretest probability (PTP) assessment model to exclude venous thromboembolism (VTE) in patient suspected of deep venous thrombosis (DVT) and pulmonary embolism (PE). (revised 05/12/14) WHITE BLOOD COUNT 2025-05-17 15:04 [facility] 5.1 x10 3/ul (missing) HGB - HEMOGLOBIN 2025-05-17 15:04 [facility] 6.7 g/dl Called to MERCED Henriquez by Kenzie Mendez MLT([facility]) at 1515 05/17/25. Read back(Y/N)? Y MEAN PLATELET VOLUME 2025-05-17 15:04 [facility] 9.4 fl (missing) MEAN CORPUSCULAR VOLUME 2025-05-17 15:04 [facility] 91.6 fl (missing) BNP - B-NATRIURETIC PEPTIDE 2025-05-17 15:04 [facility] 914 pg/ml (missing) Result panel 5 NUCLEATED RED BLOOD CELLS AUTO 2025-05-18 04:38 [facility] 0.0 /100wbc (missing) BASOPHILS # (AUTO) 2025-05-18 04:38 [facility] 0.0 10 3/ul (missing) NRBC ABSOLUTE COUNT (AUTO) 2025-05-18 04:38 [facility] 0.00 x10 3/ul (missing) EOSINOPHILS # (AUTO) 2025-05-18 04:38 [facility] 0.2 10 3/ul (missing) MONOCYTES # (AUTO) 2025-05-18 04:38 [facility] 0.4 10 3/ul (missing) LYMPHOCYTES # (AUTO) 2025-05-18 04:38 [facility] 1.1 10 3/ul (missing) INR 2025-05-18 04:38 [facility] 1.2 (missing ) Oral Anticoagulant Indication INR range Venous Thrombosis, P.E. 2.0 - 3.0 Mechanical Valve 2.5 - 3.5 PT - PROTHROMBIN TIME 2025-05-18 04:38 [facility] 13.0 secs N PLT - PLATELET COUNT 2025-05-18 04:38 [facility] 162 10 3/ul (missing) RED CELL DISTRIBUTION WIDTH 2025-05-18 04:38 [facility] 18.6 % (mi ssing) RED BLOOD COUNT 2025-05-18 04:38 [facility] 2.78 10 6/ul (missing) HCT - HEMATOCRIT 2025-05-18 04:38 [facility] 25.0 % (missing) MEAN CORPUSCULAR HEMOGLOBIN 2025-05-18 04:38 [facility] 26.6 pg (missing) MEAN CORPUSCULAR HGB CONC 2025-05-18 04:38 [facility] 29.6 g/dl (missing) NEUTROPHILS # (AUTO) 2025-05-18 04:38 [facility] 3.0 10 3/ul (missing) WHITE BLOOD COUNT 2025-05-18 04:38 [facility] 4.7 x10 3/ul (missing) HGB - HEMOGLOBIN 2025-05-18 04:38 [facility] 7.4 g /dl (missing) MEAN CORPUSCULAR VOLUME 2025-05-18 04:38 [facility] 89.9 fl (missing) MEAN PLATELET VOLUME 2025-05-18 04:38 [facility] 9.8 fl (missing) Result panel 6 CUL,BODY FLUID(AEROBIC) 2025-05-18 11:15 [facility] (missing) (missing) (missing) CC,BF RBC 2025-05-18 11:15 [facility] < 3000 /mm 3 (missing) MACROPHAGES %,BODY FLUID 2025-05-18 11:15 [facility] 1 % (missing) LYMPHOCYTES %,BODY FLUID 2025-05-18 11:15 [facility] 18 % (missing) NEUTROPHILS %, BF 2025-05-18 11:15 [facility] 19 % (missing) MONOCYTES %,BODY FLUID 2025-05-18 11:15 [facility] 4 % (missing) MESOTHELIAL %, BF 2025-05-18 11:15 [facility] 59 % (missing) CC,BF WBC 2025-05-18 11:15 [facility] 89 /mm 3 (missing) BF CLARITY 2025-05-18 11:15 [facility] CLEAR (missing) (missing) CUL,BODY FLUID(AEROBIC) 2025-05-18 11:15 [facility] CULTURE IN PROGRESS. RESULTS TO FOLLOW. (missing) (missing) CUL,BODY FLUID(AEROBIC) 2025-05-18 11:15 [facility] GRAM STAIN (missing) (missing) CUL,BODY FLUID(AEROBIC) 2025-05-18 11:15 [facility] NO GROWTH AFTER 3 DAYS (missing) (missing) CUL,BODY FLUID(AEROBIC) 2025-05-18 11:15 [facility] NO ORGANISMS SEEN (missing) (missing) BF SOURCE 2025-05-18 11:15 [facility] PLEURAL (missing) (missing) CUL,BODY FLUID(AEROBIC) 2025-05-18 11:15 [facility] RARE WHITE BLOOD CELL SEEN (missing) (missing) BF COLOR 2025-05-18 11:15 [facility] YELLOW (missing) (missing) Social History date description facility
--- NOTE | 2025-06-07 11:26 | ED Physician Documentation ---
History of Present Illness Stated complaint Stated Complaint: SOA Chief complaint Chief Complaint: Resp Additonal information Additional information: 84-year-old male with history of kidney disease, hyperlipidemia, hypertension, peripheral vascular disease, NSTEMI, bacteremia, walking pneumonia, CHF presents to the emergency department for increased shortness of breath. Patient says this morning he woke up with severe shortness of breath says this is similar to the last time he was here in the emergency department. Patient says it took about 30 minutes for him to do some deep slow breathing for him to fully catch his breath he says the last time this happened he was diagnosed with walking pneumonia. Meds/Allgy Home Medications Ambulatory Orders Medication Instructions Recorded Confirmed furosemide 20 mg tablet 20 mg PO DAILY #30 tabs 04/0606/07/25 losartan 50 mg tablet 50 mg PO DAILY #30 tabs 04/0606/07/25 acetaminophen 500 mg tablet 500 mg PO BID 05/17/2508/31 aspirin 81 mg tablet,delayed 81 mg PO DAILY 05/17/25 1 08/08/24 release cyanocobalamin (vitamin B-12) 500 500 mcg PO DAILY B12 deficiency 05/18/25 06/07/25 mcg tablet #30 tabs ferrous sulfate 325 mg (65 mg 325 mg PO DAILYWM #30 ta bs 05/18/25 06/07/25 iron) tablet Allergies Allergies Allergy/AdvReac Type Severity Reaction Status Date / Time latex Allergy Rash Verified 06/07/25 11:14 Sulfa (Sulfonamide Allergy Unknown Verified 06/07/25 11:14 Antibiotics) PFSH Active Problems All Active Problems (Updated 06/07/25 @ 17:13 by Harvey Sanchez) Pleural effusion due to CHF (congestive heart failure) (Acute) Acute hypoxic respiratory failure (Acute) Acute exacerbation of CHF (congestive heart failure) (Acute) B12 deficiency (Acute) Iron (Fe) deficiency anemia (Acute) Mitral valve disorder (Acute) Pulmonary congestion (Acute) Anemia (Chronic) Mitral valve regurgitation (Acute) Cataract (Acute) Kidney calculi (Acute) Hard of hearing (Acute) Hypertension, essential (Acute) Weakness (Acute) BPH (benign prostatic hyperplasia) (Acute) Falls frequently (Acute) CHF (congestive heart failure) (Acute) Atrial fibrillation (Acute) [place] catheter problem (Acute) Accidental overdose (Acute) Urinary retention (Acute) Back pain (Acute) Knee effusion, right (Acute) Internal derangement of right knee (Acute) Medical History Medical History (Updated 06/07/25 @ 17:13 by Harvey Sanchez) History of staph infection Frequent falls Kidney disease Hyperlipidemia Hypertension Arthritis PVD (peripheral vascular disease) Vertebral osteomyelitis NSTEMI (non-ST elevated myocardial infarction) Abrasion of face Bacteremia due to Gram-positive bacteria Acute hyponatremia Surgical History Surgical History History of cardiac ablation History of tonsillectomy History of appendectomy Status post mitral valve annuloplasty History of coronary artery bypass graft x 1 History of cataract surgery H/O mitral valve repair Social History Social History Smoking Status: Former smoker If you are a former smoker, when did you quit? (Date/Year): Second hand tobacco smoke exposure: No Do you dip or chew tobacco?: No Do you vape?: No Smoking Status Details: smoked until Level: Assisted Home Mobility Equipment: Cane Do you feel safe in your home environment?: Yes History of physical, verbal, emotional, or financial abuse?: No Frequency: Daily POLST Patient has POLST: No Exam Exam Vital Signs: Vital Signs x48h Temp Pulse Resp BP Pulse Ox 06/07/25 13:29 62 16 153/68 H 95 06/07/25 11:15 63 133/75 H 93 06/07/25 10:11 36.2 C L 65 26 H 140/60 H 97 Constitutional normal general appearance, no apparent distress, average body habitus, no limitations and alert HENMT normocephalic and head/scalp atraumatic Eyes PERRL and EOMs intact bilaterally Neck/C-Spine visual inspection normal Lymph no lymphadenopathy noted Chest inspection of chest normal Respiratory Diminished right breath sounds Cardiovascular normal heart rate noted, regular rhythm noted and murmur noted Genitourinary no CVA tenderness Back/Pelvis spine normal to inspection and no thoracic spine tenderness Extremities normal to inspection Neurology dialysis rn II-XII intact and GCS 15 Psychiatry mental status grossly normal and oriented x3 Skin skin color normal Results Vitals Vitals: Vital Signs - 24 hr 06/07/25 10:11 06/07/25 11:15 06/07/25 13:29 Temperature 36.2 C L Temperature Source Temporal Artery Scan Pulse Rate 65 63 62 Respiratory Rate 26 H 16 Blood Pressure 140/60 H 133/75 H 153/68 H O2 Saturation 97 93 95 O2 Source Room air Room air Room air Pain Intensity 0 0 Oxygen O2 Source Room air EKG (time done) 1210: EKG releavant findings:: EKG personally interpreted by author of this note. Relevant findings are: Rate: Rate (enter#) (51) Rhythm: Atrial fibrillation [place]: Normal Intervals: Normal OR QRS: LBBB Computer interpretation: Agree with computer Labs Labs: Laboratory Tests 06/07/25 06/07/25 06/07/25 10:55 10:55 11:45 WBC 4.3 L RBC 2.90 L Hgb 8.0 L Hct 28.4 L MCV 97.9 H MCH 27.6 MCHC 28.2 L RDW 21.9 H Plt Count 217 MPV 10.1 Neut # (Auto) 2.9 Lymph # (Auto) 0.9 L [place] # (Auto) 0.4 Eos # (Auto) 0.1 Baso # (Auto) 0.0 Absolute Nucleated RBC 0.00 Nucleated RBC % 0.0 Manual Slide Review Indicated Platelet Estimate NORMAL (130-450,000) Platelet Morphology NORMAL APPEARANCE RBC Morph Micro Appear 2+ ANISOCYTOSIS 2+ HYPOCHROMASIA Sodium 138 Potassium 4.7 H Chloride 106 Carbon Dioxide 24 Anion Gap 8.0 BUN 32 H Creatinine 0.8 Estimated GFR (MDRD) 92 Glucose 83 Calcium 9.5 Total Bilirubin 0.6 AST 26 ALT 12 Alkaline Phosphatase 54 B-Natriuretic Peptide 1519 H Total Protein 6.8 Albumin 4.0 Globulin 2.8 Albumin/Globulin Ratio 1.4 Nasal Adenovirus (PCR) NOT DETECTED Nasal B. parapertussis DNA (PCR) NOT DETECTED Nasal Coronavir 229E PCR NOT DETECTED Nasal Coronavir HKU1 PCR NOT DETECTED Nasal Coronavir NL63 PCR NOT DETECTED Nasal Coronavir OC43 PCR NOT DETECTED Nasal Enterovir/Rhinovir PCR NOT DETECTED Nasal Influenza B PCR NOT DETECTED Nasal Influenza A PCR NOT DETECTED Nasal Parainfluen 1 PCR NOT DETECTED Nasal Parainfluen 2 PCR NOT DETECTED Nasal Parainfluen 3 PCR NOT DETECTED Nasal Parainfluen 4 PCR NOT DETECTED Nasal RSV (PCR) NOT DETECTED Nasal B.pertussis DNA PCR NOT DETECTED Nasal C.pneumoniae (PCR) NOT DETECTED Cem Human Metapneumo PCR NOT DETECTED Nasal M.pneumoniae (PCR) NOT DETECTED Nasal SARS-CoV-2 (PCR) NOT DETECTED PD Medical Decision Making ED course ED course: 84-year-old male with extensive cardiac history including CHF, mitral valve disease, CABG, atrial fibrillation, prior NSTEMI, chronic kidney disease, anemia, and peripheral vascular disease presented with acute onset shortness of breath upon waking, similar to prior CHF-related episodes. On arrival he was mildly hypoxic and tachypneic with diminished right-sided breath sounds. Differential included acute CHF exacerbation, pneumonia, pleural effusion, pulmonary embolism, ACS, arrhythmia, anemia-related dyspnea, and COPD, though history and exam most consistent with volume overload and CHF flare. Labs showed significant chronic anemia (Hgb 8.0), elevated BNP (1519), normal troponin, stable renal function, and negative respiratory viral panel. EKG demonstrated atrial fibrillation with LBBB, consistent with baseline. Exam notable for diminished breath sounds on the right, raising concern for pleural effusion. No fever, leukocytosis, or infectious markers to support pneumonia. Given high BNP, respiratory distress history, exam findings, and risk profile, presentation most consistent with acute on chronic CHF exacerbation with suspected pleural effusion contributing to hypoxia. Patient required further IV diuresis, cardiology evaluation, close telemetry monitoring, and continued workup for anemia and volume status, all beyond scope of ED management. He remained hemodynamically stable but continued to require supplemental oxygen and monitoring; therefore, he was admitted for further evaluation and treatment with hospitalist group Discharge Plan Discharge Patient Disposition: 66 [facility] DC/Xfer Condition: Good Clinical Impression: Acute hypoxic respiratory failure Acute exacerbation of CHF (congestive heart failure) Qualifiers: Heart failure type: unspecified Qualified Code(s): I50.9 - Heart failure, unspecified Interventions: ED Admission Assessment Last Done: 06/07/25 15:05 Vitals documented within 30 minutes of discharge?: Yes
[2025-06-07 11:35] LABS: HCT - HEMATOCRIT 28.4 % (42.0-52.0); HGB - HEMOGLOBIN 8.0 g/dL (14.0-18.0); MEAN PLATELET VOLUME 10.1 fL (7.4-11.4); NRBC ABSOLUTE COUNT (AUTO) 0.00 x10^3/uL; NUCLEATED RED BLOOD CELLS AUTO 0.0 /100WBC; PLT - PLATELET COUNT 217 10^3/uL (130-450); RED CELL DISTRIBUTION WIDTH 21.9 % (12.0-15.0)
[2025-06-07 11:38] LABS: SLIDE REVIEW? Indicated
[2025-06-07 11:41] LABS: CARBON DIOXIDE - CO2 24.0 mmol/L (21-32)
[2025-06-07 11:46] LABS: ALT ALANINE AMINOTRANSFERASE 12.0 IU/L (10-60); AST ASPARTATE AMINOTRANSFERASE 26.0 IU/L (10-42); BUN - BLOOD UREA NITROGEN 32.0 mg/dL (6-20); CREATININE 0.8 mg/dL (0.6-1.3); GFR - MDRD 92.0 (>89)
[2025-06-07 11:52] LABS: PLATELET ESTIMATE, MANUAL NORMAL (130-450,000) (NORMAL); PLATELET MORPHOLOGY NORMAL APPEARANCE (NORMAL)
--- NOTE | 2025-06-07 11:53 | XRAY Report ---
PROCEDURE: XR Chest 1V INDICATIONS: SOA TECHNIQUE: One view of the chest was acquired. COMPARISON: 05/07/2025 FINDINGS: Surgical changes and devices: Midline sternotomy wires. Lungs and pleura: Moderately large right pleural effusion with subpulmonic component and associated right basilar atelectasis. Interstitial pulmonary edema with mild alveolar pulmonary edema. Mediastinum: Mediastinal contours appear normal. Heart size is enlarged. Bones and chest wall: No suspicious bony lesions. Overlying soft tissues appear unremarkable. IMPRESSION: Congestive heart failure exacerbation. Reviewed by: Ej Baez MD on 06/07/2025 11:50 AM PST Approved by: Ej Baez MD on 06/07/2025 11:50 AM PST Station ID: [id number]
[2025-06-07] MEDS: FUROSEMIDE 40 MG/4 ML VIAL IVP STA (12:03)
[2025-06-07 13:35] LABS: B. PARAPERTUSSIS- RESP PCR PAN NOT DETECTED; B. PERTUSSIS- RESP PCR PANEL NOT DETECTED; C. PNEUMONIAE- RESP PCR PANEL NOT DETECTED; CORONAVIRUS 229E-RESP PCR NOT DETECTED; CORONAVIRUS HKU1-RESP PCR NOT DETECTED; CORONAVIRUS NL63-RESP PCR NOT DETECTED; CORONAVIRUS OC43-RESP PCR NOT DETECTED; HUMAN METAPNEUMOVIRUS NOT DETECTED; INFLUENZA A- RESP PCR PANEL NOT DETECTED; INFLUENZA B - RESP PCR PANEL NOT DETECTED; M. PNEUMONIAE- RESP PCR PANEL NOT DETECTED; PARAINFLUENZA VIRUS 1 NOT DETECTED; PARAINFLUENZA VIRUS 2 NOT DETECTED; PARAINFLUENZA VIRUS 4 NOT DETECTED; RHINOVIRUS/ENTEROVIRUS NOT DETECTED; RSV- RESP PCR PANEL NOT DETECTED; SARS-CoV-2 -RESP PCR PANEL NOT DETECTED
--- NOTE | 2025-06-07 14:35 | HISTORY & PHYSICAL EXAMINATION ---
Chief Complaint Chief Complaint Chief Complaint: SOA, Acute exacerbation of CHF, pleural effusion CPT Codes:: 16946 History of Present Illness Admitted From Admitted From:: Emergency Room History Obtained From Records Reviewed: Yes History obtained from: Pt, provider notes Exam Limitations: None History of Present Illness HPI Comment/Other: Landon is an 84yoM with history of CHF, kidney dz, HTN, interstitial lung dz, NSTEMI, mitral valve prosthesis, PVD, walking PNA who presented to the ER due to increased SOA at home with any increase in activity or talking since he woke up this AM, taking him between 30min-1hr to fully "catch his breath". Pt has been afebrile, leukocytopenic but not to <4k for SIRS criteria, has no changes in mentation, has good blood pressure, and his RR/RA sat is likely due to lung volume limitation due to effusion and volume-up status from CHF. Today's episode was similar presentation to previous events of acute CHF exacerbation, and the last time he had been dx'd with walking PNA. Pt relates his steadily decreasing level of function which has become increasingly worse on his ADL's, and is increasingly impacting him emotionally and mentally. Pt has a long history of workup including a recent workup (05/18/25) of pleural effusion with thoracentesis sample sent to path which suggested reactive nature (relatively hypocellular with predominately histiocytes, no malignant cells). Pt does endorse unintentional weight loss but denies night sweats. Pt denies any CP, syncope, NVD, STRONG, dysuria, abd pain. Pt will be admitted to the service for IR guided thoracentesis and diagnosis, aggressive diuresis, and respiratory support as needed. Meds/Allgy Home Medications Ambulatory Orders Medication Instructions Recorded Confirmed furosemide 20 mg tablet 20 mg PO DAILY #30 tabs 04/0606/07/25 losartan 50 mg tablet 50 mg PO DAILY #30 tabs 04/0606/07/25 acetaminophen 500 mg tablet 500 mg PO BID 05/17/2508/31 aspirin 81 mg tablet,delayed 81 mg PO DAILY 05/17/25 1 08/08/24 release cyanocobalamin (vitamin B-12) 500 500 mcg PO DAILY B12 deficiency 05/18/25 06/07/25 mcg tablet #30 tabs ferrous sulfate 325 mg (65 mg 325 mg PO DAILYWM #30 ta bs 05/18/25 06/07/25 iron) tablet Allergies Allergies Allergy/AdvReac Type Severity Reaction Status Date / Time latex Allergy Rash Verified 06/07/25 11:14 Sulfa (Sulfonamide Allergy Unknown Verified 06/07/25 11:14 Antibiotics) PFSH Active Problems All Active Problems (Updated 06/07/25 @ 17:13 by Harvey Sanchez) Pleural effusion due to CHF (congestive heart failure) (Acute) Acute hypoxic respiratory failure (Acute) Acute exacerbation of CHF (congestive heart failure) (Acute) B12 deficiency (Acute) Iron (Fe) deficiency anemia (Acute) Mitral valve disorder (Acute) Pulmonary congestion (Acute) Anemia (Chronic) Mitral valve regurgitation (Acute) Cataract (Acute) Kidney calculi (Acute) Hard of hearing (Acute) Hypertension, essential (Acute) Weakness (Acute) BPH (benign prostatic hyperplasia) (Acute) Falls frequently (Acute) CHF (congestive heart failure) (Acute) Atrial fibrillation (Acute) Olvera catheter problem (Acute) Accidental overdose (Acute) Urinary retention (Acute) Back pain (Acute) Knee effusion, right (Acute) Internal derangement of right knee (Acute) Medical History Medical History (Updated 06/07/25 @ 17:13 by Harvey Sanchez) History of staph infection Frequent falls Kidney disease Hyperlipidemia Hypertension Arthritis PVD (peripheral vascular disease) Vertebral osteomyelitis NSTEMI (non-ST elevated myocardial infarction) Abrasion of face Bacteremia due to Gram-positive bacteria Acute hyponatremia Surgical History Surgical History History of cardiac ablation History of tonsillectomy History of appendectomy Status post mitral valve annuloplasty History of coronary artery bypass graft x 1 History of cataract surgery H/O mitral valve repair Social History Social History Smoking Status: Former smoker If you are a former smoker, when did you quit? (Date/Year): Second hand tobacco smoke exposure: No Do you dip or chew tobacco?: No Do you vape?: No Level: Assisted Do you feel safe in your home environment?: Yes History of physical, verbal, emotional, or financial abuse?: No Frequency: Daily POLST Patient has POLST: No Review of Systems Constitutional Reports: Fatigue and Weight loss; Denies: Fever, Chills, Diaphoresis, Night sweats or Weight gain Cardiovascular Reports: edema, swelling of feet/ankles, shortness of breath with exertion, shortness of breath when lying down and Decreased exercise tolerance; Denies: chest pain, palpitations, Syncope or lightheadedness Respiratory Reports: Shortness of breath, Orthopnea, SOB at rest and SOB with exertion; Denies: Cough, Sputum production, Wheezing, Apnea or Coughing up blood Gastrointestinal Denies: Abdominal pain, Abdominal distention, Nausea, Vomiting, Norris blood emesis, Coffee grounds in vomit, Diarrhea, Constipation or Bloating Genitourinary Denies: Painful urination, Flank pain or Genital pain Musculoskeletal Reports: Extremity swelling Neurological Denies: Headache, Focal weakness, Numbness in extremities, Dizziness, Confusion, Behavioral changes or Slurred speech Endocrine Reports: Fatigue Hematologic/Lymphatic Reports: Anemia Allergic/Immunologic Denies: Wheezing Prior Level of Functionality: Pt relates he used to be extremely active, and the constellation of s/s and increasing degree of impact on his ADLs is very distressing for him. Exam Exam Vital Signs: Vital Signs x48h Temp Pulse Resp BP Pulse Ox 06/07/25 13:29 62 16 153/68 H 95 06/07/25 11:15 63 133/75 H 93 06/07/25 10:11 36.2 C L 65 26 H 140/60 H 97 Constitutional distress noted Moderate respiratory distress when standing, talking, walking Eyes PERRL Neck/C-Spine visual inspection normal Chest inspection of chest abnormal Chest appears to have increased AP diameter Respiratory breath sounds unequal Pt lung sounds clear but reduced in RLL/RML to ~1cm above nipple line. No other adventitious sounds appreciated. Cardiovascular normal heart rate noted, murmur noted and peripheral pulses 2+ throughout Pt has audible 3/6 murmur consistent with history of valve prosthesis. Gastrointestinal abdomen normal to inspection, nontender to palpation, nondistended and normoactive bowel sounds Genitourinary no CVA tenderness and bladder normal to palpation Extremities abnormal to inspection Bilat LE 3+ pitting edema but strong dorsalis pedis pulses bilat, cool to touch Neurology speech normal, coordination normal and GCS 15 Skin skin color abnormal and mottling noted LE mottled and reddened secondary to LE edema Conclusion/Plan Problem List (1) Pleural effusion due to CHF (congestive heart failure): Plan: Hospital day 1 Condition: Pt presents with moderately large unilateral right pleural effusion, with prior such event earlier this year and longstanding history of CHF. CXR also showed congestive findings and enlarged cardiac silhouette consistent with CHF. Pt was seen in this facility for a previous pleural effusion in the same side on 05/17 of this year, seen by Dr. Boyer, with a similar degree of fluid and atelectasis seen with similar degree of orthopneic and exertional dyspnea. Pt had undergone thoracentesis of ~1.5L during that visit which had been sent off for diagnostics and path, results showed transudative etiology and path report showing no malignant cells. This event is probably likewise in the setting of acute exacerbation of CHF as there have been no infective signs consistent with a bacterial or viral infection. We will order an IR-guided thoracentesis for further diagnostics (Light's, CX, cytology), to improve degree of atelectasis and ventilation, and consider utility of repeated path for malignancy. Consulting today for scheduling this procedure. We will also be aggressively diuresing pt to further support respiratory function secondary to volume-up status from CHF. Planning to return to ambulatory function without refractory hypoxia, likely d/c to home, will discuss GOC/POLST when pt comes to floor. Assistance: Therapeutic/diagnostic thoracentesis, diuresis, GDMT therapy management, oxygen therapy PRN, and SPO2 monitoring Risk: Further hypoxic respiratory failure progressing to repiratory arrest and Monitor: Monitor respiratory function secondary to therapeutic thoracentesis Evaluate: Evaluate diagnostics from and response to tap. Assess/add: Light's criteria for determining transudative/exudative etiology, can add cytology if indicated. Treat: Therapeutically relieve pressure on R lung by thoracentesis, aggressively diurese to reduce fluid load on pulmonary system, provide O2 PRN treated by s/s and SPO2. (2) Acute exacerbation of CHF (congestive heart failure): Plan: Patient with known history of HFpEF. Last echo 08/24/24, showing EF of 55-60%, with normal LV/RV size, mild/moderate tricuspid regurgitation, and a hx of mitral repair with annuplasty ring and resultant moderate/severe MR. This hospitalization, he has a clearly audible murmur consistent with valve prosthesis. Today his BNP is 1519, representing a significant increase from his 914 on 05/17. We will be aggressively diuresing. Pt has a reassuring potassium of 4.7, and we will address any need for potassium repletion as his course progresses. We can consider adjunctive therapy of Furosemide+MRA therapy if refractory to monotherapy diuresis. We will continue to monitor kidney function closely in conjunction with diuretic tx; his current Cr-clearance is 53mL/min, eGFR 92, and a BUN:Cr of 40. Will monitor for any electrolytic disturbance, acid/base shift, or HANK. Pt is being treated by a resident surgeon in the community by Dr. Bryan in [facility], and is on home Furosemide 20mg/day and Losartan 50mg/day; will confirm with pt and med req as to other elements of GDMT and whether or not he is adherent with his home regimen. Pt received one dose of Furosemide 40mg IVP in the ED, and has voided ~1200mL since that administration, per TOWER OBSERVER, light yellow color. Pt will be continued with Furosemide 40mg BID IVP and will be on a fluid restriction and daily weight, with tight monitoring of I/O. Will continue Losartan at 50mg/day dose; beta blockade, SGLT2i, and MRA GDMT therapy decision during his stay to follow further consideration of his home med req and potential resident surgeon consult. Will consider need for repeat ECHO pending more research by PA student (based on repeated pleural effusion picture, potentially deteriorating mitral regurgitation or other valvular dysfn, and potentially refractory CHF.) Will consider cardiac/Mediterranean diet, but no dietary restrictions ordered now. Monitor: Closely watch fluid status and response to diuretic therapy Evaluate: Close I/O, weights for assessing diuresis Assess/add: Consideration for repeat ECHO, pending more research by PA student for indications. Treat: Furosemide 40mg BID IVP, Losartan at 50mg/day PO. Qualifiers: Heart failure type: unspecified Qualified Code(s): I50.9 - Heart failure, unspecified (3) Anemia: Plan: He has a history of chronic anemia with his hemoglobin typically around 8, which is what it is today. It had been as low as 5.4 during his last visit on 05/17, for which he received 2 units PRBC, bring it up to 7.4 @ d/c. Currently leukopenic at 4.3, but Plt normal at 217, bilirubin 0.6, albumin 4.[address] Boyer's past note, he had concern about occult GI blood loss due to iron deficiency and long gradual decline in Hgb. Pt has denied any melena or hematochezia during today's ROS. Oral ferrous sulfate and B12 ordered, can order iron studies. Pathology from his last colonoscopy was actually on record, completed in February 2015. Had 1 hyperplastic polyp and a tubular adenoma removed. - Continue oral iron replacement daily, transition to every other day if having intolerable GI side effects - Started on oral B12 supplementation given concurrent B12 deficiency - Received IM B12 on discharge - Needs follow-up for outpatient elective diagnostic upper and lower endoscopy - No clear indication for IV iron in HFpEF Monitor: Monitor CBCs, can order iron studies to monitor levels, can order B12 levels if needed, but no neuro findings suggestive of acute B12 deficiency. Evaluate: See if anemia improves with tx. Assess/add: CBC monitoring, TIBC Treat: oral ferrous sulfate 325MG/day with meal, oral B12 PO BID Qualifiers: Anemia type: unspecified type Qualified Code(s): D64.9 - Anemia, unspecified (4) Mitral valve regurgitation: Plan: Pt has history of mild/moderate tricuspid regurgitation, and a hx of mitral repair with annuplasty ring and resultant moderate/severe MR still ongoing per echo on 05/17. This hospitalization, he has a clearly audible murmur consistent with valve prosthesis. Still waiting on med req to find out if he needs anticoagulation continuity due to Afib and unk if MRV biomechanical or true mechanical valve repl. Pt apparently has been fall risk prior to this visit, so decision to anticoagulate will need to be refined. Pt is on Enoxoparin 40mg/day SQ and SCDs for DVT prophy, but can refine this as well. Unk if today's MR is a chronically deteriorating condition. Will still consider a f/u echo to gauge this. Monitor: Monitor systolic fn and murmur grade Qualifiers: Cardiac valve disease etiology: nonrheumatic Qualified Code(s): I34.0 - Nonrheumatic mitral (valve) insufficiency (5) Hypertension, essential: Plan: Documented HTN readings in our system going back to 04/20/24. PCP chart hx unavailable, but purportedly his HTN history is longstanding. Unk if he is on any other HTN therapies other than a diuretic. We can consider an additional agent once med req completes and we can assess response to monotherapy. Monitor: BP at standard intervals Evaluate: Volume status and BP response to Furosemide Assess/add: Can add adjunctive therapy (CCB or ARB, will make an evidence-based decision if HTN refractory to monotherapy) Treat: Furosemide 40mg PO BID IVP (6) BPH (benign prostatic hyperplasia): Plan: Hx of BPH listed in problem list. Unclear until med req if he is on an alpha danika medication, such as Flomax, but will consider ordering if pt ability to void urine in setting of diuresis is a concerning issue during his treatment. Pt denied any current dysuria or problems with voiding. Qualifiers: Lower urinary tract symptom presence: unspecified whether lower urinary tract symptoms present Qualified Code(s): N40.0 - Benign prostatic hyperplasia without lower urinary tract symptoms (7) Atrial fibrillation: Plan: Known history of atrial fibrillation; today's EKG shows Afib and LBBB Still waiting on med req to find out if he needs anticoagulation continuity due to Afib and unk if MRV biomechanical or true mechanical valve repl. Pt apparently has been fall risk prior to this visit, so decision to anticoagulate will need to be refined. Pt is on Enoxoparin 40mg/day SQ and SCDs for DVT prophy, but can refine this as well. Per Dr. Boyer's previous note: Patient should consider discontinuing aspirin. Data argues against utility in stroke prevention atrial fibrillation. Does not have other clear indication (e.g. CAD, prior CVA) Lab Results 06/07/25 10:55 06/07/25 10:55 Diagnostic Imaging Results Diagnostic Imaging Results: positive Final report reviewed and Read independently EKG Results EKG Interpreted Independently: Yes EKG Comparison: Unchanged from prior EKG
[2025-06-07] MEDS ORDERED: SODIUM CHLORIDE FLUSH 0.9% 10 ML SYRINGE IVP PRN (15:19)
[2025-06-07] MEDS: SODIUM CHLORIDE FLUSH 0.9% 10 ML SYRINGE IVP SCH (16:45)
--- NOTE | 2025-06-07 17:31 | PHARMACY PROGRESS NOTE ---
Best Possible Medication History Admit Date and Time: 06/07/25 [id number] Home Medications Medication Instructions Recorded Confirmed Type furosemide 20 mg tablet 20 mg PO DAILY #30 tabs 04/0606/07/25 Rx losartan 50 mg tablet 50 mg PO DAILY #30 tabs 04/0606/07/25 Rx acetaminophen 500 mg tablet 500 mg PO BID 05/17/2508/31 History aspirin 81 mg tablet,delayed 81 mg PO DAILY 05/17/25 1 08/08/24 History release cyanocobalamin (vitamin B-12) 500 500 mcg PO DAILY B12 deficiency 05/18/25 06/07/25 Rx mcg tablet #30 tabs ferrous sulfate 325 mg (65 mg 325 mg PO DAILYWM #30 ta bs 05/18/25 06/07/25 Rx iron) tablet Processed by: Pharmacy Medications reviewed in ED?: Yes Medication History completed: Yes Patient Interview: Completed Secondary Source(s): Insurance records [facility] Statement: As the person ultimately responsible for medication therapy, providers are able to order a medication from an existing home medication list in [facility] via the "Reconcile Routine" prior to Confirmation of that medication by family support specialist. Such practice is discouraged except when the physician, in their clinical judgment, deems that a medical need exists for a medication without regard to previous use.
[2025-06-07] MEDS: FUROSEMIDE 40 MG/4 ML VIAL IVP ONE (18:45)
[2025-06-08 05:52] LABS: HCT - HEMATOCRIT 27.4 % (42.0-52.0); HGB - HEMOGLOBIN 7.8 g/dL (14.0-18.0); MEAN PLATELET VOLUME 9.3 fL (7.4-11.4); NRBC ABSOLUTE COUNT (AUTO) 0.00 x10^3/uL; NUCLEATED RED BLOOD CELLS AUTO 0.0 /100WBC; PLT - PLATELET COUNT 178 10^3/uL (130-450); RED CELL DISTRIBUTION WIDTH 21.2 % (12.0-15.0)
[2025-06-08 05:58] LABS: SLIDE REVIEW? Indicated
[2025-06-08 06:11] LABS: BUN - BLOOD UREA NITROGEN 29.0 mg/dL (6-20); CARBON DIOXIDE - CO2 26.0 mmol/L (21-32); CREATININE 0.8 mg/dL (0.6-1.3); GFR - MDRD 92.0 (>89)
[2025-06-08] MEDS: FUROSEMIDE 40 MG/4 ML VIAL IVP SCH (06:24)
[2025-06-08 06:26] LABS: PLATELET ESTIMATE, MANUAL NORMAL (130-450,000) (NORMAL); PLATELET MORPHOLOGY NORMAL APPEARANCE (NORMAL)
[2025-06-08] MEDS: ENOXAPARIN 40 MG/0.4 ML SYRINGE SUBQ SCH (09:21)
[2025-06-08] MEDS: LOSARTAN 50 MG TABLET PO SCH (09:21)
[2025-06-08] MEDS: FERROUS SULFATE 325 MG TABLET PO SCH (09:21)
[2025-06-08] MEDS: CYANOCOBALAMIN 500 MCG TABLET PO SCH (09:21)
[2025-06-08] MEDS: ASPIRIN EC 81 MG TABLET PO SCH (09:21)
[2025-06-08 11:03] LABS: CC,BF WBC 680 /mm^3
[2025-06-08 11:07] LABS: CC,BF RBC < 3000 /mm^3
[2025-06-08 11:21] LABS: LYMPHOCYTES %,BODY FLUID 32 %; MACROPHAGES %,BODY FLUID 42 %; MONOCYTES %,BODY FLUID 21 %; NEUTROPHILS %, BF 5 %
[2025-06-08 11:24] LABS: BF CLARITY CLEAR; BF COLOR YELLOW; BF SOURCE PLEURAL
--- NOTE | 2025-06-08 12:14 | XRAY Report ---
PROCEDURE: XR Post Thoracentesis 1V CXR INDICATIONS: post thoracentesis TECHNIQUE: One view of the chest was acquired. COMPARISON: 06/07/2025 FINDINGS: Surgical changes and devices: Median sternotomy changes. Lungs and pleura: Diffuse thickening of the interstitial markings. Significant reduction in right pleural effusion. Trace remaining effusion and trace fluid in the major fissure. No pneumothorax post procedure. Mediastinum: Stable cardiomegaly and mild central vascular congestion, decreased compared to prior. Stable aortic contour. Bones and chest wall: No suspicious bony lesions. Overlying soft tissues appear unremarkable. IMPRESSION: No right pneumothorax post right thoracentesis. Decreased size of right pleural effusion. Reviewed by: Ana Laura Squires MD on 06/08/2025 12:11 PM PST Approved by: Ana Laura Squires MD on 06/08/2025 12:11 PM PST Station ID: [id number]
--- NOTE | 2025-06-08 12:16 | Ultrasound Report ---
PROCEDURE: US Thoracentesis Puncture INDICATIONS: recurrent right pleural effusion TECHNIQUE: The indications, alternatives, benefits, risks, and complications of the procedure were explained to the patient. Written informed consent was obtained and placed in the chart. The chest was examined sonographically, and an appropriate site was chosen for thoracentesis. The skin was prepared and draped in the usual sterile fashion, and 1% lidocaine was infiltrated from the skin down through the pleural surface. A 19-gauge catheter-covered needle was then introduced into the pleural space, the catheter was advanced and the needle was withdrawn, and thereafter pleural fluid was aspirated. The catheter was then removed and a dressing was applied. COMPARISON: 05/18/2025 FINDINGS: Access site: Right posterior lateral hemithorax. Needle: One-Step centesis catheter with introducer needle. Fluid volume and description: 1.9 L of clear yellow pleural fluid Fluid sent for diagnostic testing: Yes, per referring physician. Medications: 1% lidocaine for local anaesthesia. Complications: None; post-procedural chest radiograph is negative for pneumothorax. IMPRESSION: Successful ultrasound-guided thoracentesis. Reviewed by: Ana Laura Squires MD on 06/08/2025 12:13 PM PST Approved by: Ana Laura Squires MD on 06/08/2025 12:13 PM PST Station ID: [id number]
[2025-06-08] MEDS: ACETAMINOPHEN 325 MG TABLET PO PRN (13:53)
[2025-06-08] MEDS: ONDANSETRON ODT 4 MG TABLET TL PRN (14:56)
--- NOTE | 2025-06-08 15:02 | PT Plan of Care ---
PT Plan of Care Physical Therapy Plan of Care: Diagnosis Diagnosis R pleural effusion Diagnosis CHF exacerbation Referring Provider Lynnette Coughlin Patient Status Observation Chief Complaint Chief Complaint weakness Onset of Chief Complaint [employer]Y FARM[employer] Medical History (Updated 06/07/25 @ 17:13 by Harvey Sanchez) History of staph infection Frequent falls Kidney disease Hyperlipidemia Hypertension Arthritis PVD (peripheral vascular disease) Vertebral osteomyelitis NSTEMI (non-ST elevated myocardial infarction) Abrasion of face Bacteremia due to Gram-positive bacteria Acute hyponatremia Surgical History (Updated 05/18/25 @ 05:20 by Laura Ghosh, BASILIO) History of cardiac ablation History of tonsillectomy History of appendectomy Status post mitral valve annuloplasty History of coronary artery bypass graft x 1 History of cataract surgery H/O mitral valve repair Balance/ Functional Results Sitting Balance Good Standing Balance Fair Assessment Assessment Pt is a pleasant 84yo M referred for PT eval d/t gait instability and weakness. Admitted with R pleural effusion, CHF exacerbation. Cleared for eval by hospitalist. Upon PT eval, pt met on RA, SpO2 97% at rest and agreeable to participate. Transfers to EOB with Asha, STS with pt's own cane and Antonio. Initial standing balance fair to poor with mild retropulsion and pt reported dizziness requiring PT assist for stability. After stabilizing, pt transfers to b/s chair, reports dizziness has resolved. Gait assessment and training in hallway with SPC, gait belt and close CGA. No LOB but episodes of sway during gait, pt able to self correct and aware of balance deficits. Pt may benefit from continued PT in acute setting to progress safety with functional mobility. When medically clear, PT rec dc home with HHPT/OT. Goals Improve supine to sit to: Modified Independent Improve sit to stand to: Standby Assist Improve pivot transfer ability Standby Assist to: Improve sit to supine to: Modified Independent Improve gait ability to: SBA Assistive Device Used: Front Wheeled Walker,Single Point Cane Other gait goal: gait with least restrictive AD PT Plan of Care Frequency 1-2x/day Duration Until goals are met Discharge Recommendations Discharge Location Previous Living Situation Support/Services Needed Home Health P.T. Other has cane and walker Transport Needs at Discharge Personal vehicle
--- NOTE | 2025-06-08 15:48 | PROVIDER PROGRESS NOTE ---
Subjective Prog Note Date Prog Note Date: 06/08/25 Subjective Subjective: feels nauseated and miserable. Say that when he takes iron this happens, and therefore he does not usually take it. But, it is on his home meds and therefore he got it today. Current Medications Current Medications Current Medications: Current Medications Generic Name Dose Route Start Last Admin Trade Name Freq PRN Reason Stop Dose Admin Acetaminophen 650 mg 06/07/25 15:19 06/08/25 13:53 Acetaminophen 325 Mg Tablet PO 325 mg Q4HR PRN Administration Pain 1 to 4, or Fever Aspirin 81 mg 06/08/25 09:00 06/08/25 09:21 Aspirin Ec 81 Mg Tablet PO 81 mg DAILY [facility] Administration Cyanocobalamin 500 mcg 06/08/25 09:00 06/08/25 09:21 Cyanocobalamin 500 Mcg Tablet PO 500 mcg DAILY [facility] Administration Enoxaparin Sodium 40 mg 06/08/25 09:00 06/08/25 09:21 Enoxaparin 40 Mg/0.4 Ml Syringe SUBQ 40 mg DAILY [facility] Administration Ferrous Sulfate 325 mg 06/08/25 08:00 06/08/25 09:21 Ferrous Sulfate 325 Mg Tablet PO 325 mg DAILYWM [facility] Administration Furosemide 40 mg 06/08/25 06:00 06/08/25 13:57 Furosemide 40 Mg/4 Ml Vial IVP 40 mg BIDDIURETIC [facility] Administration Losartan Potassium 50 mg 06/08/25 09:00 06/08/25 09:21 Losartan 50 Mg Tablet PO 50 mg DAILY [facility] Administration Ondansetron HCl 4 mg 06/07/25 15:19 06/08/25 14:56 Ondansetron Odt 4 Mg Tablet TL 4 mg Q6HR PRN Administration Nausea / Vomiting Sodium Chloride 10 ml 06/07/25 15:19 Sodium Chloride Flush 0.9% 10 Ml Syringe IVP PRN PRN NEEDED PER PROVIDER ORDERS Sodium Chloride 10 ml 06/07/25 17:00 06/08/25 09:22 Sodium Chloride Flush 0.9% 10 Ml Syringe IVP 10 ml 0100,0900,1700 [facility] Administration Objective Vital Signs/Intake & Output Vital Signs: Vital Signs x48h Temp Pulse Pulse Resp BP Pulse Ox 06/08/25 12:35 36.6 C 61 16 112/56 L 95 06/08/25 11:14 88 06/08/25 09:38 36.4 C L 72 18 139/75 H 96 Intake & Output: Intake & Output 06/05/25 06/06/25 06/07/25 06/08/25 23:59 23:59 23:59 23:59 Intake Total 295 / 295 380 / 380 Output Total 2525 / 2525 2450 / 2450 Balance -0 / -2229 -2069 / -2069 Weight (kg) 54.5 kg 54.5 kg Objective General Appearance: positive No acute distress and Alert Eyes Bilateral: positive Normal inspection ENT: positive ENT inspection nml Neck: positive Nml inspection Respiratory: positive No respiratory distress and Rales (occasional) Cardiovascular: positive Regular rate & rhythm Abdomen: positive No distention Back: positive Nml inspection Skin: positive Color nml Extremities: positive No pedal edema Neurologic/Psychiatric: positive Oriented x3 Lab Results 06/08/25 05:24 06/08/25 05:24 Other Labs: Lab Results x24hrs 06/08/25 06/08/25 06/08/25 Range/Units 10:28 05:24 05:24 WBC (4.8-10.8) x10^3/uL RBC (4.70-6.10) 10^6/uL Hgb (14.0-18.0) g/dL Hct (42.0-52.0) % MCV (80.0-94.0) fL MCH (27.0-31.0) pg MCHC (32.0-36.0) g/dL RDW (12.0-15.0) % Plt Count (130-450) 10^3/uL MPV (7.4-11.4) fL Neut # (Auto) (1.5-6.6) 10^3/uL Lymph # (Auto) (1.5-3.5) 10^3/uL [place] # (Auto) (0.0-1.0) 10^3/uL Eos # (Auto) (0.0-0.7) 10^3/uL Baso # (Auto) (0.0-0.1) 10^3/uL Absolute Nucleated RBC x10^3/uL Nucleated RBC % /100WBC Manual Slide Review Platelet Estimate (NORMAL) Platelet Morphology (NORMAL) RBC Morph Micro Appear 1+ POLYCHROMASIA 1+ HYPOCHROMASIA (NORMAL) Sodium 137 (135-145) mmol/L Potassium 3.5 (3.5-4.5) mmol/L Chloride 104 (101-111) mmol/L Carbon Dioxide 26 (21-32) mmol/L Anion Gap 7.0 (6-13) BUN 29 H (6-20) mg/dL Creatinine 0.8 (0.6-1.3) mg/dL Estimated GFR (MDRD) 92 (>89) Glucose 84 (74-104) mg/dL Calcium 8.7 (8.5-10.3) mg/dL Fluid Source PLEURAL Fluid Color YELLOW Fluid Clarity CLEAR Fluid WBC 680 /mm^3 Fluid RBC < 3000 /mm^3 Fluid Neutrophils % 5 % Fluid Lymphocytes % 32 % Fluid Monocytes % 21 % Fluid Macrophages % 42 % 06/08/25 Range/Units 05:24 WBC 4.7 L (4.8-10.8) x10^3/uL RBC 2.86 L (4.70-6.10) 10^6/uL Hgb 7.8 L (14.0-18.0) g/dL Hct 27.4 L (42.0-52.0) % MCV 95.8 H (80.0-94.0) fL MCH 27.3 (27.0-31.0) pg MCHC 28.5 L (32.0-36.0) g/dL RDW 21.2 H (12.0-15.0) % Plt Count 178 (130-450) 10^3/uL MPV 9.3 (7.4-11.4) fL Neut # (Auto) 3.0 (1.5-6.6) 10^3/uL Lymph # (Auto) 0.9 L (1.5-3.5) 10^3/uL [place] # (Auto) 0.5 (0.0-1.0) 10^3/uL Eos # (Auto) 0.2 (0.0-0.7) 10^3/uL Baso # (Auto) 0.0 (0.0-0.1) 10^3/uL Absolute Nucleated RBC 0.00 x10^3/uL Nucleated RBC % 0.0 /100WBC Manual Slide Review Indicated Platelet Estimate NORMAL (130-450,000) (NORMAL) Platelet Morphology NORMAL APPEARANCE (NORMAL) RBC Morph Micro Appear 2+ ANISOCYTOSIS (NORMAL) Sodium (135-145) mmol/L Potassium (3.5-4.5) mmol/L Chloride (101-111) mmol/L Carbon Dioxide (21-32) mmol/L Anion Gap (6-13) BUN (6-20) mg/dL Creatinine (0.6-1.3) mg/dL Estimated GFR (MDRD) (>89) Glucose (74-104) mg/dL Calcium (8.5-10.3) mg/dL Fluid Source Fluid Color Fluid Clarity Fluid WBC /mm^3 Fluid RBC /mm^3 Fluid Neutrophils % % Fluid Lymphocytes % % Fluid Monocytes % % Fluid Macrophages % % Diagnostic Imaging Diagnostic Imaging Comments: chest XR much improved after thoracentesis. Assessment/Plan Problem List (1) Pleural effusion due to CHF (congestive heart failure): Impression: Pt presents with moderately large unilateral right pleural effusion, readmission from 05/17. CXR also showed congestive findings and enlarged cardiac silhouette consistent with CHF. At the time of his last admission, he had improvement of symptoms w thoracentesis. He did have thoracentesis this AM. post procedure CXR does not show PTX and shows vast improvement of his pleural effusion. Fluid was sent for pathology and cytology today. He has been seen by PT and OK to return to home. He has cardiology followup scheduled for 06/10. He is -3L today with aggressive diuresis. K= 3.5. I will add a dose of oral KCl with evening meal. This is a readmission for CHF exacerbation. He would benefit from repeat echocardiogram. At home he is on LAsix 20mg daily, he likely need increased dosing. I would like to get him home in time to meet with his new cardiolgoist, Dr Becerra on 06/10 as planned. He has passed oxygen desat test today (he failed this yesterday). At this point recommend home with home health on LAsix 40mg daily. (2) Acute exacerbation of CHF (congestive heart failure): Impression: Patient with known history of HFpEF. Last echo 08/24/24, showing EF of 55-60%, with normal LV/RV size, mild/moderate tricuspid regurgitation, and a hx of mitral repair with annuplasty ring and resultant moderate/severe MR. This hospitalization, he has a clearly audible murmur consistent with valve prosthesis. Admission BNP is 1519, representing a significant increase from his 914 on 05/17. he has received 120mg lasix in 2 doses yesterday and today ,40mg BID resulting in what appears to be adequate diuresis, his oxygenation has improved, as has his dyspnea. Pt is being treated by a nurse transitional in the community by Dr. Becerra in [facility], and is on home Furosemide 20mg/day and Losartan 50mg/day;seeing cardiology on 06/10. Will defer majority of med changes to them, but will double lasix dosing on dc. Furosemide 40mg BID IVP, (changed to 40mg daily starting 06/09), Losartan at 50mg/day PO. Echo in the AM. Likely home 06/09. This is a readmission, I think this patient will benefit from additional night of diuresis, VS monitoring and repeat echo prior to dc to home. Qualifiers: Heart failure type: unspecified Qualified Code(s): I50.9 - Heart failure, unspecified (3) Anemia: Impression: He has a history of chronic anemia with his hemoglobin typically around 8, which is what it is today. It had been as low as 5.4 during his last visit on 05/17, for which he received 2 units PRBC, bring it up to 7.4 @ d/c. Per Dr. Boyer's past note, he had concern about occult GI blood loss due to iron deficiency and long gradual decline in Hgb. Pt has denied any melena or hematochezia. Oral ferrous sulfate and B12 ordered, he is not tolerating oral iron well. I will check iron studies with AM labs and consider IV iron. Pathology from his last colonoscopy was actually on record, completed in February 2015. Had 1 hyperplastic polyp and a tubular adenoma removed. - would only refer for endoscopy evaluation if anemia remains persistent. Would proceed with caution if this patient needs lower endoscopy as the prep can be very physiologically stressful for the patient and the risk for perforation rises with age. - Qualifiers: Anemia type: unspecified type Qualified Code(s): D64.9 - Anemia, unspecified (4) Mitral valve regurgitation: Impression: history. Followup echocardiogram. Qualifiers: Cardiac valve disease etiology: nonrheumatic Qualified Code(s): I34.0 - Nonrheumatic mitral (valve) insufficiency (5) Hypertension, essential: Impression: chronic and stable. Continue Losartan, hold SBP <110 (6) Atrial fibrillation: Impression: rate controlled without rate controlling meds. Not anticoagulated due to age and fall risk. (7) BPH (benign prostatic hyperplasia): Impression: He is voiding independently. I have spent 51 minutes in the care of this patient today. This includes time [id number], review and ordering of diagnostic imaging and laboratory studies and consultation with other providers. Monitoring the patient's signs symptoms, evaluation of medication effectiveness and patient's response to treatment. Qualifiers: Lower urinary tract symptom presence: unspecified whether lower urinary tract symptoms present Qualified Code(s): N40.0 - Benign prostatic hyperplasia without lower urinary tract symptoms
[2025-06-08] MEDS: POTASSIUM CHLORIDE 20 MEQ TABLET PO SCH (17:34)
[2025-06-08] MEDS: CALCIUM CARBONATE CHEW 500 MG TABLET PO SCH (21:37)
[2025-06-09 05:54] LABS: HCT - HEMATOCRIT 29.2 % (42.0-52.0); HGB - HEMOGLOBIN 8.5 g/dL (14.0-18.0); MEAN PLATELET VOLUME 9.4 fL (7.4-11.4); NRBC ABSOLUTE COUNT (AUTO) 0.00 x10^3/uL; NUCLEATED RED BLOOD CELLS AUTO 0.0 /100WBC; PLT - PLATELET COUNT 188 10^3/uL (130-450); RED CELL DISTRIBUTION WIDTH 21.1 % (12.0-15.0)
[2025-06-09 05:58] LABS: SLIDE REVIEW? Indicated
[2025-06-09 06:16] LABS: % IRON SATURATION 13.0 % (20-50); BUN - BLOOD UREA NITROGEN 34.0 mg/dL (6-20); CARBON DIOXIDE - CO2 28.0 mmol/L (21-32); CREATININE 1.1 mg/dL (0.6-1.3); GFR - MDRD 63.0 (>89)
[2025-06-09 06:19] LABS: PLATELET ESTIMATE, MANUAL NORMAL (130-450,000) (NORMAL); PLATELET MORPHOLOGY NORMAL APPEARANCE (NORMAL)
[2025-06-09] MEDS: FUROSEMIDE 40 MG TABLET PO SCH (08:25)
--- NOTE | 2025-06-09 12:04 | Discharge Summary ---
Discharge Summary Admit Date: 06/07/25 Discharge Date: 06/09/25 Discharging Provider: Lul Law Primary Care Provider: Arabella Garcia Code Status: Do Not Attempt Resuscitation DIAGNOSES Discharge Diagnoses with Status of Each Condition: Pleural effusion due to CHFstatus post thoracentesis, increased diuretic Anemiachronic Mitral valve regurgitationchronic Hypertensionchronic A-fibchronic BPHchronic HPI History of Present Illness: Landon is an 84yoM with history of CHF, kidney dz, HTN, interstitial lung dz, NSTEMI, mitral valve prosthesis, PVD, walking PNA who presented to the ER due to increased SOA at home with any increase in activity or talking since he woke up this AM, taking him between 30min-1hr to fully "catch his breath". Pt has been afebrile, leukocytopenic but not to <4k for SIRS criteria, has no changes in mentation, has good blood pressure, and his RR/RA sat is likely due to lung volume limitation due to effusion and volume-up status from CHF. Today's episode was similar presentation to previous events of acute CHF exacerbation, and the last time he had been dx'd with walking PNA. Pt relates his steadily decreasing level of function which has become increasingly worse on his ADL's, and is increasingly impacting him emotionally and mentally. Pt has a long history of workup including a recent workup (05/18/25) of pleural effusion with thoracentesis sample sent to path which suggested reactive nature (relatively hypocellular with predominately histiocytes, no malignant cells). Pt does endorse unintentional weight loss but denies night sweats. Pt denies any CP, syncope, NVD, STRONG, dysuria, abd pain. Pt will be admitted to the service for IR guided thoracentesis and diagnosis, aggressive diuresis, and respiratory support as needed. HOSPITAL COURSE Hospital Course: Patient was admitted for pleural effusion due to worsening CHF. He had a thoracentesis on 06/08 with improvement in his symptoms. His Lasix has been increased to 40 mg daily, and I added a potassium supplement for him to take daily. He has follow-up with cardiology tomorrow, and with primary care next week ALLERGIES Allergies Allergy/AdvReac Type Severity Reaction Status Date / Time latex Allergy Rash Verified 06/07/25 11:14 Sulfa (Sulfonamide Allergy Unknown Verified 06/07/25 11:14 Antibiotics) MEDICATIONS Ambulatory Orders Medication Instructions Recorded Confirmed losartan 50 mg tablet 50 mg PO DAILY #30 tabs 04/0606/07/25 acetaminophen 500 mg tablet 500 mg PO BID 05/17/2508/31 aspirin 81 mg tablet,delayed 81 mg PO DAILY 05/17/25 1 08/08/24 release cyanocobalamin (vitamin B-12) 500 500 mcg PO DAILY B12 deficiency 05/18/25 06/07/25 mcg tablet #30 tabs ferrous sulfate 325 mg (65 mg 325 mg PO DAILYWM #30 ta bs 05/18/25 06/07/25 iron) tablet furosemide 20 mg tablet 40 mg (2 x 20 mg) PO DAILY # 30 tabs 06/09/25 potassium chloride 20 mEq 20 meq PO DAILYWM 30 days #3 0 tabs 06/09/25 tablet,extended release(part/cryst) (Klor-Con M) PHYSICAL EXAM AT DISCHARGE Vital Signs: Vital Signs x48h Temp Pulse Resp BP Pulse Ox 06/09/25 13:15 97.7 F 60 16 108/58 L 96 06/09/25 07:45 98.4 F 63 16 106/53 L 95 Physical Exam Other/Comments: General Appearance: positive No acute distress and Alert Eyes Bilateral: positive Normal inspection ENT: positive ENT inspection nml Neck: positive Nml inspection Respiratory: positive No respiratory distress and Rales (occasional) Cardiovascular: positive Regular rate & rhythm Abdomen: positive No distention Back: positive Nml inspection Skin: positive Color nml Extremities: positive No pedal edema Neurologic/Psychiatric: positive Oriented x3 LABS 06/09/25 05:32 06/09/25 05:32 FOLLOW UP Follow Up: With PCP, cardiology TIME SPENT Time Spent in Discharge (Minutes): 38 Discharge Plan Discharge Patient Disposition: 06 Home Health Service Condition: Good Prescriptions: New potassium chloride [Klor-Con M20] 20 mEq Tablet,Er Particles/Crystals 20 meq PO DAILYWM 30 Days Qty: 30 0RF Continued losartan 50 mg Tablet 50 mg PO DAILY Qty: 30 3RF aspirin 81 mg tablet,delayed release (DR/EC) 81 mg PO DAILY acetaminophen 500 mg tablet 500 mg PO BID ferrous sulfate 325 mg (65 mg iron) Tablet 325 mg PO DAILYWM Qty: 30 0RF cyanocobalamin (vitamin B-12) 500 mcg tablet 500 mcg PO DAILY Qty: 30 0RF Changed furosemide 20 mg Tablet 40 mg PO DAILY Qty: 30 0RF Activity Restrictions: No Restrictions Diet: Cardiac Health Concerns: You came into the hospital because you had fluid around your lungs, otherwise no has pleural effusion. This was drained yesterday, and you have had improvement in your symptoms. We have increased your dose of Lasix to 40 mg/day. We have added potassium supplements as Lasix can cause increased potassium wasting through your urine. You inform my partner yesterday that you have a follow-up appointment with cardiology. I would like for you to inform them of all of the changes that we have made to your home regimen, and ask for further input from them going forward. We performed echocardiogram while you were here. I do not have the results from your echo right now, but your support services rep will be able to request results from that. Please also follow-up with your PCP Print Language: Nepali Patient Instructions: Coping with Heart Failure Stand Alone Forms: PCP List Follow-up Care: ARABELLA GARCIA MD [Primary Care Provider, Infectious Disease] Vitals documented within 30 minutes of discharge?: Yes
[2025-06-09 13:29] VITALS: BP 108/58; TEMP 97.7; O2SAT 96
--- NOTE | 2025-06-09 18:08 | ECHO Report ---
Version: 1 Study ID: [id number] [id number] Adult Echocardiogram Report Name: KARELY FABIAN Study Date: 06/09/2025, 10: 17 AM BP: 116 / 59 mmHg [place] [facility] [place] HR: 60 bpm : 1940 (MM/DD/YYYY) Gender: Male Height: 64 in Age: 84 Years Weight: 117.947 lb BSA: 1.56 m² Reason For Study: increasing dyspnea History: increasing dyspnea, right pleural effusion h/o HFpEF and MV repair Prior echo: 08/24/2024 Conclusion: Normal LV size and systolic function (LVEF 55-60%) Normal RV size and systolic function Mild-mod TR s/p MV repair with mod-severe MR Interpretation Summary There is mild concentric increase in the wall thickness of the left ventricle. Global left ventricular systolic function is normal. The calculated ejection fraction, as determined by the biplane method of disks, is 55%. The right ventricle is mildly to moderately dilated. The right ventricular systolic function is moderately decreased. An annuloplasty ring is present in the mitral position. There is moderate to severe mitral regurgitation. If clinically appropriate, a transesophageal echocardiogram should be considered to evaluate the patients mitral valve disease. Moderate tricuspid regurgitation present. The pulmonary artery systolic pressure is mildly increased. The pulmonary artery systolic pressure, calculated from a peak tricuspid regurgitant velocity in conjunction with an estimated right atrial pressure, is 44mmHg. Left Ventricle: The left ventricular indexed volume is 78ml/m2. There is mild concentric increase in the wall thickness of the left ventricle. The left ventricle is normal in size. Global left ventricular systolic function is normal. The calculated ejection fraction, as determined by the biplane method of disks, is 55%. No regional wall motion abnormalities are present. Diastolic function could not be accurately assessed due to confounding valvular disease. Right Ventricle: The right ventricle is mildly to moderately dilated. The basal right ventricular diameter measured from a right ventricular focused view is 4.7 cm. The right ventricular systolic function is moderately decreased. Mid to distal free wall is severely hypokinetic. Aortic Valve: The aortic valve is trileaflet. Aortic valve sclerosis is present without stenosis. The aortic valve is moderately thickened. Trace aortic regurgitation is present. Mitral Valve: An annuloplasty ring is present in the mitral position. The mitral valve is not well visualized. Thickened MV leaflets and chordal appartaus. Cannot r/o leaflet prolapse. The diastolic mitral valve mean gradient is 2 mmHg. There is moderate to severe mitral regurgitation. If clinically appropriate, a transesophageal echocardiogram should be considered to evaluate the patients mitral valve disease. Tricuspid Valve: The tricuspid valve is normal in structure and function. Moderate tricuspid regurgitation present. Pulmonic Valve: The pulmonic valve is normal in structure and function. Trace pulmonic valvular regurgitation is present. Left Atrium: The left atrium is severely dilated. The left atrial volume indexed to body surface area is 134 ml/m2. This refers to the maximal volume measured prior to mitral valve opening. Right Atrium: The right atrium is severely dilated. The inferior vena cava is normal in diameter (<2.1cm) but collapse <50% with sniff (estimated right atrial pressure 8 mmHg). Atrial Septum: Lipomatous hypertrophy of the interatrial septum is present. The interatrial septum is shifted rightward, consistent with elevated left atrial pressure. Aorta: The diameter of the ascending aorta is 3.2 cm. The aorta at the sinus of Valsalva measures 3.9cm. Pulmonary Artery: The pulmonary artery systolic pressure, calculated from a peak tricuspid regurgitant velocity in conjunction with an estimated right atrial pressure, is 44mmHg. The pulmonary artery systolic pressure is mildly increased. Pericardium/Pleural Space: There is no pericardial effusion. A right pleural effusion is present. Left Ventricle IVSd: 1.12 cm LVIDd: 5.0 cm LVPWd: 1.11 cm LVIDs: 3.8 cm EDV(MOD-sp4): 115.6 ml LVLd ap4: 7.6 cm ESV(MOD-sp4): 54.6 ml LVLs ap4: 6.6 cm EDV(MOD-sp2): 123.4 ml ESV(MOD-sp2): 53.3 ml Atria LA dimension: 8.3 cm LAV(MOD-sp4): 179.5 ml LAV(MOD-sp2): 173.5 ml Aortic Valve LV V1 mean P.61 mmHg LV V1 mean: 58.5 cm/sec LV V1 VTI: 15.8 cm LV V1 max: 86.4 cm/sec LV V1 max P.0 mmHg Ao max P.0 mmHg Ao V2 max: 223.9 cm/sec Mitral Valve MV max P.5 mmHg MV V2 max: 129.1 cm/sec MV mean P.99 mmHg MV V2 mean: 60.4 cm/sec MV V2 VTI: 37.5 cm Tricuspid Valve TR max P.9 mmHg TR max nita: 299.8 cm/sec TV max P.9 mmHg Aorta Ao root diam: 3.9 cm MMode/2D Measurements & Calculations Ao root diam: 3.9 cm BMI: 20.2 kilograms/m² BSA([facility] [place]): 1.55 m² EDV(MOD-sp2): 123.4 ml EDV(MOD-sp4): 115.6 ml EF (est.): 54.8 % EF Mod BP: 54.8 % ESV(MOD-sp2): 53.3 ml ESV(MOD-sp4): 54.6 ml IVSd: 1.12 cm LA A4C-A/L: 46.4 cm² LA dimension: 8.3 cm LA ESV-A/L: 201.4 ml LAV(MOD-sp2): 173.5 ml LAV(MOD-sp4): 179.5 ml LVIDd: 5.0 cm LVIDs: 3.8 cm LVLd ap4: 7.6 cm LVLs ap4: 6.6 cm LVPWd: 1.11 cm Doppler Measurements & Calculations Ao max P.0 mmHg Ao V2 max: 223.9 cm/sec LV V1 max: 86.4 cm/sec LV V1 max P.0 mmHg LV V1 mean: 58.5 cm/sec LV V1 mean P.61 mmHg LV V1 VTI: 15.8 cm MV max P.5 mmHg MV mean P.99 mmHg MV V2 max: 129.1 cm/sec MV V2 mean: 60.4 cm/sec MV V2 VTI: 37.5 cm PA max P.9 mmHg PA V2 max: 84.6 cm/sec RAP systole: 8.0 mmHg TR max P.9 mmHg TR max nita: 299.8 cm/sec TV max P.9 mmHg Other Measurements & Calculations Ao root area: 12.1 cm² EDV(Teich): 120.8 ml EF(MOD-sp2): 56.8 % EF(MOD-sp4): 52.8 % EF(sp-el): 51.4 % EF(Teich): 49.8 % ESV(Teich): 60.6 ml FS: 25.4 % RVSP(TR): 43.9 mmHg SV(MOD-sp4): 61.0 ml Procedure Notes: A complete two-dimensional transthoracic echocardiogram was performed (2D, M- mode, Doppler and color flow Doppler). Indication: Evaluate cardiac and valve function. The underlying rhythm was atrial flutter. CPT Codes: 92063/[id number]: Transthoracic Echo with Spectral and Color Doppler. MD Johanny Evans 06/09/2025, 6: 07 PM Ordering Physician: Lynnette Coughlin Referring Physician: Malissa Dodge Performed By: Taylor Krishnan RDCS
--- OUTSIDE RECORDS SUMMARY | 2025-06-11 20:03 | EXTERNAL MEDICAL SUMMARY RPT | Clinical Summary ---
Author Organization [facility] Address [address] [place] [address] Care Team Providers Care Shoe Laster Name Role Phone Eloy Rocha Primary Care Provider [phone] Allergies Active Allergy Reactions Criticality Noted Date Comments Latex Rash High 06/07/2016 Sulfa (Sulfonamide Antibiotics) Rash High 06/07/2016 Unable to recall reaction Medications furosemide (LASIX) 20 mg tablet Take 1 tablet (20 mg total) by mouth daily 4 Active losartan (COZAAR) 50 mg tablet Take 1 tablet (50 mg total) by mouth nightly 4 Active aspirin 81 mg EC tablet Take 1 tablet (81 mg total) by mouth daily Active metoprolol succinate XL (TOPROL-XL) 25 mg 24 hr tablet Take 1 tablet (25 mg total) by mouth nightly 5 Active empagliflozin (Jardiance) 10 mg tablet tablet Take 1 tablet (10 mg total) by mouth daily 30 tablet 11 5 Active potassium chloride (KLOR-CON M20) 20 mEq CR tablet Take 1 tablet (20 mEq total) by mouth daily 5 Active FeroSuL 325 mg (65 mg iron) tablet Take 1 tablet (325 mg total) by mouth daily with breakfast 5 Active cyanocobalamin, vitamin B-12, (VITAMIN B-12 ORAL) Take 2,500 mg by mouth Active Active Problems Problem Noted Date Diagnosed Date Vertebral osteomyelitis 08/20/2024 Positive blood cultures 08/20/2024 Encounters Date Type Department Care Team Description 06/10/2025 11:20 AM PST Office Visit Merged With [facility] Cardiology [address], [place] [phone] Aman Bryan MD Chronic heart failure with mildly reduced ejection fraction (HFmrEF, 41-49%) (CMS/HCC) (Primary Dx); Longstanding persistent atrial fibrillation (CMS/HCC); HILL (dyspnea on exertion); Mitral valve insufficiency, unspecified etiology 06/10/2025 Telephone Merged With [facility] Infectious Diseases [place] [address] [place] [address] Eri Garcia MD 05/17/2025 Telephone Merged With [facility] Infectious Diseases [place] [address] [facility] [address] [place] [address] Eri Garcia MD Test Results (Xray results ) from Last 3 Months Immunizations Immunization Administration Dates Next Due FLU PF 6+Mos Quad (Fluzone, FluLaval, Fluarix) 0 03/07/2016 Pneumococcal Conjugate PCV13 (Syunqah07) 004 Social History Tobacco Use Types Packs/Day Years Used Date Smoking Tobacco: Former Cigarettes Smokeless Tobacco: Never Sex and Gender Information Value Date Recorded Sex Assigned at Not on file Legal Sex Male 4:46 PM PDT Gender Identity Not on file Sexual Orientation Not on file Last Filed Vital Signs Vital Sign Reading Time Taken Comments Blood Pressure 68/40 06/10/2025 10:59 AM PST Pulse 60 06/10/2025 10:59 AM PST Temperature 36.7 C (98.1 F) 08/20/2024 11:43 AM PST Respiratory Rate 16 08/20/2024 11:43 AM PST Oxygen Saturation 100% 08/20/2024 11:43 AM PST Inhaled Oxygen Concentration - - Weight 52.2 kg (115 lb) 06/10/2025 10:59 AM PST Height 165.1 cm (5' 5") 06/10/2025 10:59 AM PST Body Mass Index 19.14 06/10/2025 10:59 AM PST Plan of Treatment Upcoming Encounters Date Type Department Care Team (Late st Contact Info) Description 06/14/2025 8:[address] [facility] Echocardiography [address] [place] [address] Aman Bryan MD [address] [place] [address] [address] [place], [place] [phone] 06/24/2025 1:10 PM PST Office Visit Merged With [facility] Cardiology [address], [place] [phone] Aman Bryan MD [address] [place] [address] Health Maintenance Due Date Last Done Comments Medicare Annual Wellness (AWV) 1940 Depression Screening (PHQ-2) 1952 Zoster Vaccines (1 of 2) 1988 Fall Risk Screening 11/09/2003 HM Pneumococcal Adult 50+ (2 of 2 - PPSV23, PCV20, or PCV21) 01/04/2004 11/09/2003 RSV Patients Over 60 years OR qualifying ( Patients) (1 - 1-dose 75+ series) 2013 DTaP,Tdap,and Td Vaccines (2 - Td or Tdap) 07/07/2020 07/07/2010 COVID-19 Vaccine ( season) 2025 05/29/2022, 10/22/2021, 04/24/2021, Additional history exists Influenza Vaccine (#1) 2025 , 05/07/2022, 05/03/2021, Additional history exists HPV Vaccines Aged Out No longer eligi ble based on patient's age to complete this topic Hepatitis A Vaccines Aged Out No long er eligible based on patient's age to complete this topic Hepatitis B Vaccines Aged Out No long er eligible based on patient's age to complete this topic IPV Vaccines Aged Out No longer eligi ble based on patient's age to complete this topic MMR Vaccines Aged Out No longer eligi ble based on patient's age to complete this topic Procedures Procedure Name Priority Date/Time Associated Diagnosis Comments XR EXTERNAL RESULTS 06/08/2025 US EXTERNAL RESULTS 06/08/2025 from Last 3 Months Results * US EXTERNAL RESULTS (06/08/2025) Narrative 06/08/2025 Ordered by an unspecified provider. us Provider External MD [facility] US PROCEDURES Final Result * XR EXTERNAL RESULTS (06/08/2025) Narrative 06/08/2025 Ordered by an unspecified provider. us Provider External MD [facility] XR PROCEDURES Final Result from Last 3 Months Insurance [facility] [place] [id number] Care Teams Shoe Laster Relationship Specialty Start Date End Date Eloy Rocha [address] [place] [address] PCP - General Internal Medicine 11/15/24
--- OUTSIDE RECORDS SUMMARY | 2025-06-11 20:03 | EXTERNAL MEDICAL SUMMARY RPT | Encounter Summary ---
Author Organization [facility] Address [address] [place] [address] Care Team Providers Care Jeep Driver Name Role Phone Eloy Rocha Primary Care Provider [phone] Encounter Details Date Type Department Care Team (Late Contact Info) Description 03/02/2025 Orders Only [facility] [address], [place] [address] Aman Bryan MD [address] [place] [address] HILL (dyspnea on exertion) Social History Tobacco Use Types Packs/Day Years Used Date Smoking Tobacco: Former Cigarettes Smokeless Tobacco: Never Sex and Gender Information Value Date Recorded Sex Assigned at Not on file Legal Sex Male 4:46 PM PDT Gender Identity Not on file Sexual Orientation Not on file documented as of this encounter Plan of Treatment Upcoming Encounters Date Type Department Care Team (Late Contact Info) Description 06/14/2025 8:40 AM PST Appointment [facility] Echocardiography [address] [place] [phone] Aman Bryan MD [address] [place] [address] [place] [address] 06/24/2025 1:10 PM PST Office Visit [facility] [place] [phone] [facility], [place] [phone] Aman Bryan MD [address] [place] [phone] documented as of this encounter Procedures Procedure Name Priority Date/Time Associated Diagnosis Comments COMPLETE BLOOD COUNT Routine 03/02/2025 HILL (dyspnea on exertion) B-TYPE NATRIURETIC PEPTIDE Routine 03/02/2025 HILL (dyspnea on exertion) BASIC METABOLIC PANEL Routine 03/02/2025 HILL (dyspnea on exertion) documented in this encounter Results * Complete blood count without diff (03/02/2025) Blood Venous blood / Unknown Aman Bryan MD LAB BLOOD ORDERABLES Final R esult Performing Organization Address [facility] Co de Phone Number [facility] [address], [place] [phone] * Basic metabolic panel (03/02/2025) Blood Venous blood / Unknown Aman Bryan MD LAB BLOOD ORDERABLES Final R esult Performing Organization Address [facility] Co de Phone Number [facility] [address], [place] [phone] * NT-Pro B-Type Natriuretic Peptide (03/02/2025) Blood Venous blood / Unknown us Aman Bryan MD LAB BLOOD ORDERABLES Final R esult Performing Organization Address [facility] Co de Phone Number [id number] [address], [place] [phone] documented in this encounter Visit Diagnoses Diagnosis HILL (dyspnea on exertion) Other dyspnea and respiratory abnormality documented in this encounter Care Teams Jeep Driver Relationship Specialty Start Date End Date Eloy Rocha [address] [place] [address] PCP - General Internal Medicine 11/15/24 documented as of this encounter
--- OUTSIDE RECORDS SUMMARY | 2025-06-11 20:03 | EXTERNAL MEDICAL SUMMARY RPT | Encounter Summary ---
Author Organization [facility] Address [address] [place] [address] Care Team Providers Care Dimension Mill Worker Name Role Phone Eloy Rocha Primary Care Provider [phone] Encounter Details Date Type Department Care Team (Late st Contact Info) Description 06/10/2025 Telephone [facility] Infectious Diseases [place] [address] [facility] [address] [place] [address] Eri Garcia MD [address] [place] [address] Social History Tobacco Use Types Packs/Day Years Used Date Smoking Tobacco: Former Cigarettes Smokeless Tobacco: Never Sex and Gender Information Value Date Recorded Sex Assigned at Not on file Legal Sex Male 4:46 PM PDT Gender Identity Not on file Sexual Orientation Not on file documented as of this encounter Miscellaneous Notes * Telephone Encounter - Yoli Lu - 06/10/2025 8:28 AM PST Images from the original note were not included. [facility] Health Exam report from 06/09 documented in this encounter Plan of Treatment Upcoming Encounters Date Type Department Care Team (Late st Contact Info) Description 06/14/2025 8:[address] [facility] Echocardiography [address] [place] [address] Aman Bryan MD [address] [place] [address] 06/24/2025 1:10 PM PST Office Visit [facility] Cardiology [place] [address], [place] [address] Aman Bryan MD [address] [place] [address] documented as of this encounter Visit Diagnoses Not on filedocumented in this encounter Care Teams Dimension Mill Worker Relationship Specialty Start Date End Date Eloy Rocha [address] [place] [address] PCP - General Internal Medicine 11/15/24 documented as of this encounter
--- OUTSIDE RECORDS SUMMARY | 2025-06-11 20:03 | EXTERNAL MEDICAL SUMMARY RPT | Encounter Summary ---
Author Organization [facility] Address [address] [place] [address] Care Team Providers Care Rewards Consultant Name Role Phone Eloy Rocha Primary Care Provider [phone] Encounter Details Date Type Department Care Team (Late Contact Info) Description 08/17/2024 Telephone [facility] Infectious Diseases [place] [address] [facility] [address] [place] [address] Pcp, None Selected Social History Tobacco Use Types Packs/Day Years Used Date Smoking Tobacco: Never Assessed Sex and Gender Information Value Date Recorded Sex Assigned at Not on file Legal Sex Male 4:46 PM PDT Gender Identity Not on file Sexual Orientation Not on file documented as of this encounter Miscellaneous Notes * Telephone Encounter - Rachel Guardado - 08/17/2024 10:53 AM PST Patient calling to see what the appt on 08/20/24 is for and if he can make it for later time, he is coming from [facility] Warm transfer to frontline documented in this encounter Plan of Treatment Upcoming Encounters Date Type Department Care Team (Late st Contact Info) Description 06/14/2025 8:40 AM PST Appointment [facility] Echocardiography [address] [place] [address] Aman Bryan MD [address] [place] [address] 06/24/2025 1:10 PM PST Office Visit [facility] Cardiology [address], [place] [phone] Aman Bryan MD [address] [place] [address] [address] [place] [address] documented as of this encounter Visit Diagnoses Not on filedocumented in this encounter Care Teams Rewards Consultant Relationship Specialty Start Date End Date Eloy Rocha [address] [place] [address] PCP - General Internal Medicine 11/15/24 documented as of this encounter
--- OUTSIDE RECORDS SUMMARY | 2025-06-11 20:03 | EXTERNAL MEDICAL SUMMARY RPT ---
Author Organization [facility] Care Team Providers Care Mottler Operator Name Role Phone TRUE KWAN Unavailable Unavailable TIMBO VEGA Unavailable Unavailable LUH WHITT Unavailable Unavailable EMMETT SENA Unavailable Unavailable FABIEN NOLAN Unavailable Unavailable TALYA CHONG Unavailable Unavailable CAMPBELL MONAE Unavailable Unavailable SUZANNE ESQUEDA Unavailable Unavailable Allergies and adverse reactions Code CodeSystem Substance Reaction Severity StartDate Concern Status latex Moderate 04/25/[address] Sulfa Antibiotics Moderate active Care Team Name Role Address Phone Organization Dates SUZANNE ESQUEDA PCP [address] [address], [place], [address], [place] (Office): : [facility] 04/25/2024 - 05/07/2024 TRUE KWAN [address] [facility] [address], [place], [address], [place] (Office): : : [facility] 04/25/2024 - 05/07/2024 [facility] [address] [facility], [place], [address], [place] (Office): : [facility] 04/25/2024 - 05/07/2024 LUH WHITT [address], [place], [address], [facility] (Office): : [facility] 04/25/2024 - 05/07/2024 EMMETT SENA [address], [place], [address], [facility] (Office): [facility] 04/25/2024 - 05/07/2024 FABIEN NOLAN [address], [place], [place], [address], [place] (Office): : [facility] 04/25/2024 - 05/07/2024 TALYA CHONG [address], [place], [address], [facility] (Office): [facility] 04/25/2024 - 05/07/2024 CAMPBELL MONAE [address], [place], [address], [place] (Office): : [facility] 04/25/2024 - 05/07/2024 Immunizations Immunization Status Vaccine Details Vaccine Code CodeSystem Date Notes Influenza cancelled Influenza, high-dose, split virus, quadrivalent, injectable, preservative free 197 CVX created date: 04/30/2024 consent date: 04/29/2024 Educated by on 04/29/2024 TB 2 Step Mantoux Skin Test new tuberculin skin test; unspecified formulation 98 CVX created date: 05/21/2024 consent date: 04/25/2024 TB 2 Step Mantoux Skin Test completed tuberculin skin test; unspecified formulation lotNumber: [id number] expiry: 11/04/2026 Mfg: [employer] Given 0.1 ml Left Forearm intradermally Step 1 of Multi-step with next step required 98 CVX created date: 04/25/2024 consent date: 04/25/2024 administer ed date: 04/25/2024 SARS-COV-2 (COVID-19) completed Given 0.5 ml Left Deltoid intramuscularly Step 1 of Multi-step with next step required created date: 04/30/2024 consent date: 04/29/2024 administer ed date: 04/30/2024 Educated by on 04/29/2024 [facility] Status Section Date Assessment Total Score Description 05/07/2024 BIMS 12 moderate cognit prabhakar impairment CAM 0 No delirium ind icated PHQ-9 00 04/28/2024 BIMS 10 moderate cognit prabhakar impairment CAM 0 No delirium ind icated PHQ-9 14 moderate depres lanie Insurance Providers Coverage Status Coverage Type Relationship to Subscriber Member Identifier Subscriber Identifier Group Identifier Payer Identifier and Other information 2024 Code: 51 Code System OID:[id number] .327428.3.221. 5 Code System Name: Source of Payment Typology (PHDSC) Display: Managed Care (Private) Translation: Code: Code System: OID:2.16.840.1 .188454.6.255. 1336 Code System Name: Insurance Type Code ([id number]) Display Name: Health Maintenance Organization (HMO) Plan Code: SELF Code System Name: HL7 RoleCode Code System OID:[id number] .609205.5.111 Display Name: Self [id number] Root: [id number] Extension: [employer] Payer Name: [facility] Address: [address] [address] City: [place] State: [place] Country: [facility] Telecom: [phone] Code: 81 Code System OID:2.16.840.1 .881451.3.221. 5 Code System Name: Source of Payment Typology (PHDSC) Display: Self Pay Translation: Code: 09 Code System: OID:2.16.840.1 .003014.6.255. 1336 Code System Name: Insurance Type Code ([id number]) Display Name: Self-pay 2024 Code: 51 Code System OID:2.16.840.1 .686388.3.221. 5 Code System Name: Source of Payment Typology (PHDSC) Display: Managed Care (Private) Translation: Code: HM Code System: OID:2.16.840.1 .418688.6.255. 1336 Code System Name: Insurance Type Code ([id number]) Display Name: Health Maintenance Organization (HMO) Plan Code: SELF Code System Name: HL7 RoleCode Code System OID:[id number] .818182.5.111 Display Name: Self [id number] Root: [id number] Extension: [employer] Payer Name: [facility] Address: [address] [address] City: [place] State: [place] Country: [facility] Telecom: [phone] Problems Problem # Description Date of onset Resolved Date Code CodeSystem Concern Status 1 ACUTE ON CHRONIC SYSTOLIC (CONGESTIVE) HEART FAILURE [address] active [address] active 3 BENIGN PROSTATIC HYPERPLASIA WITHOUT LOWER URINARY TRACT SYMPTOMS [address] active 4 CHRONIC ATRIAL FIBRILLATION, UNSPECIFIED [address] active 5 ESSENTIAL (PRIMARY) HYPERTENSION [address] active 6 MUSCLE WEAKNESS (GENERALIZED) [address] active 7 NEED FOR ASSISTANCE WITH PERSONAL CARE [address] active 8 OTHER LACK OF COORDINATION [address] active 9 REPEATED FALLS [address] active 10 RETENTION OF URINE, UNSPECIFIED [address] active Reason for Referral No Reasons for Referral Entered Social History Social History Observation Description Start Date End Date Code Code System Current Smoking Status Tobacco smoking consumption unknown 483682921 SNOMED CT Sex Assigned At Male 1940 58336-3 LOINC Gender Identity Sexual Orientation Vital Signs Code Code System Vitals Name Values and Units Timing Information 9279-1 LOINC Respiratory Rate Value=17.0 Units=/m in 05/07/2024 8462-[facility] Blood Pressure-Diastolic Value=76 Un its=mmHg 05/07/2024 8480-6 [facility] Blood Pressure-Systolic Fxvib=725 Un its=mmHg 05/07/2024 8310-5 [facility] Body Temperature Value=98.2 Units= F 05/07/2024 8867-4 [facility] Heart rate Value=81.0 Units=/min 07/2023 11050-3 [facility] Weight Djufr=311.6 Units=Lbs 07/2023 70967-6 [facility] O2 % BldC Oximetry Value=97.0 Units= % 05/07/2024 71033-[facility] Pain Level Value=0.0 05/06/2024 8302-2 [facility] Height Value=66.0 Units=Inches 04/26/2024
--- OUTSIDE RECORDS SUMMARY | 2025-06-11 20:03 | EXTERNAL MEDICAL SUMMARY RPT | Encounter Summary ---
Author Organization [facility] Address [address] [place] [address] Care Team Providers Care Product Marketing Programs Manager Name Role Phone Eloy Rocha Primary Care Provider [phone] Encounter Details Date Type Department Care Team (Late Contact Info) Description 08/20/2024 Orders Only [facility] Infectious Diseases [place] [address] [facility] [address] [place] [address] Eri Garcia MD [address] [place], [place] [phone] Social History Tobacco Use Types Packs/Day Years [...] Info) Description 06/14/2025 8:40 AM PST Appointment [facility] Echocardiography [address] [place] [address] Aman Bryan MD [address] [facility] [address] [place], [place] [id number] 06/24/2025 1:10 PM PST Office Visit [facility] Cardiology [address], [place] [phone] Aman Bryan MD [facility] [address] [place] [address] [address] [place], [place] [phone] documented as of this encounter Visit Diagnoses Not on filedocumented in this encounter Care Teams Product Marketing Programs Manager Relationship Specialty Start Date End Date Eloy Rocha [address] [place] [address] PCP - General Internal Medicine 11/15/24 documented as of this encounter
--- OUTSIDE RECORDS SUMMARY | 2025-06-11 20:03 | EXTERNAL MEDICAL SUMMARY RPT | Encounter Summary ---
Author Organization [facility] Address [address] [place] [address] Care Team Providers Care Behavioral Health Consultant Name Role Phone Eloy Rocha Primary Care Provider [phone] Reason for Referral * Diagnostic Imaging (Urgent) - Authorized Specialty Diagnoses / Procedures Referred By Divina t Referred To Contact Radiology Diagnoses Chronic heart failure with mildly reduced ejection fraction (HFmrEF, 41-49%) ([facility]) Procedures ECHOCARDIOGRAM COMPLETE ECHOCARDIOGRAM COMPLETE Cedrick Bryan MD [address] [place] [address] [address] [place] [address] Phone: tel: fax: [facility] [address] [place] [address] Phone: tel: Referral ID Status Reason Start Date Expiration Date Visits Requested Visits Authorized [id number] Authorized Specialty Services Required 06/10/2025 06/05/2026 1 1 Reason for Visit * Reason Comments Chronic heart failure with mildly reduce d ejection fraction * Evaluate and Treat (Routine) - Authorized Specialty Diagnoses / Procedures Referred By Divina t Referred To Contact Cardiology Diagnoses CHF (congestive heart failure) ([facility]/HCC) A-fib (CMS/HCC) CAD (coronary artery disease) Ting Vogt ARNP [address] [place] [address] [place] [address] Phone: tel: fax: [facility] [place] [address] [facility], [place] [address] Phone: tel: fax: Referral ID Status Reason Start Date Expiration Date V isits Requested Visits Authorized [id number] Authorized 11/22/2024 11/17/2025 1 6 Encounter Details Date Type Department Care Team (Late st Contact Info) Description 06/10/2025 11:20 AM PST Office Visit [facility] [address], [place] [address] Cedrick Bryan MD [address] [place] [address] [address] [place], [place] [id number] Chronic heart failure with mildly reduced ejection fraction (HFmrEF, 41-49%) (CMS/HCC) (Primary Dx); Longstanding persistent atrial fibrillation (CMS/HCC); HILL (dyspnea on exertion); Mitral valve insufficiency, unspecified etiology Social History Tobacco Use Types Packs/Day Years Used Date Smoking Tobacco: Former Cigarettes Smokeless Tobacco: Never Sex and Gender Information Value Date Recorded Sex Assigned at Not on file Legal Sex Male 4:46 PM PDT Gender Identity Not on file Sexual Orientation Not on file documented as of this encounter Last Filed Vital Signs Vital Sign Reading Time Taken Comments Blood Pressure 68/40 06/10/2025 10:59 AM PST Pulse 60 06/10/2025 10:59 AM PST Temperature - - Respiratory Rate - - Oxygen Saturation - - Inhaled Oxygen Concentration - - Weight 52.2 kg (115 lb) 06/10/2025 10:59 AM PST Height 165.1 cm (5' 5") 06/10/2025 10:59 AM PST Body Mass Index 19.14 06/10/2025 10:59 AM PST documented in this encounter Progress Notes * Cedrick Bryan MD - 06/10/2025 11:20 AM PST Subjective Patient ID: Landon Madsen is a 84 y.o. male that presents today for had concerns including Chronic heart failure with mildly reduced ejection fraction. HPI: 84 yo M h/o HF, CABG, AF, and mitral regurgitation here for F/U on his heart issues. He is here with his ( 1960). is quite anxious about seeing doctors due to prior bad experience. Since his last visit, he has been hospitalized twice for HF exacerbation. Complete records are not available for my review. It appears that he has needed therapeutic thoracentesis during the hospitalizations. Dyspnea improved with diuresis and thoracentesis. He uses a cane and can walk in his house without any issue. He has occasional lightheadedness on getting up from seated position. Denies chest pain, palpitations, or syncope. 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 # Former smoker and quit back in the Social History Socioeconomic History Marital status: Unknown Tobacco Use Smoking status: Former Types: Cigarettes Smokeless tobacco: Never Allergies Allergen Reactions Latex Rash Sulfa (Sulfonamide Antibiotics) Rash Unable to recall reaction Current Medication List Sig aspirin 81 mg EC tablet Take 1 tablet (81 mg total) by mouth daily cyanocobalamin, vitamin B-12, (VITAMIN B-12 ORAL) Take 2,500 mg by mouth empagliflozin (Jardiance) 10 mg tablet tablet Take 1 tablet (10 mg total) by mouth daily FeroSuL 325 mg (65 mg iron) tablet Take 1 tablet (325 mg total) by mouth daily with breakfast furosemide (LASIX) 20 mg tablet Take 1 tablet (20 mg total) by mouth daily losartan (COZAAR) 50 mg tablet Take 1 tablet (50 mg total) by mouth nightly metoprolol succinate XL (TOPROL-XL) 25 mg 24 hr tablet Take 1 tablet (25 mg total) by mouth nightly potassium chloride (KLOR-CON M20) 20 mEq CR tablet Take 1 tablet (20 mEq total) by mouth daily Review of Systems Constitutional: Positive for fatigue and unexpected weight change (loss). Eyes: Negative for visual disturbance. Respiratory: Negative for chest tightness and shortness of breath. Cardiovascular: Negative for chest pain, palpitations and leg swelling. Gastrointestinal: Negative for blood in stool. Endocrine: Positive for polydipsia. Genitourinary: Negative for hematuria. Skin: Negative for rash. Neurological: Positive for dizziness, weakness and light-headedness. Hematological: Does not bruise/bleed easily. Psychiatric/Behavioral: The patient is nervous/anxious. All other systems reviewed and are negative. Objective BP (!) 68/40 | Pulse 60 | Ht 1.651 m | Wt 52.2 kg | BMI 19.14 kg/m² Physical Exam: General appearance: No apparent distress, well-nourished, pleasant, cooperative HEET: Normocephalic atraumatic, no scleral icterus, tongue midline, mucous membranes moist Neck: supple Cardiovascular: RRR, normal S1 and normal S2, 3/6 holosystolic systolic murmur auscultated, no JVD,there is bilateral peripheral edema Respiratory: Good aeration, CTAB Abdomen: Soft, nontender, nondistended, + bowel sounds Neuro: Alert, no facial droop, tongue midline, no gross motor deficits Psych: appropriate affect Skin: no rashes on face, neck, and lower extremities Echo 08/24/2024: Normal LV size and systolic function EF 55 to 60%. Normal RV size and systolic function. Mild to moderate tricuspid regurgitation. S/p mitral repair with annuloplasty ring with moderate to severe mitral regurgitation Labs 08/20/2024: WBC 5.8, hematocrit 26.3, platelets 170, sodium 137, potassium 4.4, chloride 105, CO2 24, BUN 24, creatinine 0.8 Labs 03/02/2025: Pro BNP 4050, sodium 138, potassium 4.7, chloride 106, cO2 21, BUN 29, Cr 0.89 Assessment/Plan Comments: 1. Chronic heart failure with mildly reduced ejection fraction (HFmrEF, 41-49%) ([facility]) Basic metabolic panel, Complete blood count without diff, B-type natriuretic peptide (BNP), ECHOCARDIOGRAM COMPLETE 2. Longstanding persistent atrial fibrillation ([facility]) 3. HILL (dyspnea on exertion) 4. Mitral valve insufficiency, unspecified etiology # HFmEF: EF 41% on Echo 07/2024 that improved to 55-60% on Echo 08/2024. Etiology could be the mitralregurgitation. - Continue metoprolol XL 25 mg daily - Continue losartan 50 mg nightly - Continue Jardiance 10 mg daily. - Continue furosemide 20mg daily with potassium supplementation through PCP # Mitral valve regurgitation from flail leaflet s/p mitral valve repair 2016: moderate to severe residual MR on Echo 08/2024. - Echo now to discuss med management vs mitraclip. # CAD s/p 1V CABG (SVG to RCA 2016) - Continue aspirin 81 mg daily - Patient declined statin in the past. Will revisit it in future # Persistent atrial fibrillation - Continue metoprolol as above # Goals of care: patient wants to keep going as he has a who he doesn't want to leave alone. F/U in 2-3 weeks with echo and labs. Electronically signed by Cedrick Bryan MD 06/10/2025 11:37 AM documented in this encounter Miscellaneous Notes * Addendum Note - Cedrick Bryan MD - 06/10/2025 11:20 AM PSTAddended by: CEDRICK BRYAN on: 06/10/2025 11:58 AM Modules accepted: Orders documented in this encounter Plan of Treatment Upcoming Encounters Date Type Department Care Team (Late st Contact Info) Description 06/14/2025 8:40 AM PST Appointment [facility] [address] [place] [address] Cedrick Bryan MD [address] [place] [address] [address] [place], [place] [phone] 06/24/2025 1:10 PM PST Office Visit [facility] [address], [place] [address] Cedrick Bryan MD [address] [place] [address] [address] [place], [place] [phone] Scheduled Orders Name Type Priority Associated Diagnoses Order Schedule Basic metabolic panel Lab Routine Chronic heart failure with mildly reduced ejection fraction (HFmrEF, 41-49%) ([facility]) Expected: 06/10/2025, Expires: 12/09/2026 Complete blood count without diff Lab Routine Chronic heart failure with mildly reduced ejection fraction (HFmrEF, 41-49%) ([facility]) Expected: 06/10/2025, Expires: 12/09/2026 B-type natriuretic peptide (BNP) Lab Routine Chronic heart failure with mildly reduced ejection fraction (HFmrEF, 41-49%) ([facility]) Expected: 06/10/2025, Expires: 09/08/2026 ECHOCARDIOGRAM COMPLETE Imaging Urgent ( Imaging Only) Chronic heart failure with mildly reduced ejection fraction (HFmrEF, 41-49%) ([facility]) Expected: 06/10/2025, Expires: 06/10/2027 documented as of this encounter Visit Diagnoses Diagnosis Chronic heart failure with mildly reduced ejection fraction (HFmrEF, 41-49%) ([facility])- Primary Longstanding persistent atrial fibrillation ([facility]) HILL (dyspnea on exertion) Other dyspnea and respiratory abnormality Mitral valve insufficiency, unspecified etiology documented in this encounter Care Teams Behavioral Health Consultant Relationship Specialty Start Date End Date Eloy Rocha [address] [place] [address] PCP - General Internal Medicine 11/15/24 documented as of this encounter
--- OUTSIDE RECORDS SUMMARY | 2025-06-11 20:03 | EXTERNAL MEDICAL SUMMARY RPT ---
Author Organization [facility] Insurance Providers Reason for Referral No Reasons for Referral Entered Social History Social History Observation Description Start Date End Date Code Code System Current Smoking Status Tobacco smoking consumption unknown 174460743 SNOMED CT Sex Assigned At Male 1940 [address]6 [facility] Gender Identity Sexual Orientation
--- OUTSIDE RECORDS SUMMARY | 2025-06-11 20:08 | EXTERNAL MEDICAL SUMMARY RPT ---
Author Organization [facility] Insurance Providers Reason for Referral No Reasons for Referral Entered Social History Social History Observation Description Start Date End Date Code Code System Current Smoking Status Tobacco smoking consumption unknown 623674302 SNOMED CT Sex Assigned At Male 1940 [address]8 [facility] Gender Identity Sexual Orientation
--- OUTSIDE RECORDS SUMMARY | 2025-06-11 20:08 | EXTERNAL MEDICAL SUMMARY RPT ---
Author Organization [facility] Care Team Providers Care Nurse Chemical Dependency Name Role Phone TRUE KWAN Unavailable Unavailable TIMBO VEGA Unavailable Unavailable LUH WHITT Unavailable Unavailable EMMETT SENA Unavailable Unavailable FABIEN NOLAN Unavailable Unavailable TALYA CHONG Unavailable Unavailable CAMPBELL MONAE Unavailable Unavailable SUZANNE ESQUEDA Unavailable Unavailable Allergies and adverse reactions Code CodeSystem Substance Reaction Severity StartDate Concern Status latex Moderate 04/25/[address] Sulfa Antibiotics Moderate active Care Team Name Role Address Phone Organization Dates SUZANNE ESQUEDA PCP [address] [address], [place], [address], [place] (Office[place] : [facility] 04/25/2024 - 05/07/2024 TRUE KWAN [address] [facility] [address], [place], [address], [place] (Office): : : [facility] 04/25/2024 - 05/07/2024 [facility] [address] [facility], [place], [address], [place] (Office): : [facility] 04/25/2024 - 05/07/2024 LUH WHITT [address], [place], [address], [facility] (Office): : [facility] 04/25/2024 - 05/07/2024 EMMETT SENA [address], [place], [address], [facility] (Office): [facility] 04/25/2024 - 05/07/2024 FABIEN NOLAN [address], [place], [place], [address], [place] (Office): : [facility] 04/25/2024 - 05/07/2024 TALYA CHONG [address], [place], [address], [facility] (Office): [facility] 04/25/2024 - 05/07/2024 CAMPBELL MONAE [address], [place], [address], [place] (Office): : [facility] 04/25/2024 - 05/07/2024 Immunizations Immunization Status Vaccine [...] completed tuberculin skin test; unspecified formulation lotNumber: [id number] expiry: 11/04/2026 Mfg: [employer] Given [...] 04/30/2024 Educated by on 04/29/2024 [facility] Status Section Date Assessment Total Score [...] information 2024 Code: 51 Code System OID:2.16.840.1 .395619.3.221. 5 Code System Name: Source of Payment Typology (PHDSC) Display: Managed Care (Private) Translation: Code: Code System: OID:2.16.840.1 .741696.6.255. 1336 Code System Name: Insurance Type Code ([id number]) Display Name: Health Maintenance Organization (HMO) Plan Code: SELF Code System Name: HL7 RoleCode Code System OID:2.16.840.1 .022328.5.111 Display Name: Self [id number] Root: [id number] Extension: [employer] Payer Name: [facility] Address: [facility] [address] City: [place] State: [place] Country: [facility] Telecom: [phone] Code: 81 Code System OID:2.16.840.1 .508001.3.221. 5 Code System Name: Source of Payment Typology (PHDSC) Display: Self Pay Translation: Code: 09 Code System: OID:2.16.840.1 .952056.6.255. 1336 Code System Name: Insurance Type Code ([id number]) Display Name: Self-pay 2024 Code: 51 Code System OID:2.16.840.1 .233515.3.221. 5 Code System Name: Source of Payment Typology (PHDSC) Display: Managed Care (Private) Translation: Code: HM Code System: OID:2.16.840.1 .683267.6.255. 1336 Code System Name: Insurance Type Code ([id number]) Display Name: Health Maintenance Organization (HMO) Plan Code: SELF Code System Name: HL7 RoleCode Code System OID:2.16.840.1 .627699.5.111 Display Name: Self [id number] Root: [id number] Extension: [employer] Payer Name: [facility] Address: [facility] [address] City: [place] State: [place] Country: [facility] Telecom: [phone] Problems Problem # Description Date of onset Resolved Date Code CodeSystem Concern Status 1 ACUTE ON CHRONIC SYSTOLIC (CONGESTIVE) HEART FAILURE [address] active 2 [address]EREM[address] active 3 BENIGN PROSTATIC HYPERPLASIA WITHOUT LOWER URINARY TRACT SYMPTOMS [address] active 4 CHRONIC ATRIAL FIBRILLATION, UNSPECIFIED [address] active 5 ESSENTIAL (PRIMARY) HYPERTENSION [address] active 6 MUSCLE WEAKNESS (GENERALIZED) [address] active 7 NEED FOR ASSISTANCE WITH PERSONAL CARE [address] active 8 OTHER LACK OF COORDINATION [address] active 9 REPEATED FALLS [address] active 10 RETENTION OF URINE, UNSPECIFIED [address] active Reason for Referral No Reasons for Referral Entered Social History Social History Observation Description Start Date End Date Code Code System Current Smoking Status Tobacco smoking consumption unknown 158054605 SNOMED CT Sex Assigned At Male 1940 [address]-0 LOINC Gender Identity Sexual Orientation Vital Signs Code Code System Vitals Name Values and Units Timing Information 9279-1 LOINC Respiratory Rate Value=17.0 Units=/m in 05/07/2024 8462-4 [facility] Blood Pressure-Diastolic Value=76 Un its=mmHg 05/07/2024 8480-6 [facility] Blood Pressure-Systolic Lqntj=573 Un its=mmHg 05/07/2024 8310-5 [facility] Body Temperature Value=98.2 Units= F 05/07/2024 8867-4 [facility] Heart rate Value=81.0 Units=/min 07/2023 79055-5 [facility] Weight Fvyxq=490.6 Units=Lbs 07/2023 70686-2 [facility] O2 % BldC Oximetry Value=97.0 Units= % 05/07/2024 89239-5 [facility] Pain Level Value=0.0 05/06/2024 8302-2 [facility] Height Value=66.0 Units=Inches 04/26/2024
== END 2025-06-09 13:29 | disposition home health service (06) | DRG 291 ==
LOC: ED 10:06 → MS2 10:06
PROVIDERS: ADMIT Physician Assistant Medical; ATTEND Physician Assistant Medical